=== PATIENT | female | born 1965 | race Caucasian/White ===

== ENCOUNTER → 2017-10-07 16:39 | Outpatient (CLI) | payer OTHER, SELFPAY | PROVIDERS: Visit Provider Otolaryngology Otolaryngology/Facial Plastic Surgery | DX: K14.0 Glossitis (principal); J02.9 Acute pharyngitis, unspecified | CPT/HCPCS: 87070 ==

== ENCOUNTER → 2017-10-21 08:14 | Outpatient (CLI) | payer OTHER, SELFPAY ==
--- NOTE | 2017-10-21 08:16 | US_ITS ---
STUDY: ABDOMINAL ULTRASOUND - RIGHT UPPER QUADRANT REASON FOR VISIT: Female, 52 years old. Elevated liver function tests. TECHNIQUE: Ultrasound evaluation of the right upper quadrant was performed with real-time and static rea-scale imaging. TECHNICAL QUALITY: Adequate. COMPARISON: None. FINDINGS: Liver: The liver measures 15.7 cm. There is increased echogenicity consistent with fatty infiltration. The bile ducts are within normal limits. There is hepatic color flow. The direction of portal flow is hepatopetal. There is no demonstrated mass lesion. Gallbladder: The patient is status post cholecystectomy. Common Bile Duct (C.B.D.): The common bile duct measures 5.5 mm. Pancreas: Normal size of the head of the pancreas. The head and body portions are obscured due to overlying bowel gas. There is normal echogenicity of the pancreas. There is no demonstrated pancreatic mass or cyst. Right Kidney: Normal size of the right kidney. The right kidney measures 10.1 cm x 4.8 cm x 4.4 cm. Normal renal cortex. The right cortex measures 1.4 cm. There is no demonstrated renal mass or cyst. There is no right hydronephrosis. There is a 4 mm calculus in the upper pole. US/Liver IMPRESSION: Fatty infiltration of the liver. Nonobstructive calculus in the upper pole of the right kidney. Electronically Signed: Philipp Gupta MD at 15:40 EST Tel [phone], Service support ,
[2017-10-21 10:20] LABS: Color, Urine Yellow (Yellow); Glucose, Dipstick Normal (Normal); Ketone-Dipstick Negative (Negative); Leukocyte Esterase-Dipstick 25 /ul (Negative); Nitrite-Dipstick Negative (Negative); Occult Blood-Urine 25 /ul (Negative); Protein-Dipstick 15 mg/dl (Negative); Urine Bilirubin Dipstick Negative (Negative); Urine Clarity Sl. Cloudy (Clear); Urine Urobilinogen Normal (Normal)
[2017-10-21 10:35] LABS: Rheumatoid Factor < 10.0 IU/mL (<15)
[2017-10-21 10:38] LABS: Protein, Urine (Random) 38.3 mg/dL (<11.9); Protein:Creat Ratio 147 mg/g CRE (0-200)
[2017-10-22 16:13] LABS: Anti-Centromere B Ab 0.3 AI (0.0-0.9); Anti-Jo <0.2 AI (0.0-0.9); Anti-Scleroderma-70 AB <0.2 AI (0.0-0.9); RNP Ab <0.2 AI (0.0-0.9); SJOGREN'S Anti-SS-A test < 0.2 AI (0.0-0.9); SJOGREN'S Anti-SS-B test < 0.2 AI (0.0-0.9); Smith Ab <0.2 AI (0.0-0.9)
[2017-10-22 17:09] LABS: ANTINUCLEAR ANTIBODIES DIRECT Negative (Negative); Anti-dsDNA Ab <1 IU/mL (0-9)
[2017-10-23 03:08] LABS: Complement C3 129 mg/dL (82-167)
[2017-10-23 07:17] LABS: CCP IgG Antibodies 4 units (0-19)
== END ==
PROVIDERS: Family Provider Internal Medicine; PCP Internal Medicine; Visit Provider Internal Medicine Rheumatology
DX: R74.8 Abnormal levels of other serum enzymes (principal); M06.09 Rheumatoid arthritis without rheumatoid factor, multiple sites; Z79.899 Other long term (current) drug therapy; M79.7 Fibromyalgia
CPT/HCPCS: 36415; 76705; 81002; 82570; 84156; 86038; 86160; 86200; 86225; 86235; 86431

== ENCOUNTER 2018-01-02 08:36 | Emergency (ER) | payer MEDICAID, SELFPAY ==
[2018-01-02 08:38] VITALS: BP 127/70; PULSE 110; RESP 22; TEMP 36.7; O2SAT 99; BMI 25.6
--- NOTE | 2018-01-02 08:48 | ED.VISSUMM ---
- ER Visit Summary Date of Service: 01/02/18 Chief Complaint: Back pain History of Present Illness: The patient is a 52 F who states that on she fell off of the stool. She states she fell flat on her back. And she states that she is not sure she fell onto her right back her left back but she states her tailbone hurts and it radiates down to her right leg. She denies any bowel or bladder dysfunction. She states the pain is worse in the mornings when she attempts to get up. She has been able to ambulate. She is in pain management for fibromyalgia. She also has a history of lupus, rheumatoid arthritis, and hypothyroidism. There is no hematuria. No shortness of breath. Physical Examination: Afebrile vital signs are stable Gen: Well-nourished well-developed VDIP Head: Normocephalic atraumatic Eyes: Perrl EOMI ENT: TMs clear no rhinorrhea moist mucous membranes Neck: Supple no lymphadenopathy no JVD nontender CVS: Regular rate rhythm no murmurs normal S1-S2 Respiratory: No distress clear to auscultation bilaterally chest nontender Abdomen: Soft nontender nondistended normal bowel sounds no masses Back: Tender to palpation in the lower right lumbar region and at the right SI joint. Patient has tenderness palpation in the right buttock. Extremity: Nontender no edema Skin: Normal color no rash Neuro: alert orientated ?3 CN II-XII intact normal strength sensation reflexes antalgic gait Psych: Normal affect normal mood Test Results: X-rays of the lumbar spine and pelvis were obtained. These were negative for fracture. Emergency Department Course and Treatment: Patient received a dose of Toradol. Patient already is in pain management and takes home pain medication as well as muscle relaxants. I recommend heat and rest and gentle stretching. This should resolve over time. Impression: 1. Acute lumbar muscle strain 2. Sciatica This note was generated with [employer] dictation software. It may contain incorrect words, spelling, and punctuation that were not noted in review of the chart prior to signing ED Disposition - Plan for ED Patient: Disposition: Home or Assisted Living Chief Complaint: Fall Instructions: ED Sciatica, ED Sprain Strain Lumbar Referrals: Sharath Coyle Jr., MD [Primary Care Provider] - 1 Week if not improving
--- NOTE | 2018-01-02 08:49 | RAD_ITS ---
STUDY: X-RAY - LUMBAR SPINE REASON FOR EXAM: Female, 52 years old. Fall multiple back pain TECHNIQUE: 3 view(s) of the lumbar spine were obtained. COMPARISON: None FINDINGS: Normal lumbar lordosis. There is no substantial scoliosis. There is a normal alignment of the vertebrae. Normal vertebral bodies and endplates. Normal disc space heights. Transitional S1 segment. The soft tissue structures are unremarkable. RAD/Lumbar Spine 2 or 3 Views IMPRESSION: Normal x-ray examination of the lumbar spine. Electronically Signed: Vitaliy Downey DO at 9:38 EDT , Service support ,
--- NOTE | 2018-01-02 08:49 | RAD_ITS ---
STUDY: X-RAY - PELVIS REASON FOR EXAM: Female, 52 years old. Fall, pain TECHNIQUE: One view of the pelvis was obtained. COMPARISON: None. FINDINGS: There is a non-specific bowel gas pattern. Normal visualized soft tissue structures. Normal bilateral iliac wings, sacroiliac joints and visualized sacrum. Normal visualized bilateral superior and inferior pubic rami. Normal pubic symphysis. Normal ischial tuberosities. Normal visualized right femoral head. Normal right acetabulum. Normal right hip joint. Normal visualized left femoral head. Normal left acetabulum. Normal left hip joint. RAD/Pelvis 1 or 2 Views IMPRESSION: Normal x-ray examination of the pelvis. Electronically Signed: Vitaliy Downey DO at 9:39 EDT , Service support ,
[2018-01-02] MEDS: Ketorolac 60 MG/2 ML Vial IM (08:56)
[2018-01-02 10:02] VITALS: RESP 16
== END 2018-01-02 10:02 | disposition home or self-care (01) ==
PROVIDERS: Emergency Provider Emergency Medicine; Family Provider Internal Medicine; PCP Internal Medicine
DX: S39.012A Strain of muscle, fascia and tendon of lower back, initial encounter (principal); M54.41 Lumbago with sciatica, right side; W07.XXXA Fall from chair, initial encounter; Y93.9 Activity, unspecified; Y92.9 Unspecified place or not applicable; M79.7 Fibromyalgia; M06.9 Rheumatoid arthritis, unspecified; E03.9 Hypothyroidism, unspecified; Z79.899 Other long term (current) drug therapy; Z72.0 Tobacco use
CPT/HCPCS: 72100; 72170; 96372; 99283

== ENCOUNTER → 2018-04-05 11:35 | Outpatient (CLI) | payer MEDICAID, SELFPAY ==
[2018-04-05 12:30] LABS: Amphetamine Urine VISTA NEGATIVE (<1000 ng/mL); Barbiturate Urine VISTA NEGATIVE (< 200 ng/mL); Benzodiazepine Urine VISTA NEGATIVE (< 200 ng/mL); Cocaine Urine VISTA NEGATIVE (< 300 ng/mL); Ecstacy Urine VISTA POSITIVE (< 500 ng/mL); Methadone Urine VISTA NEGATIVE (< 300 ng/mL); PCP Urine VISTA NEGATIVE (< 25 ng/mL); THC Urine VISTA NEGATIVE (< 50 ng/mL); Vista UDS pH Range 5
== END ==
PROVIDERS: Family Provider Internal Medicine; PCP Internal Medicine; Visit Provider Anesthesiology Pain Medicine
DX: F11.20 Opioid dependence, uncomplicated (principal)
CPT/HCPCS: 80307

== ENCOUNTER 2018-07-14 11:45 | Emergency (ER) | payer MEDICAID, SELFPAY ==
[2018-07-14 11:46] VITALS: BP 132/75; PULSE 102; RESP 17; TEMP 36.8; O2SAT 98; BMI 25.6
[2018-07-14 12:28] VITALS: BP 139/84; PULSE 95; RESP 20; O2SAT 93
[2018-07-14 12:50] LABS: Bedside Glucose 86 mg/dL (70-110)
--- NOTE | 2018-07-14 12:56 | EKG12_ITS ---
Test Reason : EW Blood Pressure : / mmHG Vent. Rate : 085 BPM Atrial Rate : 085 BPM P-R Int : 126 ms QRS Dur : 076 ms QT Int : 384 ms P-R-T Axes : 025 031 024 degrees QTc Int : 456 ms Poor data quality, interpretation may be adversely affected Normal sinus rhythm Normal ECG Confirmed by NIYA FLORES, SAM ([id number]), photographic editor HESHAM AGUILAR ([id number] on 07/16/2018 3:21:02 PM Referred By: BRETT Confirmed By:SAM NÚÑEZ MD
--- NOTE | 2018-07-14 12:56 | CT_ITS ---
STUDY: CT BRAIN WITHOUT CONTRAST REASON FOR EXAM: Female, 53 years old. Confusion weakness and tremors. RADIATION DOSAGE (If Supplied By Facility): CTDIvol = ( 60.81 ) mGy, DLP = ( 1089.89 ) mGycm TECHNIQUE: Transaxial CT imaging of the brain was performed without administration of intravenous contrast material. Individualized dose optimization techniques were used for this CT. COMPARISON: Comparison is made with prior study dated February 12, 2014. FINDINGS: Normal soft tissue structures. Normal calvarium. Normal size ventricles and extra-axial spaces for the patient's age. Normal white matter tracts of the cerebral hemispheres. There are small punctate calcifications of the basal ganglia which are seen in the aging brain as a normal variant. Normal brainstem. Normal cerebellum. There is no intracranial hemorrhage. There are no findings of an acute ischemic infarction. Normal visualized paranasal sinuses. CT/Brain/Head without Contrast IMPRESSION: Normal unenhanced CT scan of the brain. Electronically Signed: Philipp Gupta MD at 14:10 EST Tel [phone], Service support ,
--- NOTE | 2018-07-14 13:05 | ED.DCSUM_ITS ---
- ER Visit Summary Date of Service: 07/14/18 Chief Complaint: Cannot walk, confusion History of Present Illness: The patient is a 53 F multiple complaints, including inability to walk, confusion, shakiness and cannot remember some stuff. Since last night patient has been having progressive development of symptoms including tremor of the head, arms, legs, with weakness in the legs keeping her from walking normally. She states she had difficulty finding the doorknob, the light switch, the refrigerator, and states they lived in a house for 30 years and patient should know where he does objects are instinctively. She had multiple Botox injections 5 days ago for migraine headaches in the frontal forehead and posterior scalp. She states she has had a migraine for 2 days. She is having blurred vision, 3 weeks of chest pain since her son , and vomiting times 2 days. She denies any difficulty swallowing, shortness of breath, abdominal pain. Physical Examination: Vital signs: afebrile, hemodynamically stable, no hypoxia on room air General: well nourished, well developed, in no distress, awake and alert and able to answer all questions, full makeup including eye makeup in place Skin: warm, dry, no rash, no pallor HEENT: normocephalic and atraumatic, coarse horizontal head tremor; PERRL, EOMI, moist mucous membranes, no facial droop, tongue midline Cardiovascular: regular rate and rhythm without murmurs, no peripheral edema, 2+ pulses all distal extremities Respiratory: No increased work of breathing, lungs are clear to auscultation bilaterally, no rales, rhonchi or wheezing Abdominal: Abdomen is soft, nontender with normoactive bowel sounds, no guarding or rebound, no masses MSK: Moves all extremities, no deformities, coarse tremors of the upper and lower extremities, symmetric lower extremity weakness, brisk patellar reflexes and symmetric Neuro: Awake and alert, oriented ?4. No facial droop, sensation intact and symmetric, no truncal ataxia, patient able to sit up without any difficulty, finger to nose very slow Test Results: ] Abnormal Lab Results 07/14/18 07/14/18 07/14/18 12:26 12:45 12:45 WBC 6.9 RBC 4.50 Hgb 14.0 Hct 43.1 MCV 95.8 MCH 31.1 MCHC 32.5 RDW 12.7 RDW Differential 44.5 H Plt Count 359 MPV 9.9 Immature Gran % (Auto) 0.100 Neut % (Auto) 53.6 Lymph % (Auto) 33.0 [place] % (Auto) 8.1 Eos % (Auto) 4.3 Baso % (Auto) 0.9 Absolute Neuts (auto) 3.7 Absolute Lymphs (auto) 2.29 Total Counted Not Reportable PT 11.7 INR 0.9 APTT 28.2 Sodium Potassium Chloride Carbon Dioxide Anion Gap BUN Creatinine Estim Creat Clear Calc Est GFR (MDRD) Af Amer Est GFR (MDRD) Non-Af BUN/Creatinine Ratio Glucose Lactic Acid Calcium Magnesium Total Bilirubin AST ALT Alkaline Phosphatase Troponin I Total Protein Albumin Globulin Albumin/Globulin Ratio TSH Free T4 Urine Color Urine Clarity Urine pH Ur Specific [place] Urine Protein Urine Glucose (UA) Urine Ketones Urine Occult Blood Urine Nitrite Urine Bilirubin Urine Urobilinogen Ur Leukocyte Esterase Urine RBC Urine WBC Ur Squamous Epith Cells Urine Bacteria Urine Mucus Urine Opiates Screen Urine Methadone Screen Ur Barbiturates Screen Ur Phencyclidine Scrn Ur Amphetamines Screen U Methamphetamin-MDMA U Benzodiazepines Scrn Urine Cocaine Screen U Cannabinoids Screen Ur Drug Screen Comment Ethyl Alcohol POC Glucose 86 07/14/18 07/14/18 07/14/18 12:45 12:45 12:45 WBC RBC Hgb Hct MCV MCH MCHC RDW RDW Differential Plt Count MPV Immature Gran % (Auto) Neut % (Auto) Lymph % (Auto) [place] % (Auto) Eos % (Auto) Baso % (Auto) Absolute Neuts (auto) Absolute Lymphs (auto) Total Counted PT INR APTT Sodium 142 Potassium 4.4 Chloride 105 Carbon Dioxide 30.0 Anion Gap 7 BUN 6 L Creatinine 0.66 Estim Creat Clear Calc 78.86 Est GFR (MDRD) Af Amer 122 Est GFR (MDRD) Non-Af 101 BUN/Creatinine Ratio 9.1 L Glucose 83 Lactic Acid Calcium 8.9 Magnesium 2.0 Total Bilirubin 0.20 AST 65 H ALT 77 H Alkaline Phosphatase 129 H Troponin I < 0.015 Total Protein 7.0 Albumin 3.5 Globulin 3.5 Albumin/Globulin Ratio 1.0 TSH 0.02 L Free T4 1.44 Urine Color Urine Clarity Urine pH Ur Specific [place] Urine Protein Urine Glucose (UA) Urine Ketones Urine Occult Blood Urine Nitrite Urine Bilirubin Urine Urobilinogen Ur Leukocyte Esterase Urine RBC Urine WBC Ur Squamous Epith Cells Urine Bacteria Urine Mucus Urine Opiates Screen NEGATIVE Urine Methadone Screen NEGATIVE Ur Barbiturates Screen NEGATIVE Ur Phencyclidine Scrn NEGATIVE Ur Amphetamines Screen NEGATIVE U Methamphetamin-MDMA NEGATIVE U Benzodiazepines Scrn NEGATIVE Urine Cocaine Screen NEGATIVE U Cannabinoids Screen NEGATIVE Ur Drug Screen Comment Ethyl Alcohol < 3.0 POC Glucose 07/14/18 07/14/18 12:45 13:31 WBC RBC Hgb Hct MCV MCH MCHC RDW RDW Differential Plt Count MPV Immature Gran % (Auto) Neut % (Auto) Lymph % (Auto) [place] % (Auto) Eos % (Auto) Baso % (Auto) Absolute Neuts (auto) Absolute Lymphs (auto) Total Counted PT INR APTT Sodium Potassium Chloride Carbon Dioxide Anion Gap BUN Creatinine Estim Creat Clear Calc Est GFR (MDRD) Af Amer Est GFR (MDRD) Non-Af BUN/Creatinine Ratio Glucose Lactic Acid 0.9 Calcium Magnesium Total Bilirubin AST ALT Alkaline Phosphatase Troponin I Total Protein Albumin Globulin Albumin/Globulin Ratio TSH Free T4 Urine Color Yellow Urine Clarity Clear Urine pH 7.0 Ur Specific [place] 1.005 Urine Protein Negative Urine Glucose (UA) Normal Urine Ketones Negative Urine Occult Blood Negative Urine Nitrite Negative Urine Bilirubin Negative Urine Urobilinogen Normal Ur Leukocyte Esterase 25 H Urine RBC 0 SEEN Urine WBC 0-5 SEEN Ur Squamous Epith Cells 0 SEEN Urine Bacteria 0 SEEN Urine Mucus 0 SEEN Urine Opiates Screen Urine Methadone Screen Ur Barbiturates Screen Ur Phencyclidine Scrn Ur Amphetamines Screen U Methamphetamin-MDMA U Benzodiazepines Scrn Urine Cocaine Screen U Cannabinoids Screen Ur Drug Screen Comment Ethyl Alcohol POC Glucose Clinical Impression(s) from Imaging Studies Brain CT 07/14/18 12:56 IMPRESSION: Normal unenhanced CT scan of the brain. Electronically Signed: Philipp Gupta MD at 14:10 EST Tel [phone], Service support , Chest X-Ray 07/14/18 13:45 IMPRESSION: Hyperinflation. The lungs are clear. Electronically Signed: Philipp Gupta MD at 14:13 EST Tel [phone], Service support , Medications Given Discontinued Medications Sodium Chloride () 1,000 mls @ 999 mls/hr IV .Q1H1M ONE Stop: 07/14/18 13:56 Last Admin: 07/14/18 13:29 Dose: 999 mls/hr Ketorolac Tromethamine (Toradol) 15 mg IV X1 ONE Stop: 07/14/18 15:49 Last Admin: 07/14/18 16:02 Dose: 15 mg Lorazepam (Ativan) 1 mg IV X1 ONE Stop: 07/14/18 12:59 Last Admin: 07/14/18 13:29 Dose: 1 mg Emergency Department Course and Treatment: Presents with multiple neurologic complaints since yesterday with gradual progression of new symptoms. Botox injections were 5 days ago. Patient has no difficulty swallowing, breathing, or any facial paralysis noted. Her main complaint of weakness is in the lower extremities. This is not consistent with acute botulism. Workup was performed for underlying cause of patient's symptoms. CT showed no acute process in the head. Chest x-ray showed hyperinflation without any acute process. EKG showed sinus rhythm without ischemia or ectopy. Labs were unremarkable, including a negative alcohol, negative tox screen, normal free T4, no significant hepatic derangements, no electrolyte derangements, normal lactate, negative troponin. Patient received an IV dose of Ativan for symptomatic treatment. She had complete resolution of her tremors and felt much better after the Ativan. She was given Toradol for her migraine headache. Patient had come in complaining of coarse tremors in the head and the extremities, however she had immaculate makeup in place, which would be difficult to perform with involuntary tremors. Patient also had complete resolution of her symptoms with a dose of Ativan. This is unlikely to be an acute neurologic process. Patient was discussed with Dr. Brooke, who agreed that this did not sound consistent with any sort of Botox toxicity. Patient was back at her baseline at time of discharge. She was discharged home and instructed to follow-up with her pain management doctor who does her Botox injections if she has any further concerns. Treatment Plan: [] Disposition: [] Impression: Myoclonic jerking, migraine headache This note was generated with [employer] software. It may contain incorrect words, spelling, and punctuation that were not noted in review of the chart prior to signing ED Disposition - Plan for ED Patient: Disposition: Home or Assisted Living Chief Complaint: Confusion Instructions: ED Headache Migraine Referrals: Carmita George MD [Primary Care Provider] - 3-5 Days if not improving Additional Instructions: Please follow-up with your doctor who gives you the Botox injections for migraines if you continue to have tremors. It is unlikely that the Botox is causing these. Continue taking your medications as prescribed. If you have any worsening of your condition or any new concerning symptoms, please return immediately to the emergency department for another evaluation.
[2018-07-14 13:21] LABS: Absolute Lymphocyte Count 2.29 X10^3/ul (0.83-4.51); Absolute Neutrophil Count 3.7 X10^3/uL (2.0-7.7); Basophil# 0.06 X10^3/uL; Basophil% 0.9 % (0-1); Eosinophils% 4.3 % (0-5); Hematocrit 43.1 % (37-47); Lymphocyte # 2.29 X10^3/ul (4.0); Mean Corp Hgb Conc 32.5 g/gl (32-36); Mean Corpuscular Hgb 31.1 pg (27.0-32.0); Mean Corpuscular Volume 95.8 fL (81-99); Mean Platelet Vol. 9.9 fl (6.2-12.0); Monocyte# 0.56 X10^3/uL; Monocyte% 8.1 % (0-10); Neutrophil # 3.71 X10^3/uL (2.7-7.7); Neutrophil % 53.6 % (47-70); Platelet Count 359 K/mm3 (150-450); RBC Distribution Width CV 12.7 % (11.6-14.6); RBC Distribution Width SD 44.5 fl (35.1-43.9); White Blood Count 6.9 K/mm3 (4.4-11.0)
[2018-07-14 13:22] LABS: POSITIVE COUNT NO; POSITIVE DIFFERENTIAL NO; POSITIVE MORPHOLOGY NO
[2018-07-14 13:23] VITALS: O2SAT 94
[2018-07-14 13:27] LABS: Amphetamine Urine VISTA NEGATIVE (<1000 ng/mL); Barbiturate Urine VISTA NEGATIVE (< 200 ng/mL); Benzodiazepine Urine VISTA NEGATIVE (< 200 ng/mL); Cocaine Urine VISTA NEGATIVE (< 300 ng/mL); Ecstacy Urine VISTA NEGATIVE (< 500 ng/mL); Methadone Urine VISTA NEGATIVE (< 300 ng/mL); PCP Urine VISTA NEGATIVE (< 25 ng/mL); THC Urine VISTA NEGATIVE (< 50 ng/mL); Vista UDS pH Range 6
[2018-07-14] MEDS: 0.9% Normal Saline 1,000 ML 999 ML IV (13:29)
[2018-07-14] MEDS: LORazepam 2 MG/ML Syringe 1 MG IV (13:29)
[2018-07-14 13:36] LABS: AST(SGOT) 65 U/L (15-37); Alanine Aminotransfer ALT/SGPT 77 U/L (13-56); Albumin, Serum 3.5 g/dL (3.2-5.0); Alkaline Phosphatase 129 U/L (45-117); Anion Gap 7 (5-15); BUN 6 mg/dL (7-18); BUN/Creat Ratio 9.1 RATIO (10-20); Calcium,Total 8.9 mg/dL (8.5-10.1); Chloride 105 mmol/L (98-107); Creatinine, Serum 0.66 mg/dL (0.55-1.02); EST Glomerular Filtration Rate 101 mL/min (>60); Est Glom Filt Rate - Afr Amer 122 mL/min (>60); Estimated Creatinine Clearance 78.86 ml/min; Globulin 3.5 g/dL (2.2-4.2); Glucose 83 mg/dL (74-106); Potassium 4.4 mmol/L (3.5-5.1); Sodium Level 142 mmol/L (136-145); T4 Free Direct 1.44 ng/dL (0.76-1.46); Thyroid Stim Hormone (TSH) 0.02 uIU/mL (0.358-3.74)
[2018-07-14 13:42] LABS: Alcohol, Blood (Medical)-Serum < 3.0 mg/dL; International Normalized Ratio 0.9; Prothrombin Time (Protime)PT. 11.7 SECONDS (11.7-14.9)
[2018-07-14 13:43] LABS: Partial Thromboplast Time 28.2 Seconds (24.1-36.2)
--- NOTE | 2018-07-14 13:45 | RAD_ITS ---
STUDY: X-RAY CHEST REASON FOR EXAM: Female, 53 years old. Weakness, shortness of breath and tremors. TECHNIQUE: Single AP portable view of the chest. COMPARISON: Comparison is made with prior study dated January 01, 2017. FINDINGS: EKG electrodes are seen. Hyperinflation. The lungs are clear. There is no demonstrated pleural abnormality. Normal size heart. Normal mediastinum and alirio. Normal visualized pulmonary arteries. Normal visualized aortic arch and descending thoracic aorta. Normal visualized thoracic spine. Prior fusion in the lower cervical spine. There is no demonstrated abnormality of the visualized soft tissue structures of the upper abdomen. RAD/Chest 1 View IMPRESSION: Hyperinflation. The lungs are clear. Electronically Signed: Philipp Gupta MD at 14:13 EST Tel [phone], Service support ,
[2018-07-14 14:03] LABS: Lactic Acid 0.9 mmol/L (0.4-2.0)
--- NOTE | 2018-07-14 14:25 | CM.ED ---
Social Work Note Face to face with pt, her spouse, Aaron, and her friend. Referral from RN, Lucie Castellanos, for grief support. Pt and spouse report that they lost their son 3 weeks ago. Emotional support and condolences provided. Educate pt to individual counseling services as well as support groups. She states that she would prefer a support group. Provide with information and encourage her to look into the bereavement support group that [facility] has. Understanding expressed. Both deny further needs at this time, and are made aware that SW is available if needs arise. Diya Reid, VC++ DEVELOPER, ENVIRONMENTAL COMPLIANCE MANAGER
[2018-07-14 14:29] VITALS: BP 125/75; PULSE 91; RESP 20; O2SAT 98
[2018-07-14 14:45] LABS: Bacteria 0 SEEN /hpf (None Seen); Mucous, Urine 0 SEEN /hpf (<or=2+); Red Blood Cells-Urine 0 SEEN /hpf (0-5); Squamous Epithelial Cells - UA 0 SEEN /hpf (5-10)
[2018-07-14 14:52] LABS: Color, Urine Yellow (Yellow); Glucose, Dipstick Normal (Normal); Ketone-Dipstick Negative (Negative); Leukocyte Esterase-Dipstick 25 /ul (Negative); Nitrite-Dipstick Negative (Negative); Occult Blood-Urine Negative /ul (Negative); Protein-Dipstick Negative (Negative); Specific Gravity, Urine 1.005 (1.002-1.030); Urine Bilirubin Dipstick Negative (Negative); Urine Clarity Clear (Clear); Urine Urobilinogen Normal (Normal)
[2018-07-14 14:59] LABS: White Blood Cells 0-5 SEEN /hpf (0-5)
--- NOTE | 2018-07-14 15:04 | ED.RN ---
PAGED DR ELLISON
--- NOTE | 2018-07-14 15:40 | NURSING ---
pt ambulated to restroom without weakness or unsteady gait. pt stated i feel much better. pt informed of wait for ed to evaluate her findings.
--- NOTE | 2018-07-14 15:48 | ED.DEP ---
ED Disposition - Plan for ED Patient: Disposition: Home or Assisted Living Chief Complaint: Confusion Instructions: ED Headache Migraine Referrals: Carmita George MD [Primary Care Provider] - 3-5 Days if not improving Additional Instructions: Please follow-up with your doctor who gives you the Botox injections for migraines if you continue to have tremors. It is unlikely that the Botox is causing these. Continue taking your medications as prescribed. If you have any worsening of your condition or any new concerning symptoms, please return immediately to the emergency department for another evaluation.
[2018-07-14] MEDS: Ketorolac 15 MG/ML Vial IV (16:02)
[2018-07-14 16:03] VITALS: BP 134/89; PULSE 89; RESP 14; O2SAT 98
== END 2018-07-14 16:14 | disposition home or self-care (01) ==
PROVIDERS: Emergency Provider Emergency Medicine; Family Provider Family Medicine; PCP Family Medicine
DX: G25.3 Myoclonus (principal); G43.909 Migraine, unspecified, not intractable, without status migrainosus; R07.9 Chest pain, unspecified; Z98.84 Bariatric surgery status; Z79.899 Other long term (current) drug therapy
CPT/HCPCS: 70450; 71045; 80053; 80307; 80320; 81001; 82962; 83605; 83735; 84439; 84443; 84484; 85025; 85610; 85730; 93005; 96361; 96374; 96375; 99285; J7030; A4216; G0480

== ENCOUNTER 2019-02-05 08:57 | Emergency (ER) | payer MEDICAID, SELFPAY ==
[2019-02-05 08:59] VITALS: BP 115/91; PULSE 120; RESP 18; TEMP 36.2; O2SAT 96; BMI 28.0
[2019-02-05 09:15] LABS: Bedside Glucose 101 mg/dL (70-110)
--- NOTE | 2019-02-05 09:22 | EKG12_ITS ---
Test Reason : GEN ILLNESS Blood Pressure : / mmHG Vent. Rate : 107 BPM Atrial Rate : 107 BPM P-R Int : 124 ms QRS Dur : 084 ms QT Int : 346 ms P-R-T Axes : 055 000 011 degrees QTc Int : 461 ms Sinus tachycardia Inferior infarct , age undetermined Abnormal ECG Confirmed by NIYA FLORES, SAM ([id number]), rewrite editor PREM MELENDREZ ([id number]) on 02/08/2019 7:55:14 AM Referred By: JORDY Confirmed By:SAM NÚÑEZ MD
[2019-02-05 09:42] LABS: Mucous, Urine 0 SEEN /hpf (<or=2+); Red Blood Cells-Urine 0 SEEN /hpf (0-5); Squamous Epithelial Cells - UA 0 SEEN /hpf (5-10)
[2019-02-05 09:48] LABS: Color, Urine Yellow (Yellow); Glucose, Dipstick Normal (Normal); Ketone-Dipstick Negative (Negative); Leukocyte Esterase-Dipstick 100 /ul (Negative); Nitrite-Dipstick Positive (Negative); Occult Blood-Urine 10 /ul (Negative); Protein-Dipstick Negative (Negative); Specific Gravity, Urine 1.015 (1.002-1.030); Urine Bilirubin Dipstick Negative (Negative); Urine Clarity Clear (Clear); Urine Urobilinogen Normal (Normal)
--- NOTE | 2019-02-05 10:00 | ED.VIS.GEN ---
History of Present Illness Chief Complaint: General Illness Informant: Patient Onset: Weeks - 1 week Context: Gradual Onset Timing: Continuous Quality: Generally fatigued and tired Location: Diffuse Current Severity: Severe Maximum Severity: Severe Associated Symptoms: Lightheadedness Prior similar symptoms: Yes Recent Illness/Hospitalization: Yes - Patient diagnosed with urinary tract infection last week Past Medical History - Allergies and Home Meds Allergies/Adverse Reactions: Allergies hydrocodone bitartrate [From Vicodin] Allergy (Verified 02/05/19 09:04) Itching ibuprofen Allergy (Verified 02/05/19 09:04) Other Cannot take because of having gastric bypass Primary Care Physician: Carmita Mckenzie DO [Primary Care Provider] - Surgical History: cholecystectomy, gastric bypass, - - Carpal tunnel surgery BL, x 2, hysterectomy, Neck surgery, Breast reduction. Smoking Status: Current every day smoker - Family History Maternal Family History: Reports: Heart Disease Paternal Family History: Reports: Heart Disease Review of Systems All systems negative except as indicated General: Reports: Malaise Physical Exam Vital Signs/Narrative: Vital Signs Temp Pulse Resp BP Pulse Ox 02/05/19 08:59 97.1 F L 120 H 18 115/91 H 96 General: Well nourished, Well developed, No Acute Distress Head: Normocephalic, Atraumatic Eyes: Perrl, EOMI ENT: Moist mucous membranes Neck: Supple, Nontender Cardiovascular: Regular rate, Regular rhythm Respiratory: No distress, CTA bilaterally Abdomen: Soft, Nontender, Nondistended, Normal bowel sounds, No masses Back: Nontender Extremities: Nontender, No edema Skin: Normal color, No rash Neurological: Alert, Oriented x3, Cranial nerves II-XII grossly intact, Normal Strength, Normal Sensation, Normal Gait Diagnostic/Tx/Re-eval Chest X-Ray - ED: 2 View, Read by ED Physician, Read by Radiologist, Normal - Medical Decision Making Normal sinus rhythm 67 bpm. Patient was given fluids and oral Tylenol. Patient's laboratory work-up was unremarkable. She does have evidence of urinary tract infection with positive nitrates and 100 leukocytes. We were able to review her previous urine culture from last week and it was negative. She states she took 3 days of Keflex. We will place on Macrobid. Given first dose in the emergency department. The patient is not septic. She does not have an elevated white blood cell count. She is able to tolerate by mouth. Her repeat abdominal exam is soft and nontender. She has no CVA tenderness. She was agreeable with our plan. We did send a urine culture. She was advised to follow-up with her primary care physician next week. Return precautions given. Family agreeable as well. She was discharged home. ED Disposition - Plan for ED Patient: Disposition: Home or Assisted Living Diagnosis: UTI (urinary tract infection) Instructions: ED UTI Cystitis Female Prescriptions: Nitrofurantoin Macrocrystals [Macrobid] 100 mg PO Q12 #14 cap Referrals: Carmita Mckenzie DO [Primary Care Provider] -
[2019-02-05 10:08] LABS: Bacteria 2+ /hpf (None Seen); White Blood Cells 0-5 SEEN /hpf (0-5)
[2019-02-05 10:26] LABS: Absolute Lymphocyte Count 2.21 X10^3/ul (0.83-4.51); Absolute Neutrophil Count 7.5 X10^3/uL (2.0-7.7); Basophil# 0.03 X10^3/uL; Basophil% 0.3 % (0-1); Eosinophils% 2.8 % (0-5); Hematocrit 39.4 % (37-47); Hemoglobin 12.8 g/dl (12.0-15.0); Lymphocyte # 2.21 X10^3/ul (4.0); Lymphocyte % 20.4 % (19-41); Mean Corp Hgb Conc 32.5 g/gl (32-36); Mean Corpuscular Hgb 30.9 pg (27.0-32.0); Mean Corpuscular Volume 95.2 fL (81-99); Mean Platelet Vol. 9.5 fl (6.2-12.0); Monocyte# 0.82 X10^3/uL; Monocyte% 7.6 % (0-10); Neutrophil # 7.46 X10^3/uL (2.7-7.7); Neutrophil % 68.6 % (47-70); Platelet Count 388 K/mm3 (150-450); RBC Distribution Width CV 12.6 % (11.6-14.6); RBC Distribution Width SD 42.5 fl (35.1-43.9); Red Blood Count 4.14 M/mm3 (4.2-5.4); White Blood Count 10.9 K/mm3 (4.4-11.0)
[2019-02-05 10:27] LABS: POSITIVE COUNT NO; POSITIVE DIFFERENTIAL NO; POSITIVE MORPHOLOGY NO
[2019-02-05] MEDS: Ondansetron 4 MG/2 ML Vial IV (10:31)
[2019-02-05] MEDS: 0.9% Normal Saline 1,000 ML 1000 ML IV (10:32)
--- NOTE | 2019-02-05 10:40 | RAD_ITS ---
STUDY: X-RAY CHEST REASON FOR EXAM: Female, 53 years old. Cough TECHNIQUE: PA and lateral views of the chest. COMPARISON: 07/14/2018 FINDINGS: Fusion hardware of the lower cervical spine. Surgical anchors of the right humeral head noted. There are surgical clips of left upper abdomen. The lungs are clear and expanded. There is no demonstrated pleural abnormality. Normal size heart. Normal mediastinum and alirio. Normal visualized pulmonary arteries. Normal visualized aortic arch and descending thoracic aorta. No acute bony process. There are degenerative changes of the thoracic spine. There is no demonstrated abnormality of the visualized soft tissue structures of the upper abdomen. RAD/Chest PA and Lateral IMPRESSION: 1. Stable, nonacute x-ray examination of the chest. Electronically Signed: Naresh Nelson MD at 10:53 EDT , Service support ,
[2019-02-05 10:58] LABS: AST(SGOT) 51 U/L (15-37); Alanine Aminotransfer ALT/SGPT 83 U/L (13-56); Albumin, Serum 3.6 g/dL (3.2-5.0); Alkaline Phosphatase 127 U/L (45-117); Anion Gap 8 (5-15); BUN 10 mg/dL (7-18); BUN/Creat Ratio 16.6 RATIO (10-20); Bilirubin, Direct 0.07 mg/dL (0.00-0.30); Calcium,Total 8.7 mg/dL (8.5-10.1); Chloride 104 mmol/L (98-107); EST Glomerular Filtration Rate 111 mL/min (>60); Est Glom Filt Rate - Afr Amer 134 mL/min (>60); Estimated Creatinine Clearance 86.75 ml/min; Globulin 3.5 g/dL (2.2-4.2); Glucose 79 mg/dL (74-106); Potassium 3.9 mmol/L (3.5-5.1); Protein, Total 7.1 g/dL (6.4-8.2); Sodium Level 141 mmol/L (136-145)
[2019-02-05 11:36] VITALS: BP 112/81; BP 116/65; BP 121/78; PULSE 105; PULSE 88
[2019-02-05] MEDS: Nitrofurantoin Macrocrystals 100 MG Capsule PO (11:47)
[2019-02-05 11:50] VITALS: BP 121/74; PULSE 62; RESP 18; O2SAT 96
== END 2019-02-05 11:51 | disposition home or self-care (01) ==
PROVIDERS: Emergency Provider Physician Assistant Medical; Family Provider Family Medicine; PCP Family Medicine
DX: N39.0 Urinary tract infection, site not specified (principal); R53.1 Weakness; R05 Cough; E11.9 Type 2 diabetes mellitus without complications; Z90.49 Acquired absence of other specified parts of digestive tract; Z98.84 Bariatric surgery status; Z79.899 Other long term (current) drug therapy; F17.200 Nicotine dependence, unspecified, uncomplicated
CPT/HCPCS: 71046; 80048; 80076; 81001; 82962; 85025; 87086; 87088; 87186; 93005; 96361; 96374; 99285; J7030; A4216; J2405

== ENCOUNTER 2019-03-16 11:10 | Emergency (ER) | payer MEDICAID, SELFPAY ==
[2019-03-16 11:10] VITALS: BP 138/90; PULSE 86; RESP 19; TEMP 36.3; O2SAT 95; BMI 26.6
[2019-03-16 11:16] VITALS: TEMP 36.4
--- NOTE | 2019-03-16 11:29 | ED.VISSUMM ---
- ER Visit Summary Date of Service: 03/16/19 Chief Complaint: Cough, wheezing shortness of breath History of Present Illness: The patient is a 53 F history of frequent UTIs. Has had a cough since last Thursday. Saw her primary care physician on Thursday told her she had both of bronchitis and UTI. Started on Levaquin 750 once a day. Also 20 mg a day of prednisone. Patient states that he does not feel like the cough is getting better. Cough is productive of yellowish and green sputum. No chest pain. No hemoptysis. No history of DVT, PE of cardiac disease. Physical Examination: Vital signs stable afebrile. Pulse ox room air to assess hypoxia. heent exam unremarkable moist obese membranes posterior pharynx normal. neck nontender no jvd no lymphadenopathy. lungs dry hacking cough with expiratory wheezes primarily in the bases. equal symmetrical. no rhonchi or rales. heart regular rate and rhythm no murmur. abdomen soft and nontender. patient is moving all 4 extremities. calves are nontender without edema or cords. neurologically she is awake and alert. back nontender. Test Results: Chest x-ray AP lateral 2 views shows no acute abnormality. No pneumonia. Read both by myself and radiologist. Emergency Department Course and Treatment: Patient's history and exam are consistent with a bronchitis or bronchospasm. She does have a smoking history. Treated with albuterol and DuoNeb aerosols in the emergency department and 40 of prednisone p.o. Repeat exam at 12:25 PM patient is doing well. Wheezing is resolved. She and I and her discussed treatment options. She will continue the Levaquin. Prednisone 40 mg a day for 5 more days. And albuterol for her home nebulizer. Absolutely stop smoking. Treatment Plan: Continue her current antibiotic. 5 more days of prednisone 40 mg a day. And albuterol nebulizer treatments at home. Disposition: dc Impression: Acute bronchitis with bronchospasm History of tobacco abuse This note was generated with [employer] dictation software. It may contain incorrect words, spelling, and punctuation that were not noted in review of the chart prior to signing ED Disposition - Plan for ED Patient: Referrals: Carmita Mckenzie DO [Primary Care Provider] -
--- NOTE | 2019-03-16 11:37 | RAD_ITS ---
STUDY: X-RAY CHEST REASON FOR EXAM: Female, 53 years old. Increasing shortness of breath and cough. Prior gastric bypass surgery. TECHNIQUE: PA and lateral views of the chest. COMPARISON: None. FINDINGS: The lungs are clear and expanded. There is no demonstrated pleural abnormality. Normal size heart. Normal mediastinum and alirio. Normal visualized pulmonary arteries. Normal visualized aortic arch and descending thoracic aorta. There are diffuse degenerative changes of the visualized thoracic spine. Prior right rotator cuff surgery. Surgical clips are seen in the epigastric region. RAD/Chest PA and Lateral IMPRESSION: No acute abnormality is seen. Electronically Signed: Philipp Gupta, at 12:09 EDT , Service support ,
[2019-03-16 11:51] VITALS: PULSE 98; RESP 24
[2019-03-16] MEDS: Albuterol 2.5 MG/3 ML VIAL.NEB. INHALATION (11:51)
[2019-03-16] MEDS: Ipratropium/Albuterol Sulfate 3 ML AMPUL.NEB INHALATION (11:51)
[2019-03-16] MEDS: predniSONE 20 MG Tablet 40 MG PO (11:59)
--- NOTE | 2019-03-16 12:39 | ED.DEP ---
ED Disposition - Plan for ED Patient: Instructions: BRONCHITIS with Wheezing (Adult) Referrals: Carmita Mckenzie DO [Primary Care Provider] - 1 Week if not improving
--- NOTE | 2019-03-16 12:49 | ED.DEP ---
ED Disposition - Plan for ED Patient: Disposition: Home or Assisted Living Instructions: BRONCHITIS with Wheezing (Adult) Prescriptions: Prednisone [Deltasone] 40 mg PO DAILY 5 Days tab Prescription Printed Albuterol Aerosols [Ventolin Aerosols] 2.5 mg INHALATION Q2H PRN PRN #30 vial.neb. PRN Reason: Wheezing Prescription Printed Referrals: Carmita Mckenzie DO [Primary Care Provider] - 1 Week if not improving Additional Instructions: Stop smoking. Prednisone 40 mg a day for the next 5 days starting tomorrow. Continue and finish her antibiotic. Follow-up with your doctor if not improving.
[2019-03-16 13:06] VITALS: PULSE 95; RESP 18; TEMP 36.2; O2SAT 96
== END 2019-03-16 13:07 | disposition home or self-care (01) ==
PROVIDERS: Emergency Provider Emergency Medicine; Family Provider Family Medicine; PCP Family Medicine
DX: J20.9 Acute bronchitis, unspecified (principal); Z87.440 Personal history of urinary (tract) infections; F17.200 Nicotine dependence, unspecified, uncomplicated
CPT/HCPCS: 71046; 94640; 99283

== ENCOUNTER → 2019-08-04 11:14 | Outpatient (CLI) | payer MEDICAID, SELFPAY ==
[2019-03-31 11:04] VITALS: BMI 26.2
[2019-08-04 11:53] LABS: Hemoglobin 9.5 g/dL (12.0-15.0); Mean Corp Hgb Conc 30.6 g/dL (32-36); Mean Corpuscular Hgb 29.3 pg (27.0-32.0); Mean Corpuscular Volume 95.7 fL (81-99); Mean Platelet Vol. 9.7 fl (6.2-12.0); Platelet Count 587 K/mm3 (150-450); RBC Distribution Width CV 16.4 % (11.6-14.6); RBC Distribution Width SD 57.8 fl (35.1-43.9); Red Blood Count 3.24 M/mm3 (4.2-5.4)
[2019-08-04 12:06] LABS: Anion Gap 8 (5-15); BUN 6 mg/dL (7-18); Calcium,Total 8.5 mg/dL (8.5-10.1); Chloride 108 mmol/L (98-107); Creatinine, Serum 0.46 mg/dL (0.55-1.02); EST Glomerular Filtration Rate 151 mL/min (>60); Est Glom Filt Rate - Afr Amer 183 mL/min (>60); Glucose 80 mg/dL (74-106); Potassium 4.1 mmol/L (3.5-5.1); Sodium Level 143 mmol/L (136-145)
== END ==
LOC: LAB 11:23 → LABSPEC 11:23
PROVIDERS: Family Provider Family Medicine; PCP Family Medicine
DX: K65.1 Peritoneal abscess (principal); Z79.2 Long term (current) use of antibiotics; K65.9 Peritonitis, unspecified
CPT/HCPCS: 80048; 85027

== ENCOUNTER → 2019-08-08 10:47 | Outpatient (CLI) | payer MEDICAID, SELFPAY ==
[2019-03-31 11:04] VITALS: BMI 26.2
[2019-08-08 11:27] LABS: Absolute Lymphocyte Count 2.65 X10^3/uL (0.83-4.51); Basophil# 0.15 X10^3/uL; Basophil% 1.8 % (0-1); Eosinophil# 0.66 X10^3/uL; Hematocrit 31.4 % (37-47); Hemoglobin 9.6 g/dL (12.0-15.0); Lymphocyte # 2.65 X10^3/ul (4.0); Mean Corp Hgb Conc 30.6 g/dL (32-36); Mean Corpuscular Hgb 29.1 pg (27.0-32.0); Mean Corpuscular Volume 95.2 fL (81-99); Mean Platelet Vol. 10.2 fl (6.2-12.0); Monocyte# 0.77 X10^3/uL; Monocyte% 9.3 % (0-10); NRBC Flagged by Analyzer 0 % (0-5); Neutrophil # 4.04 X10^3/uL (2.7-7.7); Neutrophil % 48.7 % (47-70); Platelet Count 519 K/mm3 (150-450); RBC Distribution Width CV 15.9 % (11.6-14.6); RBC Distribution Width SD 55.1 fl (35.1-43.9); White Blood Count 8.3 K/mm3 (4.4-11.0)
== END ==
PROVIDERS: Family Provider Family Medicine; PCP Family Medicine; Referring Provider Family Medicine; Visit Provider Family Medicine
DX: K65.1 Peritoneal abscess (principal); K65.9 Peritonitis, unspecified; Z79.2 Long term (current) use of antibiotics
CPT/HCPCS: 85025

== ENCOUNTER 2022-05-06 08:38 | Emergency (ER) | payer MEDICARE, MEDICAID, SELFPAY ==
[2022-05-06 08:39] VITALS: BP 123/87; PULSE 109; RESP 16; TEMP 36.1; O2SAT 99; BMI 21.9
--- NOTE | 2022-05-06 08:55 | CT_ITS ---
STUDY: CT ABDOMEN AND PELVIS WITH CONTRAST REASON FOR EXAM: Female, 56 years old. Nausea vomiting distention guarding suspect SBO RADIATION DOSAGE (If Supplied By Facility): CTDIvol = ( 13.36 ) mGy, DLP = ( 336.58 ) mGycm TECHNIQUE: Transaxial images were obtained from the dome of the diaphragm to the symphysis pubis without oral contrast. IV 100mL Isovue-300 was administered. Sagittal and coronal images were reconstructed. Individualized dose optimization techniques were used for this CT. COMPARISON: None. FINDINGS: The visualized lung bases are unremarkable. The visualized portions of the heart are within normal limits. Normal liver. There are surgical clips in the gallbladder fossa consistent with a prior cholecystectomy. Normal spleen. Normal pancreas. Normal bilateral adrenal glands. Normal right kidney. Normal left kidney. Gastric bypass. Normal small intestine. Normal colon. The appendix is visualized and appears normal. Normal abdominal aorta. Normal inferior vena cava. Normal retroperitoneum. Normal urinary bladder. Normal abdominal wall. Normal osseous structures. CT/Abdomen/Pelvis W IV Cont ONLY IMPRESSION: Normal enhanced CT of the abdomen and pelvis. Electronically Signed: Fabio Ribeiro MD at 10:29 EDT ,
--- NOTE | 2022-05-06 08:57 | EDS_ITS ---
HPI HPI - GI History of Present Illness Chief Complaint: Abd Pain Detail of Chief Complaint: Abdominal pain with nausea vomiting Informant: patient Abdominal Pain/Flank Pain Onset: Days (Onset this past , Thursday) Context: Sudden Onset Timing: Continuous (Pain is now continuous initially intermittent) and Waxes and wanes Quality: Aching and Cramping Location: Diffuse Current Severity: Moderate Maximum Severity: Severe Worsened by: Car ride, Food and Movement Relieved by: Nothing Nausea/Vomiting/Emesis GI Symptom: Positive for Nausea and Vomiting Onset: Days Quality: Negative for Blood streaks, Coffee ground or Hematemesis Severity: Severe Diarrhea/Melena/Hematochezia GI Symptom: Positive for Diarrhea (2 episodes on Thursday only); Negative for Melena or Hematochezia Associated Symptoms Associated Symptoms: Negative for Dysuria, Frequency, Hematuria or Urgency Narrative Narrative: Patient is a 56-year-old woman with history of type 2 diabetes, hypothyroidism status post gastric bypass surgery who presents with abdominal pain. And initially she had 2 episodes of diarrhea. She has not had diarrhea since Thursday. She has had numerous episodes of vomiting. She states has been up since early this morning vomiting. There is no blood or coffee grounds. She is status post gastric bypass surgery and apparently is scheduled to have surgery later this month in [place]. She states she recently moved from [place]. She presently resides in [place]. She denies fever, chills night sweats. She denies HEENT, cardiac or respiratory symptoms. She does endorse decreased urine output. She does endorse lightheadedness with standing as well as thirst and dry mouth. She has had numerous prior bowel obstructions. Prior similar symptoms: Yes Recent Illness/Hospitalization: No PFSH PFSH Medical History Back pain Bronchitis Cervical herniated disc Chronic pain disorder Chronic UTI Depression Diabetes type 2, controlled Fibromyalgia Hiatal hernia History of bronchitis Hypothyroid Migraine headache BEAU (obstructive sleep apnea) Rheumatoid arthritis Home Medications albuterol sulfate 90 mcg/actuation aerosol inhaler (Ventolin HFA) 2 puff inhalation Q4H PRN PRN Shortness Of Breath 01/01/17 [History Last Taken Unknown] promethazine 25 mg tablet 25 mg PO Q6H PRN PRN Nausea 01/01/17 [History Last Taken 07/13/18] sumatriptan succinate 100 mg tablet (Imitrex) 100 mg PO .X1 PRN 01/02/18 [History Last Taken 07/12/18] zolpidem 10 mg tablet (Ambien) 10 mg PO QHS 01/02/18 [History Last Taken 07/01 11/15] cyanocobalamin (vitamin B-12) 1,000 mcg/mL injection solution 1 ml PO QMONTH 07/14/18 [History Last Taken 06/23/18] duloxetine 60 mg capsule,delayed release 60 mg PO BID 07/14/18 [History Last T [employer] 07/14/18] esomeprazole magnesium 40 mg capsule,delayed release (Nexium) 40 mg PO DAILY ACID REFLEX 07/14/18 [History Last Taken 07/14/18] lamotrigine 150 mg tablet 150 mg PO BID 07/14/18 [History Last Taken 07/14/18] levothyroxine 200 mcg tablet (Synthroid) 200 mcg PO DAILY THYROID 07/14/18 [History Last Taken 07/14/18] lorazepam 1 mg tablet 1 mg PO Q6H PRN PRN Anxiety 07/14/18 [History Last Taken 07/14/18] oxycodone-acetaminophen 5 mg-325 mg tablet 1 tab PO TID PRN PRN Pain 07/14/18 [History Last Taken 07/14/18] trazodone 50 mg tablet 50 mg PO QHS 07/14/18 [History Last Taken 07/13/18] nitrofurantoin monohydrate/macrocrystals 100 mg capsule 100 mg PO Q12 #14 caps 02/05/19 [Rx Last Taken Unknown] albuterol sulfate 2.5 mg/3 mL (0.083 %) solution for nebulization 2.5 mg (3 mL) inhalation Q2H PRN PRN Wheezing ##30 03/16/19 [Rx Last Taken Unknown] quetiapine 50 mg tablet 50 mg PO QHS 03/30/19 [History Last Taken Unknown] dicyclomine 10 mg capsule 20 mg PO TIDAC #20 CAPSULES 05/06/22 [Rx Last Taken Unknown] ondansetron 4 mg disintegrating tablet 4 mg PO Q8H PRN PRN Nausea #6 tabs 05/06/22 [Rx Last Taken Unknown] Allergy/AdvReac Type Severity Reaction Status Date / Time hydrocodone bitartrate Allergy Itching Verified 05/06/22 08:41 [From Vicodin] ibuprofen Allergy Other Verified 05/06/22 08:41 Family History Mother Asthma Depression Myocardial infarction Heart disease Father Heart disease Myocardial infarction Hypertension Sister Hepatitis Surgical History H/O discectomy H/O gastric bypass H/O repair of rotator cuff H/O thyroidectomy History of bilateral breast reduction surgery History of bunionectomy History of carpal tunnel release History of knee surgery Hx of shoulder surgery Social History (Updated 05/06/22 @ 08:[address] Terrence Muse MD) household members: none Smoking Status: Current every day smoker tobacco type: cigarettes second hand exposure: Yes alcohol intake: never substance use type: does not use ROS ROS ED Constitutional Constitutional ED: Denies chills, fever(s), subjective or weight loss ENT ENT ED: Denies ear pain, rhinorrhea or sore throat Cardiovascular Cardiovascular: Denies chest pain, palpitations or racing heartbeat Respiratory/Chest Respiratory/Chest: Denies cough, dyspnea or dyspnea on exertion Gastrointestinal Gastrointestinal: Reports abdominal pain, diarrhea, nausea and vomiting; Denies constipation or melena Genitourinary Genitourinary ED: Denies dysuria, hematuria or urinary frequency Musculoskeletal Musculoskeletal: Denies arthralgias, back pain, myalgias or neck pain Integumentary Denies abscess, Abrasions or rash Neurologic Neurologic: Reports weakness; Denies headache(s) or paresthesias Endocrine Endocrinology: Denies polydipsia, polyphagia or polyuria Hematologic/Lymphatic Hematologic/Lymphatic: Denies easy bleeding or easy bruising EXAM Physical Exam Const Vital Signs: 05/06/22 08:39 Temperature 97 F L Temperature Source Temporal Pulse Rate 109 H Respiratory Rate 16 Blood Pressure 123/87 H Blood Pressure Mean 99 Pulse Ox 99 Oxygen Delivery Method Room Air Positive well nourished and well developed; Negative for obese, cachectic, contractures or unkempt Constitutional Narrative: Patient appears uncomfortable. She has not lower extremity exam the hip and knee. She is holding her abdomen. She appears in obvious discomfort. General Appearance ED: well developed; Negative for unkempt, cachectic, contractures, NAD or pallor Nutritional Appearance: Negative for cachectic or obese HEENT Reports dry mucous membranes HEENT Narrative: Ears normal. Nares patent. normocephalic and atraumatic Mouth ED: Yes dry mucous membranes Mouth: dry mucous membranes Eyes PERRL and EOMs intact bilaterally General Eye ED: Negative for pale conjunctiva or scleral icterus Neck no lymphadenopathy, supple and no JVD Resp normal respiratory effort and clear to auscultation bilaterally Cardio regular rhythm, S1 normal heart sound, S2 normal heart sound and no murmurs Rate: tachycardic GI no masses; Negative for non-tender or non-distended Inspection: abdominal distention Auscultation: hyperactive bowel sounds Palpation: tender, guarding and rigid; Negative for hepatomegaly, splenomegaly, hernia, mass, pulsatile mass or rebound tenderness present Back/Spine no CVA tenderness Cervical Spine: Negative for cervical spine tenderness Thoracic Spine / Upper Back: Negative for thoracic spinal tenderness Lumbar Spine / Lower Back: Negative for lumbar spinal tenderness Extremity full ROM Neuro CN's II-XII intact bilaterally, moves all extremities and no sensory deficits noted Sensorium / Orientation: alert, oriented to person, oriented to place and oriented to time Psych mental status grossly normal and thought process normal Appearance: Negative for unkempt Skin no wounds General Skin Exam: Negative for jaundice or pallor Lesions: no lesions Rashes: no rashes MDM MDM MDM Narrative Medical decision making narrative: Prior small bowel obstructions prior surgery in the back the patient has nausea vomiting distention temp and a guarding with significant discomfort concerned she has a partial small bowel obstruction. CT of the abdomen with IV contrast was ordered. Appropriate blood work was ordered to assess white count, H&H as well as renal function and electrolytes. Patient was medicated with Zofran for the nausea and morphine for her pain. IV fluids were ordered since clinically patient is dehydrated and tachycardic. I was informed at 0946 the patient is still having significant pain. An additional 4 mg of morphine was ordered. I was informed at 1032 that patient states the only medicine that works is Dilaudid. Of note patient CT of the abdomen pelvis reveals no abnormality. Since she is having nausea, vomiting diarrhea will treat with Bentyl. She will receive no additional doses of opiates. Patient was informed of her results. She was discharged to home. Later in the room she was lying on her right side texting someone. She appeared no discomfort. Lab Data Attestation: I reviewed the patient's lab results. Lab results narrative: CBC is unremarkable. Electrolyte panel is unremarkable. Labs: Laboratory Results - last 24 hr 05/06/22 05/06/22 09:20 09:20 WBC 8.2 RBC 4.35 Hgb 12.8 Hct 41.0 MCV 94.3 MCH 29.4 MCHC 31.2 L RDW Std Deviation 48.7 H RDW Coeff of Twin 14.2 Plt Count 354 MPV 10.0 Immature Gran % (Auto) 0.400 Neut % (Auto) 56.8 Lymph % (Auto) 28.6 [place] % (Auto) 6.9 Eos % (Auto) 6.0 H Baso % (Auto) 1.3 H Absolute Neuts (auto) 4.7 Absolute Lymphs (auto) 2.35 Nucleated RBC % 0 Sodium 143 Potassium 4.6 Chloride 112 H Carbon Dioxide 26.0 Anion Gap 5 BUN 14 Creatinine 0.71 Estim Creat Clear Calc 70.81 Est GFR (MDRD) Af Amer 109 Est GFR (MDRD) Non-Af 90 BUN/Creatinine Ratio 19.6 Glucose 71 L Calcium 8.9 Radiography Diagnostic Testing: Clinical Impression(s) from Imaging Studies Abdomen/Pelvis CT 05/06/22 08:55 IMPRESSION: Normal enhanced CT of the abdomen and pelvis. Electronically Signed: Fabio Ribeiro MD at 10:29 EDT Reading Location ID and State: [facility] / [place] Tel , Service support , Discharge Plan Triage Chief Complaint: Abd Pain ED Provider: MichaTerrence Dx/Rx/DC Orders Clinical Impression: Combined abdominal pain, vomiting, and diarrhea, H/O gastric bypass, Diabetes type 2, controlled, Dehydration, mild Instructions: ED Diet Vomiting Diarrhea Prescriptions: New ondansetron [ondansetron] 4 mg tablet,disintegrating 4 mg PO Q8H PRN PRN (Reason: Nausea) Qty: 6 0RF dicyclomine 10 mg capsule 20 mg PO TIDAC Qty: 20 0RF No Action quetiapine 50 mg tablet 50 mg PO QHS promethazine 25 MG tablet 25 mg PO Q6H PRN PRN (Reason: Nausea) albuterol sulfate [Ventolin HFA] 1 INHALER inhaler 2 puff inhalation Q4H PRN PRN (Reason: Shortness Of Breath) sumatriptan succinate [Imitrex] 100 MG tablet 100 mg PO .X1 PRN zolpidem [Ambien] 10 MG tablet 10 mg PO QHS lamotrigine 150 MG tablet 150 mg PO BID Label Comments: TAKE 1 TABLET BY MOUTH TWICE A DAY trazodone 50 tablet 50 mg PO QHS oxycodone-acetaminophen 1 TABLET tablet 1 tab PO TID PRN PRN (Reason: Pain) Label Comments: TAKE 1 TABLET BY MOUTH 3 TIMES A DAY NEEDED FOR PAIN FILLABLE 06/27 cyanocobalamin (vitamin B-12) 1,000 MCG/ML solution 1 ml PO QMONTH Label Comments: INJECT DIRECTED MONTHLY esomeprazole magnesium [Nexium] 40 MG capsule 40 mg PO DAILY levothyroxine [Synthroid] 200 MCG tablet 200 mcg PO DAILY duloxetine 60 MG capsule,delayed release(DR/EC) 60 mg PO BID lorazepam 1 MG tablet 1 mg PO Q6H PRN PRN (Reason: Anxiety) Label Comments: TAKE 1 TABLET BY MOUTH 4 TIMES A DAY nitrofurantoin monohyd/m-cryst 100 MG capsule 100 mg PO Q12 Qty: 14 0RF albuterol sulfate 2.5 MG/3 ML solution for nebulization 2.5 mg inhalation Q2H PRN PRN (Reason: Wheezing) Qty: 30 0RF Primary Care Provider: Carmita Mckenzie Referrals: Carmita Mckenzie DO [Primary Care Provider] - 3-5 Days if not improving Disposition Disposition: Home, Self Care
[2022-05-06] MEDS: 0.9% Normal Saline 1,000 ML 1000 ML IV (09:16)
[2022-05-06] MEDS: Ondansetron 4 MG/2 ML Vial IV (09:17)
[2022-05-06] MEDS: Morphine 4 MG/ML Syringe IV ×2 (09:18→10:01)
[2022-05-06 09:26] LABS: Absolute Lymphocyte Count 2.35 X10^3/uL (0.83-4.51); Absolute Neutrophil Count 4.7 X10^3/uL (2.0-7.7); Basophil# 0.11 X10^3/uL; Basophil% 1.3 % (0-1); Eosinophil# 0.49 X10^3/uL; Hemoglobin 12.8 g/dL (12.0-15.0); Lymphocyte # 2.35 X10^3/ul (0.83-4.51); Lymphocyte % 28.6 % (19-41); Mean Corp Hgb Conc 31.2 g/dL (32-36); Mean Corpuscular Hgb 29.4 pg (27.0-32.0); Mean Corpuscular Volume 94.3 fL (81-99); Monocyte# 0.57 X10^3/uL; Monocyte% 6.9 % (0-10); NRBC Flagged by Analyzer 0 % (0-5); Neutrophil # 4.68 X10^3/uL (2.7-7.7); Neutrophil % 56.8 % (47-70); Platelet Count 354 K/mm3 (150-450); RBC Distribution Width CV 14.2 % (11.6-14.6); RBC Distribution Width SD 48.7 fl (35.1-43.9); Red Blood Count 4.35 M/mm3 (4.2-5.4); White Blood Count 8.2 K/mm3 (4.4-11.0)
[2022-05-06 09:40] LABS: Anion Gap 5 (5-15); BUN 14 mg/dL (7-18); BUN/Creat Ratio 19.6 RATIO (10-20); Calcium,Total 8.9 mg/dL (8.5-10.1); Chloride 112 mmol/L (98-107); Creatinine, Serum 0.71 mg/dL (0.55-1.02); EST Glomerular Filtration Rate 90 mL/min (>60); Est Glom Filt Rate - Afr Amer 109 mL/min (>60); Estimated Creatinine Clearance 70.81 ml/min; Glucose 71 mg/dL (74-106); Potassium 4.6 mmol/L (3.5-5.1); Sodium Level 143 mmol/L (136-145)
[2022-05-06] MEDS: Dicyclomine 10 MG Capsule 20 MG PO (10:37)
--- NOTE | 2022-05-06 10:38 | ED.RN ---
pt tells this rn that only medication that works is Dilaudid, pt given bentyl po. Dr arteaga
== END 2022-05-06 11:17 | disposition home or self-care (01) ==
PROVIDERS: Emergency Provider Emergency Medicine; PCP Family Medicine; Visit Provider Emergency Medicine
DX: R10.9 Unspecified abdominal pain (principal); M06.9 Rheumatoid arthritis, unspecified; E11.9 Type 2 diabetes mellitus without complications; E03.9 Hypothyroidism, unspecified; Z98.84 Bariatric surgery status; Z87.440 Personal history of urinary (tract) infections; F32.A Depression, unspecified; M79.7 Fibromyalgia; G47.33 Obstructive sleep apnea (adult) (pediatric); G43.909 Migraine, unspecified, not intractable, without status migrainosus; G89.4 Chronic pain syndrome; Z79.899 Other long term (current) drug therapy; F17.210 Nicotine dependence, cigarettes, uncomplicated; R11.2 Nausea with vomiting, unspecified; R19.7 Diarrhea, unspecified; E86.0 Dehydration
CPT/HCPCS: 74177; 80048; 85025; 96361; 96374; 96375; 96376; 99282; J7030; Q9967; A4216; J2405

== ENCOUNTER → 2022-09-26 | Outpatient (CLI) | payer MEDICARE, MEDICAID, SELFPAY | END | disposition home or self-care (01) | PROVIDERS: PCP Student in an Organized Health Care Education/Training Program; Visit Provider Nurse Practitioner Acute Care | DX: R50.9 Fever, unspecified (principal); J44.9 Chronic obstructive pulmonary disease, unspecified | CPT/HCPCS: 87632; 87635; C9803; U0003; U0005 ==

== ENCOUNTER → 2022-10-07 | Outpatient (CLI) | payer MEDICARE, MEDICAID, SELFPAY ==
[2022-10-07 14:52] LABS: Vitamin B12 374 pg/mL (211-911); Vitamin D,25 Hydroxy 12.7 ng/mL
[2022-10-07 14:55] LABS: AST(SGOT) 26 U/L (15-37); Alanine Aminotransfer ALT/SGPT 30 U/L (13-56); Albumin, Serum 3.9 g/dL (3.2-5.0); Alkaline Phosphatase 123 U/L (45-117); Anion Gap 7 (5-15); BUN 11 mg/dL (7-18); BUN/Creat Ratio 14.4 RATIO (10-20); Calcium,Total 9.2 mg/dL (8.5-10.1); Chloride 111 mmol/L (98-107); Creatinine, Serum 0.76 mg/dL (0.55-1.02); EST Glomerular Filtration Rate 83 mL/min (>60); Est Glom Filt Rate - Afr Amer 101 mL/min (>60); Glucose 110 mg/dL (74-106); Iron 93 ug/dL (50-170); Iron Binding Capacity,Total 386 ug/dL (250-450); PERCENT IRON SATURATION 24.1 % (15.0-55.0); Potassium 3.6 mmol/L (3.5-5.1); Protein, Total 7.9 g/dL (6.4-8.2); Sodium Level 140 mmol/L (136-145)
[2022-10-10 18:21] LABS: Vitamin B1, Thiamine 158.9 nmol/L (66.5-200.0)
== END | disposition home or self-care (01) ==
PROVIDERS: PCP Student in an Organized Health Care Education/Training Program
DX: Z98.84 Bariatric surgery status (principal)
CPT/HCPCS: 36415; 80053; 82306; 82607; 83540; 83550; 84425

== ENCOUNTER → 2022-10-14 | Outpatient (CLI) | payer MEDICARE, OTHER, MEDICAID, SELFPAY ==
--- NOTE | 2022-10-14 10:55 | RAD_ITS ---
INDICATION: PNA follow up EXAMINATION/TECHNIQUE: X-RAY - XR Chest 2 Views COMPARISON: None. FINDINGS: LINES/DEVICES: None. LUNGS: No consolidation, edema or effusion. No pneumothorax. MEDIASTINUM AND CARDIOVASCULAR STRUCTURES: Cardiac silhouette not enlarged. Central airways and mediastinal contour are unremarkable. BONES AND SOFT TISSUES: Degenerative vertebral changes and scoliosis. Surgical fusion at the lower cervical levels. RAD/Chest PA and Lateral IMPRESSION: No radiographic evidence of acute cardiopulmonary disease. Electronically Signed: Jaime Jones DO at 23:54 EST Reading Location ID and State: [facility] / [place] Tel [phone], Service support ,
--- NOTE | 2022-10-14 10:55 | RAD_ITS ---
STUDY: X-RAY - CERVICAL SPINE REASON FOR EXAM: Female, 57 years old. NECK PAIN TECHNIQUE: 2 view(s) of the cervical spine were obtained. COMPARISON: None FINDINGS: Normal anterior atlantoaxial articulation. Normal odontoid process. There is an exaggerated cervical lordosis. The patient is status post anterior fusion with disc space narrowing at the C6-C7 level. Disc space narrowing at the C5-C6 level with posterior spondylosis. Normal visualized intervertebral neuroforamina. The soft tissue structures are unremarkable. RAD/Cerv Spine 2 or 3 Views IMPRESSION: Status post anterior fusion at the C6-C7 level with disc space narrowing and spondylosis at the C5-C6 level. Electronically Signed: Philipp Gupta MD at 15:20 EST ,
--- NOTE | 2022-10-14 15:42 | PFTCOMP ---
COMPLETE PULMONARY FUNCTION TEST INTERPRETATION Brief HPI: Patient is a 57-year-old female, currently under the care of Dr. Orozco, who presents to [facility] for complete pulmonary function tests secondary to diagnosis of dyspnea. Respiratory therapist reports good effort and reproducible results. Interpretation: Forced expiration spirometry shows no large airways obstructive ventilatory defect with an FEV1 of 74% predicted. There is no significant bronchodilator response by strict ATS criteria. Spirograms are of good quality and plateau normally. The respiratory flow volume loop shows flattening of the expiratory and expiratory limbs. Lung volumes by body plethysmography show a normal total lung capacity at 4.72 L, 104% predicted. All other lung volumes are within normal limits. Diffusion capacity by carbon monoxide is normal at 86% predicted. The airway resistance is slightly elevated. No previous pulmonary function tests were available for review. Impression: Grossly normal pulmonary function test, but flow volume loop is suggestive of a possible fixed airway obstruction
== END | disposition home or self-care (01) ==
LOC: PSN 10:02
PROVIDERS: PCP Student in an Organized Health Care Education/Training Program; Referring Provider Internal Medicine Critical Care Medicine; Visit Provider Internal Medicine Critical Care Medicine
DX: M50.30 Other cervical disc degeneration, unspecified cervical region (principal); M47.892 Other spondylosis, cervical region; R06.02 Shortness of breath
CPT/HCPCS: 71046; 72040; 94060; 94726; 94729

== ENCOUNTER → 2022-10-16 | Outpatient (CLI) | payer MEDICARE, OTHER, MEDICAID, SELFPAY ==
[2022-10-16 12:52] VITALS: PULSE 100; PULSE 101; PULSE 105; PULSE 108; PULSE 113; PULSE 114; O2SAT 93; O2SAT 94; O2SAT 95; O2SAT 96; O2SAT 97; O2SAT 98
--- NOTE | 2022-10-16 13:22 | PCM.PSN.6M ---
PSN 6 Minute Walk Test 6 Minute Walk Test 6 Minute Walk Test: 6 Minute Walk Test PSN:6-Minute Walk Test Start: 10/16/22 12:51 Freq: Status: Active Protocol: RESP.6MINW Document 10/16/22 12:52 MANPREET (Rec: 10/16/22 12:53 MANPREET [id number]) 6 Minute Walk Test Date Performed 10/16/22 Time Performed 12:30 Height 5 ft 1.5 in Weight: 55.792 kg Weight in Pounds 123.[address]: Maurilio Orozco Assistive device used: None Pre-test Oxygen Delivery Method Room Air Pulse Ox (%) 97 Pulse Rate (60-100 beats/min) 101 H Dyspnea Cisco Scale (0-10) 0 Exertion Cisco Scale (6-20) 6 1st minute Oxygen Delivery Method Room Air Pulse Ox (%) 94 Pulse Rate (60-100 beats/min) 105 H 2nd minute Oxygen Delivery Method Room Air Pulse Ox (%) 93 Pulse Rate (60-100 beats/min) 108 H 3rd minute Oxygen Delivery Method Room Air Pulse Ox (%) 96 Pulse Rate (60-100 beats/min) 113 H 4th minute Oxygen Delivery Method Room Air Pulse Ox (%) 96 Pulse Rate (60-100 beats/min) 113 H 5th minute Oxygen Delivery Method Room Air Pulse Ox (%) 95 Pulse Rate (60-100 beats/min) 113 H 6th minute Oxygen Delivery Method Room Air Pulse Ox (%) 95 Pulse Rate (60-100 beats/min) 114 H Dyspnea Cisco Scale (0-10) 4 Exertion Cisco Scale (6-20) 14 Post-test Oxygen Delivery Method Room Air Pulse Ox (%) 98 Pulse Rate (60-100 beats/min) 100 Full Laps Walked 18 Partial Lap, Number of Tiles Walked 32 Total Distance Walked (ft) 1094 Interpretation Interpretation: The patient was able to ambulate 1094 feet over the course of 6 minutes on room air with no assistive devices or breaks. The patient did experience significant desaturation from a baseline of 97% to as low as 93% with ambulation. Patient was noted to have persistent tachycardia throughout testing with a peak heart rate of 114 bpm. These findings are consistent with a cardiovascular limitation exercise tolerance. Recommendations Recommendations: No supplemental oxygen is indicated at this time.
== END | disposition home or self-care (01) ==
LOC: PSN 12:36
PROVIDERS: PCP Student in an Organized Health Care Education/Training Program; Visit Provider Internal Medicine Critical Care Medicine
DX: R06.02 Shortness of breath (principal)
CPT/HCPCS: 94618

== ENCOUNTER → 2022-12-18 | Outpatient (CLI) | payer MEDICARE, OTHER, MEDICAID, SELFPAY ==
--- NOTE | 2022-12-18 09:05 | RAD_ITS ---
STUDY: X-RAY CHEST REASON FOR EXAM: Female, 57 years old. Shortness of breath. TECHNIQUE: PA and lateral views of the chest. COMPARISON: October 14, 2022. FINDINGS: The lungs are clear and expanded. There is no demonstrated pleural abnormality. Normal size heart. Normal mediastinum and alirio. Normal visualized pulmonary arteries. Normal visualized aortic arch and descending thoracic aorta. No osseous changes. Again seen is anterior fusion lower cervical spine. There is no demonstrated abnormality of the visualized soft tissue structures of the upper abdomen. RAD/Chest PA and Lateral IMPRESSION: No acute cardiopulmonary disease or interval change Electronically Signed: Gabriele Estrada DO at 17:05 EDT ,
== END | disposition home or self-care (01) ==
PROVIDERS: PCP Student in an Organized Health Care Education/Training Program; Referring Provider Nurse Practitioner Acute Care; Visit Provider Nurse Practitioner Acute Care
DX: R06.02 Shortness of breath (principal); J40 Bronchitis, not specified as acute or chronic
CPT/HCPCS: 71046; 87070; 87205

== ENCOUNTER → 2022-12-23 | Outpatient (CLI) | payer MEDICARE, OTHER, MEDICAID, SELFPAY ==
--- NOTE | 2022-12-23 12:22 | RAD_ITS ---
STUDY: X-RAY - CERVICAL SPINE REASON FOR EXAM: Female, 57 years old. FALL TECHNIQUE: 3 view(s) of the cervical spine were obtained. COMPARISON: None FINDINGS: Normal anterior atlantoaxial articulation. Normal odontoid process. Normal cervical lordosis. Status post surgical fusion of C6-7 anteriorly. Normal vertebral bodies and endplates. Slightly narrowed C5-6 and C6-7 disc space heights. The soft tissue structures are unremarkable. RAD/Cerv Spine 2 or 3 Views IMPRESSION: Degenerative and postsurgical changes of the visualized cervical spine. Electronically Signed: Jaime Jones DO at 23:35 EDT Reading Location ID and State: [facility] / [place] Tel [phone], Service support ,
== END | disposition home or self-care (01) ==
PROVIDERS: PCP Student in an Organized Health Care Education/Training Program; Referring Provider Anesthesiology Pain Medicine; Visit Provider Anesthesiology Pain Medicine
DX: M54.2 Cervicalgia (principal); W19.XXXA Unspecified fall, initial encounter
CPT/HCPCS: 72040

== ENCOUNTER → 2023-02-19 | Outpatient (CLI) | payer MEDICARE, OTHER, MEDICAID, SELFPAY ==
[2023-02-19 12:54] LABS: Amphetamine Urine VISTA NEGATIVE (<1000 ng/mL); Barbiturate Urine VISTA NEGATIVE (< 200 ng/mL); Benzodiazepine Urine VISTA NEGATIVE (< 200 ng/mL); Cocaine Urine VISTA NEGATIVE (< 300 ng/mL); Ecstacy Urine VISTA NEGATIVE (< 500 ng/mL); Methadone Urine VISTA NEGATIVE (< 300 ng/mL); PCP Urine VISTA NEGATIVE (< 25 ng/mL); THC Urine VISTA NEGATIVE (< 50 ng/mL); Vista UDS pH Range 5
== END | disposition home or self-care (01) ==
LOC: LAB 11:49
PROVIDERS: PCP Student in an Organized Health Care Education/Training Program; Referring Provider Anesthesiology Pain Medicine; Visit Provider Anesthesiology Pain Medicine
DX: F11.20 Opioid dependence, uncomplicated (principal)
CPT/HCPCS: 80307

== ENCOUNTER → 2023-08-05 | Outpatient (CLI) | payer MEDICARE, OTHER, SELFPAY ==
[2023-08-05 14:48] LABS: Amphetamine Urine VISTA NEGATIVE (<1000 ng/mL); Barbiturate Urine VISTA NEGATIVE (< 200 ng/mL); Benzodiazepine Urine VISTA NEGATIVE (< 200 ng/mL); Cocaine Urine VISTA NEGATIVE (< 300 ng/mL); Ecstacy Urine VISTA NEGATIVE (< 500 ng/mL); Methadone Urine VISTA NEGATIVE (< 300 ng/mL); PCP Urine VISTA NEGATIVE (< 25 ng/mL); THC Urine VISTA NEGATIVE (< 50 ng/mL); Vista UDS pH Range 6
== END | disposition home or self-care (01) ==
LOC: LAB 13:28
PROVIDERS: PCP Student in an Organized Health Care Education/Training Program; Referring Provider Anesthesiology Pain Medicine; Visit Provider Anesthesiology Pain Medicine
DX: F11.20 Opioid dependence, uncomplicated (principal)
CPT/HCPCS: 80307

== ENCOUNTER 2023-08-12 12:00 | Outpatient (RCR) | payer MEDICARE, OTHER, SELFPAY ==
--- NOTE | 2023-07-21 17:10 | HP.PTEVAL ---
Patient's Visit Information Visit Information Visit Information: LILI VIEIRA is a 58 year old F referred to Physical Therapy by Dr. Honey Guo MD with a diagnosis of Neck and back pain. Date of Evaluation: 07/21/23 Physical Therapist: Bobo Padron, PT, ATC Visit Plan Frequency: 2-3x /Week Duration: 4-6 Weeks Plan: LBP- PRone prop, REIL, core stab ex's, postural education Neck pain- Assess repeated movements next Rx Subjective Subjective: Pt reports she has had neck and LBP for greater than 10 years. Pt notes her LB hurts worse than her neck. Pt notes she is only able to work 17 hours per week until her pain limits her. Pt works at a [employer] at this time. Pt reports she had neck surgery about 10 years ago to remove a disc. Pt reports the surgery was unsuccessful as her pain remained there and her B UE radiculopathy has remained intermittent. Pt reports she has significant sleep difficulty at this time secondary to pain. Pt reports she gets tingling and numbness in her R LE intermittently at this time. Pt reports prolonged walking and standing increases her R LE radiculopathy. Pt reports she has no known cause for her neck and UE pain. Pt reports she3 is very limited with all IADL's secondary to her pain. I dont do much. Pt reports she has had recent x rays but was not given the results. Pt reports she is here today so she can get an approval for MRI. Pt reports she gets migraines as a result of her neck pain Pain Neck pain: Pain Intensity (Out of 10): 8 Pain Intensity Range: 10 LBP: Pain Intensity (Out of 10): 6 Pain Intensity Range: 9 Objective Objective: Neuro: R UE and LE sensation is hyposensitive throughout. L UE/LE sensation is WNL to light touch. B bicipital and patellar reflex 1/3 MMT: B UE's and LE's are grossly 4-/5 throughout ROM: B LE's are WFL when compared bilaterally. Pt is severely limited with L/S extension. All other ranges are WNL Repeated movements: RFIS 10x1 peripheralized into R LE. Prone prop on elbows 1 min x 2 centralized sx's Balance/Special Test Scores Oswestry Low Back Score: 30 Goals Goal 1:: Decrease neck and back pain x 50% to aid with sleep Goal Time Frame: 4-6 Weeks Goal 2:: Decrease the frequency and intensity of R LE radiculopathy x 50% to aid with ambulation Goal Time Frame: 4-6 Weeks Goal 3:: I with HEP Goal Time Frame: 4-6 Weeks Rehabilitation Potential Physical Therapy Diagnosis: Pt has neck and back pain secondary to degenerative changes Rehabilitation Potential: Good Anticipated Interventions Patient/Client Instruction: Educate patient on: Condition and Plan of Care For the Purpose of:: To improve self management Therapeutic Exercise to Include: Strength training, Endurance training, Body mechanics, Postural training, Dynamic Lumbar Stabilization and Grant Exercises For the Purpose of:: To decrease pain, To increase ROM and To improve muscle performance and motor function Text: Thank you for the opportunity to evaluate your patient. For Medicare and Medicare HMO plans, please review the plan of care and approve it. It will need to be FAXED BACK to us at [phone] for Medicare purposes. For Medicare only, by signing this I certify the plan of care. Please let me know if there are questions or concerns regarding this plan of care. Physician Signature: Date:
--- NOTE | 2023-12-10 16:34 | HP.PTDCNRP_ITS ---
Patient Information Patient Information: LILI VIEIRA was seen in my office for initial evaluation on 07/21/23. The following Plan of Care was established for this patient: POC Established Initial Frequency: 2-3x /Week Initial Duration: 4-6 Weeks Anticipated Interventions Patient/Client Instruction: Educate patient on: Condition and Plan of Care For the Purpose of:: To improve self management Therapeutic Exercise to Include: Strength training, Endurance training, Body mechanics, Postural training, Dynamic Lumbar Stabilization and Grant E xercises For the Purpose of:: To decrease pain, To increase ROM and To improve muscle performance and motor function Last Seen Last Seen: This patient was last seen in our office . Pertinent comments regarding their Physical therapy will appear below: Pt was treated for 4 PT visits for neck and low back pain through the date of 08/12/23. Pt has not returned through todays date and is discontinued at this time. At this point I will be discontinuing this patient from physical therapy. I would be happy to see this patient again in the future if found appropriate by the physician. Thank you! Bobo Padron, PT, ATC Balance/Gait/Functional tests Balance/Special Test Scores Oswestry Low Back Score: 30
== END 2023-08-12 19:00 | disposition home or self-care (01) ==
LOC: PT 12:00
PROVIDERS: PCP Student in an Organized Health Care Education/Training Program; Referring Provider Anesthesiology Pain Medicine; Visit Provider Anesthesiology Pain Medicine
DX: M54.2 Cervicalgia (principal)
CPT/HCPCS: 97012; 97110; 97161; 97530

== ENCOUNTER 2024-02-16 09:03 | Inpatient (IN) | payer MEDICARE, OTHER, SELFPAY ==
[2024-02-16] VITALS (12 sets, daily range): BP systolic 110–155; BP diastolic 62–94; PULSE 74–98; RESP 14–27; TEMP 36.4–37.2; O2SAT 91–96; BMI 28.3; BMI 28.7
--- NOTE | 2024-02-16 09:27 | EKG12_ITS ---
Test Reason : GENERAL Blood Pressure : / mmHG Vent. Rate : 088 BPM Atrial Rate : 088 BPM P-R Int : 120 ms QRS Dur : 082 ms QT Int : 358 ms P-R-T Axes : 043 002 071 degrees QTc Int : 433 ms Normal sinus rhythm Low voltage QRS Possible Inferior infarct , age undetermined Abnormal ECG Confirmed by NIYA FLORES, SAM ([id number]), video editor PREM MELENDREZ ([id number]) on 02/18/2024 8:12:37 AM Referred By: Confirmed By:SAM NÚÑEZ MD
--- NOTE | 2024-02-16 09:28 | EDS_ITS ---
HPI History of Present Illness Chief Complaint: Shortness of Breath Informant: patient Onset/Context/Timing Onset: Today Context: gradual Timing: Intermittent Quality: Positive for Dyspnea on exertion and Wheezing Current Severity: Mild Maximum Severity: Mild Associated Symptoms cough Chest Pain: Positive for None Narrative Narrative: 58-year-old female history of prior gastric bypass. Says she has been short of breath nonproductive cough last several days today noticed her home pulse ox was only 86% on room air. Denies any chest pain. No hemoptysis. No fever. No vomiting or diarrhea. PE Risk Factors: Negative for Cancer, OCP + Smoking + > 35, Prior DVT or PE, Recent immobilization, Recent surgery or Recent travel Prior similar symptoms: Yes Recent Illness/Hospitalization: No PFSH PFSH Medical History Diabetes type 2, controlled BEAU (obstructive sleep apnea) Bronchitis Hiatal hernia Depression Chronic UTI Cervical herniated disc History of bronchitis Back pain Migraine headache Fibromyalgia Chronic pain disorder Hypothyroid Rheumatoid arthritis Home Medications ?Medication ?Instructions ?Recorded ?Last Taken ?Type sumatriptan succinate 100 mg 100 mg PO .X1 PRN 01/02/18 07/12/18 History tablet (Imitrex) zolpidem 10 mg tablet (Ambien) 10 mg PO QHS 01/02/18 07/13/18 History duloxetine 60 mg capsule,delayed 60 mg PO BID 07/14/18 07/14/18 History release esomeprazole magnesium 40 mg 40 mg PO DAILY ACID REFLEX 07/14/18 07/14/18 History capsule,delayed release (Nexium) levothyroxine 200 mcg tablet 200 mcg PO DAILY THYROID 07/14/18 07/14/18 History (Synthroid) albuterol sulfate 90 mcg/actuation 2 puff inhalation Q4H PRN 11/13/22 Unknown Rx aerosol inhaler shortness of breath or wheezing #8.5 grams Nebulizer machine #1 ea 12/19/22 Unknown Rx albuterol sulfate 2.5 mg/3 mL 2.5 mg inhalation Q2H PRN Wheezing 02/16/24 Unknown History (0.083 %) solution for nebulization amitriptyline 75 mg tablet 75 mg PO QHS 02/16/24 Unknown History fluticasone furoate 200 1 ea inhalation DAILY 02/16/24 Unknown History mcg-vilanterol 25 mcg/dose inhalation powder lamotrigine 25 mg tablet See Rx Instructions PO .COMPLEX 02/16/24 Unknown History nicotine 14 mg/24 hr daily 1 patch topical DAILY 02/16/24 Unknown History transdermal patch tizanidine 4 mg capsule 4 mg PO TID PRN PRN muscle spasm 02/16/24 Unknown History topiramate 100 mg tablet 100 mg PO BID 02/16/24 Unknown History Allergy/AdvReac Type Severity Reaction Status Date / Time hydrocodone bitartrate (From Allergy Itching Verified 02/16/24 09:04 Vicodin) ibuprofen Allergy Other Verified 02/16/24 09:04 Family History Mother Asthma Depression Myocardial infarction Heart disease Father Heart disease Myocardial infarction Hypertension Sister Hepatitis Surgical History History of knee surgery Hx of shoulder surgery History of bilateral breast reduction surgery H/O repair of rotator cuff H/O thyroidectomy H/O discectomy History of carpal tunnel release History of bunionectomy H/O gastric bypass Social History household members: none Smoking Status: Current every day smoker tobacco type: cigarettes second hand exposure: Yes alcohol intake: never substance use type: does not use ROS ROS ED ROS Narrative Nonproductive cough. Shortness of breath. No chest pain. No fever. No hemoptysis. Review of Systems ROS Unobtainable: Denies due to encephalopathy Constitutional Constitutional ED: Denies chills or fever(s) Eyes Eyes: Denies blurry vision ENT ENT ED: Denies ear pain Cardiovascular Cardiovascular: Denies chest pain Respiratory/Chest Respiratory/Chest: Reports cough, dyspnea and other Details: Wheezing Gastrointestinal Gastrointestinal: Denies abdominal pain Genitourinary Genitourinary ED: Denies dysuria or hematuria Musculoskeletal Musculoskeletal: Denies arthralgias or back pain Integumentary Denies abscess or Abrasions Neurologic Neurologic: Denies headache(s) Psychiatric Psychiatric: Denies anxiety Endocrine Endocrinology: Denies cold intolerance Hematologic/Lymphatic Hematologic/Lymphatic: Denies easy bleeding Allergic/Immunologic Allergic/Immunologic ED: Denies mouth swelling, tongue swelling or urticaria EXAM Physical Exam Narrative Exam Narrative: Well-appearing 38-year-old female. Vital signs stable afebrile. Current pulse ox 90% room air no signs hypoxia. H EENT exam timings membranes otherwise unremarkable. Neck nontender JVD. Lungs dry cough. Expiratory wheezes. No rales or rhonchi. Equal and symmetrical. Heart regular rhythm no murmur. Abdomen soft nontender. Moving all 4 extremities. Calves are nontender without edema or cords. Neurologically she is awake and alert no focal motor deficits. Const Vital Signs: 02/16/24 09:03 02/16/24 09:41 02/16/24 09:57 Temperature 99 F Temperature Source Temporal Pulse Rate 98 88 Respiratory Rate 14 16 Respiratory Effort Respiratory Depth Respiratory Pattern Blood Pressure 110/74 Blood Pressure Mean 86 Pulse Ox 92 91 Oxygen Delivery Method Room Air Simple Mask 02/16/24 09:57 02/16/24 10:19 02/16/24 11:06 Temperature 98.7 F 97.6 F L Temperature Source Temporal Pulse Rate 84 84 Respiratory Rate 21 H 27 H Respiratory Effort Short of Breath Respiratory Depth Normal Respiratory Pattern Normal Blood Pressure 147/84 H 155/94 H Blood Pressure Mean 105 114 Pulse Ox 92 91 Oxygen Delivery Method Room Air Room Air Positive well nourished and well developed; Negative for obese, cachectic, contractures or unkempt General Appearance ED: well developed and NAD; Negative for unkempt, cachectic, contractures or pallor Nutritional Appearance: Negative for cachectic or obese HEENT Reports moist mucous membranes; Denies dry mucous membranes atraumatic; Negative for trauma or tenderness Mouth ED: No dry mucous membranes Mouth: No dry mucous membranes Eyes PERRL and EOMs intact bilaterally General Eye ED: Negative for pale conjunctiva or scleral icterus Neck no lymphadenopathy, supple, no meningeal signs and no JVD General: Negative for tenderness Lymph Lymphatic: Negative for other Chest Wall Chest: Negative for other Resp normal respiratory effort and No clear to auscultation bilaterally Resp Narrative: Expiratory wheezing bilaterally. Auscultation: wheezes; Negative for rales, rhonchi or diminished lung sounds Cardio regular rate, regular rhythm, S1 normal heart sound, S2 normal heart sound and no murmurs Rate: Negative for bradycardia or tachycardic Rhythm: Negative for abnormal rhythm GI non-tender, non-distended and no masses Inspection: Negative for other Auscultation: normoactive bowel sounds Palpation: soft; Negative for tender, guarding or rebound tenderness present Bladder / Kidney Exam: No other Back/Spine no CVA tenderness and normal to inspection General Back: Negative for CVA tenderness or tenderness Extremity normal to inspection General Extremety ED: Negative for edema or tenderness General Extremity: Negative for edema Neuro oriented x3 and CN's II-XII intact bilaterally [place] Coma Scale: document GCS findings Sensorium / Orientation: alert, oriented to person, oriented to place and oriented to time; Negative for orientation impaired, confused, lethargic or stuporous Speech: speech normal Motor Exam: strength 5/5 throughout Psych mental status grossly normal Appearance: Negative for unkempt Attitude: No agitated and No other Mood & Affect: Negative for depressed, anxious or tearful Thought Process: normal thought process Skin no wounds General Skin Exam: Negative for jaundice or pallor Lesions: no lesions Rashes: no rashes Trauma: Negative for abrasion or laceration MDM MDM MDM Narrative Medical decision making narrative: 58-year-old female with nonproductive cough and wheezing. Reportedly a pulse ox of 87% at home. She is having no chest pain or hemoptysis. No history of DVT or PE or risk factors. I think this is underlying URI she may have underlying lung disease. Chest x-ray and labs are being obtained. She will be treated with DuoNeb and albuterol aerosols for her wheezing and oral prednisone. Repeat exam unchanged. She is still wheezing after the aerosols and the oral steroids. Nurses ambulated her and her pulse ox dropped to 86 to 87% on room air. Chest x-ray is consistent with a multilobar left-sided and right lower lobe pneumonia. She will be started on Rocephin and Zithromax. She will be admitted. History & Record Review Discussion w/independent historian: Patient Additional record(s) reviewed:: Prior inpatient record, Prior outpatient record, Prior ED visit and Prior labs Lab Data Attestation: I reviewed the patient's lab results. Lab results narrative: CBC normal. White count 8. H&H 12 and 38. Platelets 339. Chemistries normal gap 8. Normal BUN and creatinine. Glucose 121. RSV, COVID and flu swab negative. Labs: Laboratory Results - last 24 hr 02/16/24 09:50 WBC 8.9 RBC 3.84 L Hgb 12.3 Hct 38.0 MCV 99.0 MCH 32.0 MCHC 32.4 RDW Std Deviation 47.0 H RDW Coeff of Twin 13.1 Plt Count 339 MPV 9.4 Immature Gran % (Auto) 1.000 H Neut % (Auto) 78.9 H Lymph % (Auto) 14.1 L [place] % (Auto) 3.9 Eos % (Auto) 1.5 Baso % (Auto) 0.6 Absolute Neuts (auto) 7.0 Absolute Lymphs (auto) 1.26 Nucleated RBC % 0 Sodium 138 Potassium 3.5 Chloride 107 Carbon Dioxide 23.0 Anion Gap 8 BUN 11 Creatinine 0.79 Estim Creat Clear Calc 72.21 Est GFR (MDRD) Af Amer 96 Est GFR (MDRD) Non-Af 79 BUN/Creatinine Ratio 13.9 Glucose 121 H Calcium 9.0 Radiography Chest X-Ray - ED: 1 View, Read by ED Physician, Heart, Mediastinum, Bony Structures, Chronic Changes, Right Infiltrate and Left Infiltrate Diagnostic Testing: Clinical Impression(s) from Imaging Studies Chest X-Ray 02/16/24 10:00 IMPRESSION: Bilateral patchy airspace disease worse in the left hemithorax. This may represent either CHF or bilateral pulmonary infiltrates. Follow-up recommended. Electronically Signed: Philipp Gupta MD at 10:14 EDT , Chest x-ray, portable, single view interpreted by myself shows opacities in both the left upper and lower lobes and also right lower lobe. This could be secondary to viral pneumonia versus a multilobar bacterial pneumonia. Normal cardiac silhouette. No effusions. Rhythm Strip Rhythm Strip: Sinus Rhythm Rate: 88 Ectopy: None EKG Initial EKG: Attestation: I personally reviewed and interpreted this EKG as follows: Interpretation: Sinus Rhythm and No Acute Injury Pattern Comments: Normal sinus rhythm rate 88 no acute signs of [place] or ischemia. Low voltage. Prior EKG tracings: available for review Discharge Plan Dx/Rx/DC Orders Clinical Impression: Bilateral pneumonia, Hypoxia, Bilateral wheezing, Tobacco abuse Disposition Disposition: Acute Care Hospital [facility]
[2024-02-16] MEDS: Ipratropium/Albuterol Sulfate 3 ML AMPUL.NEB INHALATION (09:39)
[2024-02-16] MEDS: Albuterol 2.5 MG/3 ML VIAL.NEB. INHALATION ×2 (09:39→19:30)
[2024-02-16] MEDS: predniSONE 20 MG Tablet 60 MG PO (09:49)
[2024-02-16 09:57] LABS: Absolute Lymphocyte Count 1.26 X10^3/uL (0.83-4.51); Basophil# 0.05 X10^3/uL; Basophil% 0.6 % (0-1); Eosinophil# 0.13 X10^3/uL; Eosinophils% 1.5 % (0-5); Hemoglobin 12.3 g/dL (12.0-15.0); Lymphocyte # 1.26 X10^3/ul (0.83-4.51); Lymphocyte % 14.1 % (19-41); Mean Corp Hgb Conc 32.4 g/dL (32-36); Mean Platelet Vol. 9.4 fl (6.2-12.0); Monocyte# 0.35 X10^3/uL; Monocyte% 3.9 % (0-10); NRBC Flagged by Analyzer 0 % (0-5); Neutrophil # 7.04 X10^3/uL (2.7-7.7); Neutrophil % 78.9 % (47-70); Platelet Count 339 K/mm3 (150-450); RBC Distribution Width CV 13.1 % (11.6-14.6); Red Blood Count 3.84 M/mm3 (4.2-5.4); White Blood Count 8.9 K/mm3 (4.4-11.0)
--- NOTE | 2024-02-16 10:00 | RAD_ITS ---
STUDY: X-RAY CHEST REASON FOR EXAM: Female, 58 years old. Chest pain TECHNIQUE: Single AP portable view of the chest. COMPARISON: Comparison is made with prior study dated December 18, 2022. FINDINGS: EKG electrodes are seen. Bilateral patchy airspace disease more prominent in the left hemithorax. This may represent either CHF or bilateral pneumonic infiltrations. Follow-up recommended. There is no demonstrated pleural abnormality. Normal size heart. Normal mediastinum and alirio. Normal visualized pulmonary arteries. Normal visualized aortic arch and descending thoracic aorta. There are diffuse degenerative changes of the visualized thoracic spine. Prior fusion of the lower cervical spine as well as prior rotator cuff surgery on the right side. There is no demonstrated abnormality of the visualized soft tissue structures of the upper abdomen. RAD/Chest 1 View (Portable) IMPRESSION: Bilateral patchy airspace disease worse in the left hemithorax. This may represent either CHF or bilateral pulmonary infiltrates. Follow-up recommended. Electronically Signed: Philipp Gupta MD at 10:14 EDT ,
[2024-02-16 10:14] LABS: Anion Gap 8 (5-15); BUN 11 mg/dL (7-18); BUN/Creat Ratio 13.9 RATIO (10-20); Chloride 107 mmol/L (98-107); Creatinine, Serum 0.79 mg/dL (0.55-1.02); EST Glomerular Filtration Rate 79 mL/min (>60); Est Glom Filt Rate - Afr Amer 96 mL/min (>60); Estimated Creatinine Clearance 72.21 ml/min; Glucose 121 mg/dL (74-106); Potassium 3.5 mmol/L (3.5-5.1); Sodium Level 138 mmol/L (136-145)
--- NOTE | 2024-02-16 11:09 | PCM.HP.STD ---
HPI - General General Date of Admission: 02/16/24 HPI Narrative LILI VIEIRA, is a 58 F who presents with increasing shortness of breath and cough since Thursday. Has been noted that she will appear to be having hallucinations yesterday and thinks it was due to hypoxia as she was 86% on room air at home. She denies any sick contacts does not have any significant sputum production. Denies any weight gain or lower extremity edema. Denies any orthopnea. No fevers or chills though she states that she gets pneumonia about once every 1 to 2 years and states that this is similar to her previous episodes of pneumonia. No leukocytosis on admission, and COVID, flu, and RSV PCR is negative. Chest x-ray demonstrated bilateral patchy airspace disease could be due to bilateral pulmonary infiltrates versus CHF however BNP was 14. [facility] Medical History Diabetes type 2, controlled BEAU (obstructive sleep apnea) Bronchitis Hiatal hernia Depression Chronic UTI Cervical herniated disc History of bronchitis Back pain Migraine headache Fibromyalgia Chronic pain disorder Hypothyroid Rheumatoid arthritis Home Medications ?Medication ?Instructions ?Recorded ?Last Taken ?Type sumatriptan succinate 100 mg 100 mg PO .X1 PRN 01/02/18 07/12/18 History tablet (Imitrex) zolpidem 10 mg tablet (Ambien) 10 mg PO QHS 01/02/18 07/13/18 History duloxetine 60 mg capsule,delayed 60 mg PO BID 07/14/18 07/14/18 History release esomeprazole magnesium 40 mg 40 mg PO DAILY ACID REFLEX 07/14/18 07/14/18 History capsule,delayed release (Nexium) levothyroxine 200 mcg tablet 200 mcg PO DAILY THYROID 07/14/18 07/14/18 History (Synthroid) albuterol sulfate 90 mcg/actuation 2 puff inhalation Q4H PRN 11/13/22 Unknown Rx aerosol inhaler shortness of breath or wheezing #8.5 grams Nebulizer machine #1 ea 12/19/22 Unknown Rx albuterol sulfate 2.5 mg/3 mL 2.5 mg inhalation Q2H PRN Wheezing 02/16/24 Unknown History (0.083 %) solution for nebulization amitriptyline 75 mg tablet 75 mg PO QHS 02/16/24 Unknown History fluticasone furoate 200 1 ea inhalation DAILY 02/16/24 Unknown History mcg-vilanterol 25 mcg/dose inhalation powder lamotrigine 25 mg tablet See Rx Instructions PO .COMPLEX 02/16/24 Unknown History nicotine 14 mg/24 hr daily 1 patch topical DAILY 02/16/24 Unknown History transdermal patch tizanidine 4 mg capsule 4 mg PO TID PRN PRN muscle spasm 02/16/24 Unknown History topiramate 100 mg tablet 100 mg PO BID 02/16/24 Unknown History Allergy/AdvReac Type Severity Reaction Status Date / Time hydrocodone bitartrate (From Allergy Itching Verified 02/16/24 09:04 Vicodin) ibuprofen Allergy Other Verified 02/16/24 09:04 Family History Mother Asthma Depression Myocardial infarction Heart disease Father Heart disease Myocardial infarction Hypertension Sister Hepatitis Surgical History History of knee surgery Hx of shoulder surgery History of bilateral breast reduction surgery H/O repair of rotator cuff H/O thyroidectomy H/O discectomy History of carpal tunnel release History of bunionectomy H/O gastric bypass Social History household members: none Smoking Status: Current every day smoker tobacco type: cigarettes second hand exposure: Yes alcohol intake: never substance use type: does not use ROS Constitutional Constitutional: Denies chills, fatigue, fever(s) or malaise Eyes Eyes: Denies blurry vision ENT HEENT: Denies headache(s) or nasal discharge Cardiovascular Cardiovascular: Denies chest pain, dyspnea on exertion or syncope Respiratory/Chest Respiratory/Chest: Reports cough, shortness of breath at rest, shortness of breath with exertion and wheezing Gastrointestinal Gastrointestinal: Denies constipation, diarrhea, nausea or vomiting Genitourinary Genitourinary: Denies dysuria Neurologic Neurologic: Denies focal weakness, numbness or tremor(s) Psychiatric Psychiatric: Denies anxiety or depression Vital Signs Vital Signs Vital Signs: 02/16/24 09:03 02/16/24 09:41 02/16/24 09:57 Temperature 99 F Temperature Source Temporal Pulse Rate 98 88 Respiratory Rate 14 16 Respiratory Effort Respiratory Depth Respiratory Pattern Blood Pressure 110/74 Blood Pressure Mean 86 Pulse Ox 92 91 Oxygen Delivery Method Room Air Simple Mask 02/16/24 09:57 02/16/24 10:19 02/16/24 11:06 Temperature 98.7 F 97.6 F L Temperature Source Temporal Pulse Rate 84 84 Respiratory Rate 21 H 27 H Respiratory Effort Short of Breath Respiratory Depth Normal Respiratory Pattern Normal Blood Pressure 147/84 H 155/94 H Blood Pressure Mean 105 114 Pulse Ox 92 91 Oxygen Delivery Method Room Air Room Air Weight Weight: 155 lb 3.287 oz Body Mass Index (BMI) 28.3 Physical Exam Narrative General: Alert, Oriented x3, Cooperative, No apparent distress HEENT: Atraumatic, PERRLA, EOMI, Normocephalic Oral: Moist Mucosa Neck: Supple, No JVD Lungs: Diminished, Normal air movement, No rhonchi, inspiratory and expiratory wheeze, No rales Cardiovascular: Regular rate, Regular Rhythm, Normal S1, Normal S2, No murmurs Abdomen: Soft, Non Tender, Non-Distended, No Hepato-splenomegaly Extremities: No edema, Capillary Refill Less than 3 Seconds Skin: No rashes, No breakdown Musculoskeletal: No Tenderness to Palpation of Joints or Extremities Neurological: No focal neurological deficits, Motor Exam 5/5 strength throughout, Sensory exam intact to light touch and pain Psych/Mental Status: Normal Affect, Appropriate Results Lab / Micro Data 02/16/24 09:50 02/16/24 09:50 Labs: Laboratory Results - last 24 hr 02/16/24 09:50: WBC 8.9, RBC 3.84 L, Hgb 12.3, Hct 38.0, MCV 99.0, MCH 32.0, MCHC 32.4, RDW Std Deviation 47.0 H, RDW Coeff of Twin 13.1, Plt Count 339, MPV 9.4, Immature Gran % (Auto) 1.000 H, Neut % (Auto) 78.9 H, Lymph % (Auto) 14.1 L, [place] % (Auto) 3.9, Eos % (Auto) 1.5, Baso % (Auto) 0.6, Absolute Neuts (auto) 7.0, Absolute Lymphs (auto) 1.26, Nucleated RBC % 0, Sodium 138, Potassium 3.5, Chloride 107, Carbon Dioxide 23.0, Anion Gap 8, BUN 11, Creatinine 0.79, Estim Creat Clear Calc 72.21, Est GFR (MDRD) Af Amer 96, Est GFR (MDRD) Non-Af 79, BUN/Creatinine Ratio 13.9, Glucose 121 H, Calcium 9.0 Micro: Microbiology 02/16/24 09:40 Mucosa - Nose SARS-CoV-2, Influenza & RSV (PCR) - Final Rhythm Strip Rhythm Strip: Sinus Rhythm Rate: 88 Ectopy: None Imaging Radiology Impression Chest X-Ray 02/16/24 10:00 IMPRESSION: Bilateral patchy airspace disease worse in the left hemithorax. This may represent either CHF or bilateral pulmonary infiltrates. Follow-up recommended. Electronically Signed: Philipp Gupta MD at 10:14 EDT , Assessment & Plan Assessment/Plan (1) Bilateral pneumonia: (2) Hypoxia: PLAN: Plan 1. Bilateral pneumonia with hypoxia/tobacco abuse ? Legionella and strep antigen are pending ? COVID, flu, RSV negative ? BNP is 14 so heart failure is highly unlikely, denies any orthopnea ? Will continue with steroids as she is a smoker, PFTs from 10/14/2022 demonstrated grossly normal pulmonary function test with a volume loop suggestive of possible fixed airway obstruction ? Will continue with her home inhalers as well as Rocephin and azithromycin ? Sputum cultures pending ? Discussed tobacco cessation, continue with nicotine patch 2. Hypothyroidism ? Stable ? Continue with Synthroid ? Her last TSH in our system was in 2018 and was 0.02, will repeat TSH this admission 3. Anxiety/depression ? Stable ? Continue with her home medications 4. GERD ? Stable ? Continue with PPI DVT: Lovenox 75 minutes was spent on direct patient care, including documentation as well as chart review and collaboration with colleagues Charges/Coding Visit Charges Inpatient E&M: 62997 Init Hosp L3
--- NOTE | 2024-02-16 11:20 | NURSING ---
MED SURG LISA BILATERAL MULTILOBE PNEUMONIA, HYPOXIA
[2024-02-16] MEDS: Ceftriaxone 1 GM/50 ML BAG IV (11:27)
[2024-02-16 11:43] LABS: BNP,B-Type NATRIURETIC PEPTIDE 14.7 pg/mL (0-100)
[2024-02-16] MEDS: Azithromycin 500 MG in Dextrose 5%-Water (250mL Bag) 250 ML 250 MG IV (18:18)
[2024-02-16] MEDS: Budesonide Respules 0.5 MG/2 ML AMPUL.NEB. INHALATION (19:30)
[2024-02-16] MEDS: Amitriptyline 25 MG Tablet 75 MG PO (20:47)
[2024-02-16] MEDS: tiZANidine HCl 2 MG Tablet 4 MG PO (20:47)
[2024-02-16] MEDS: DULoxetine Hcl 60 MG Capsule PO (20:47)
[2024-02-16] MEDS: Zolpidem Tartrate 5 MG Tablet 10 MG PO (20:47)
[2024-02-16] MEDS: Topiramate 100 MG Tablet PO (20:47)
[2024-02-16] MEDS: Pantoprazole Sodium 40 MG Tablet PO (20:47)
[2024-02-17] VITALS (7 sets, daily range): BP systolic 121–134; BP diastolic 79–91; PULSE 71–92; RESP 14–20; TEMP 36.5–36.7; O2SAT 90–96
[2024-02-17] MEDS: Levothyroxine 100 MCG Tablet 200 MCG PO (06:02)
[2024-02-17 07:34] LABS: Absolute Lymphocyte Count 2.13 X10^3/uL (0.83-4.51); Absolute Neutrophil Count 5.9 X10^3/uL (2.0-7.7); Basophil# 0.05 X10^3/uL; Basophil% 0.6 % (0-1); Eosinophil# 0.04 X10^3/uL; Eosinophils% 0.5 % (0-5); Hemoglobin 12.2 g/dL (12.0-15.0); Lymphocyte # 2.13 X10^3/ul (0.83-4.51); Lymphocyte % 24.2 % (19-41); Mean Corpuscular Hgb 32.4 pg (27.0-32.0); Mean Corpuscular Volume 98.4 fL (81-99); Mean Platelet Vol. 9.4 fl (6.2-12.0); Monocyte# 0.59 X10^3/uL; Monocyte% 6.7 % (0-10); NRBC Flagged by Analyzer 0 % (0-5); Neutrophil # 5.85 X10^3/uL (2.7-7.7); Neutrophil % 66.3 % (47-70); Platelet Count 345 K/mm3 (150-450); RBC Distribution Width SD 46.8 fl (35.1-43.9); Red Blood Count 3.76 M/mm3 (4.2-5.4); White Blood Count 8.8 K/mm3 (4.4-11.0)
[2024-02-17] MEDS: Albuterol 2.5 MG/3 ML VIAL.NEB. INHALATION ×3 (07:50→19:30)
[2024-02-17] MEDS: Budesonide Respules 0.5 MG/2 ML AMPUL.NEB. INHALATION ×2 (07:50→19:30)
[2024-02-17 08:00] LABS: Anion Gap 4 (5-15); BUN 9 mg/dL (7-18); BUN/Creat Ratio 12.4 RATIO (10-20); Chloride 109 mmol/L (98-107); Creatinine, Serum 0.73 mg/dL (0.55-1.02); EST Glomerular Filtration Rate 87 mL/min (>60); Est Glom Filt Rate - Afr Amer 106 mL/min (>60); Estimated Creatinine Clearance 78.63 ml/min; Glucose 98 mg/dL (74-106); Potassium 3.4 mmol/L (3.5-5.1); Sodium Level 136 mmol/L (136-145)
[2024-02-17] MEDS: lamoTRIgine 25 MG Tablet 50 MG PO ×2 (08:47→20:34)
[2024-02-17] MEDS: Topiramate 100 MG Tablet PO ×2 (08:47→20:35)
[2024-02-17] MEDS: predniSONE 20 MG Tablet 40 MG PO (08:47)
[2024-02-17] MEDS: DULoxetine Hcl 60 MG Capsule PO ×2 (08:47→20:35)
[2024-02-17] MEDS: Enoxaparin 40 MG/0.4 ML Syringe SC (08:47)
[2024-02-17] MEDS: tiZANidine HCl 2 MG Tablet 4 MG PO (08:53)
[2024-02-17] MEDS: Pantoprazole Sodium 40 MG Tablet PO (08:53)
[2024-02-17] MEDS: 0.9% Saline Lock 10 ML Syringe IV (08:59)
[2024-02-17] MEDS: Ceftriaxone 1 GM/50 ML BAG IV (08:59)
--- NOTE | 2024-02-17 09:28 | PN.HOSP_ITS ---
Subjective Subjective Remains about the same, still nonproductive cough Objective Data Objective Data Vital Signs: Vital Signs Temp Pulse Resp BP Pulse Ox O2 Del Method O2 Flow Rate 98.1 F 85 14 122/84 H 93 Nasal Cannula 2 02/17/24 09:00 02/17/24 09:00 02/17/24 09:00 02/17/24 09:00 02/17/24 09:00 02/17/24 09:00 02/17/24 09:00 Oxygen Flow Rate (L/min) 2 Oxygen Delivery Method Nasal Cannula Weight: 157 lb 3.033 oz Body Mass Index (BMI) 28.7 Intake & Output: Intake and Output for Last 24 Hours 02/16/24 02/17/24 02/18/24 03:59 03:59 03:59 Intake Total 1555 / 1555 Balance 1555 / 1555 Lab / Micro Data 02/17/24 06:50 02/17/24 06:50 Labs: Laboratory Results - last 24 hr 02/16/24 09:50: WBC 8.9, RBC 3.84 L, Hgb 12.3, Hct 38.0, MCV 99.0, MCH 32.0, MCHC 32.4, RDW Std Deviation 47.0 H, RDW Coeff of Twin 13.1, Plt Count 339, MPV 9.4, Immature Gran % (Auto) 1.000 H, Neut % (Auto) 78.9 H, Lymph % (Auto) 14.1 L , [place] % (Auto) 3.9, Eos % (Auto) 1.5, Baso % (Auto) 0.6, Absolute Neuts (auto) 7.0, Absolute Lymphs (auto) 1.26, Nucleated RBC % 0, Sodium 138, Potassium 3.5, Chloride 107, Carbon Dioxide 23.0, Anion Gap 8, BUN 11, Creatinine 0.79, Estim Creat Clear Calc 72.21, Est GFR (MDRD) Af Amer 96, Est GFR (MDRD) Non-Af 79, BUN/Creatinine Ratio 13.9, Glucose 121 H, Calcium 9.0, B-Natriuretic Peptide 14.7, TSH 86.80 H 02/17/24 06:50: WBC 8.8, RBC 3.76 L, Hgb 12.2, Hct 37.0, MCV 98.4, MCH 32.4 H, MCHC 33.0, RDW Std Deviation 46.8 H, RDW Coeff of Twin 13.0, Plt Count 345, MPV 9.4, Immature Gran % (Auto) 1.700 H, Neut % (Auto) 66.3, Lymph % (Auto) 24.2, [place] % (Auto) 6.7, Eos % (Auto) 0.5, Baso % (Auto) 0.6, Absolute Neuts (auto) 5.9, Absolute Lymphs (auto) 2.13, Nucleated RBC % 0, Sodium 136, Potassium 3.4 L , Chloride 109 H, Carbon Dioxide 23.0, Anion Gap 4 L, BUN 9, Creatinine 0.73, Estim Creat Clear Calc 78.63, Est GFR (MDRD) Af Amer 106, Est GFR (MDRD) Non-Af 87, BUN/Creatinine Ratio 12.4, Glucose 98, Calcium 9.0 Micro: Microbiology 02/16/24 17:35 Urine, Random Legionella Antigen - Final 02/16/24 09:40 Mucosa - Nose SARS-CoV-2, Influenza & RSV (PCR) - Final Radiography Diagnostic Testing: Radiology Impression Chest X-Ray 02/16/24 10:00 IMPRESSION: Bilateral patchy airspace disease worse in the left hemithorax. This may represent either CHF or bilateral pulmonary infiltrates. Follow-up recommended. Electronically Signed: Philipp Gupta MD at 10:14 EDT , Rhythm Strip Rhythm Strip: Sinus Rhythm Rate: 88 Ectopy: None Physical Exam Narrative General: Alert, Oriented x3, Cooperative, No apparent distress HEENT: Atraumatic, PERRLA, EOMI, Normocephalic Oral: Moist Mucosa Neck: Supple, No JVD Lungs: Diminished, Normal air movement, No rhonchi, inspiratory and expiratory wheeze, No rales Cardiovascular: Regular rate, Regular Rhythm, Normal S1, Normal S2, No murmurs Abdomen: Soft, Non Tender, Non-Distended, No Hepato-splenomegaly Extremities: No edema, Capillary Refill Less than 3 Seconds Skin: No rashes, No breakdown Musculoskeletal: No Tenderness to Palpation of Joints or Extremities Neurological: No focal neurological deficits, Motor Exam 5/5 strength throughout, Sensory exam intact to light touch and pain Psych/Mental Status: Normal Affect, Appropriate Assessment & Plan Assessment/Plan (1) Bilateral pneumonia: (2) Hypoxia: PLAN: Plan 1. Bilateral pneumonia with hypoxia/tobacco abuse ? Legionella and strep antigen are negative ? COVID, flu, RSV negative ? BNP is 14 so heart failure is highly unlikely, denies any orthopnea ? Will continue with steroids as she is a smoker, PFTs from 10/14/2022 demonstrated grossly normal pulmonary function test with a volume loop suggestive of possible fixed airway obstruction ? Will continue with her home inhalers as well as Rocephin and azithromycin ? Sputum cultures pending ? Discussed tobacco cessation, continue with nicotine patch 2. Hypothyroidism ? Stable ? Continue with Synthroid ? Her last TSH in our system was in 2018 and was 0.02, will repeat TSH this admission 3. Anxiety/depression ? Stable ? Continue with her home medications 4. GERD ? Stable ? Continue with PPI DVT: [place] Charges/Coding Visit Charges Inpatient E&M: 44518 Subs Hosp L2
[2024-02-17 10:08] LABS: Free T3 < 0.5 pg/mL (2.18-3.98); T4 Free Direct 0.42 ng/dL (0.76-1.46)
[2024-02-17] MEDS: Potassium Chloride Oral Tablet 20 MEQ 40 MEQ PO (10:58)
[2024-02-17] MEDS: Azithromycin 500 MG in Dextrose 5%-Water (250mL Bag) 250 ML 250 MG IV (10:58)
--- NOTE | 2024-02-17 11:41 | CASEMGMT ---
RACHEL JUAN Assessment Face to Face with patient for initial transition planning/care coordination assessment. RACHEL JUAN introduced self and role at [facility], pt voices understanding. Pt is A&Ox4 and is resting comfortably in bed and is calm. Care providers, pharmacy, and demographics verified. Admitting dx: Pneumonia with Hypoxia PCP: Mark Gomez Specialists: [facility] in [place] Preferred Pharmacy: [facility] Insurance: [employer], [employer] Prescription Benefit: Yes LNOK: Aaron Mantilla (H) Living Arrangements: Pt lives with her in a single story home with 1 step to enter ADLs/IADLs: Ind Transportation: Self, DME: [employer]. Pt states that she has a BGM but is low on supplies. MS RACHEL JUAN updated and to provide Rx for supplies. Pt was recently requiring additional oxygen. A verbal list of local in-network DME companies provided to the pt at this time. Pt prefers [facility] if she qualifies for home oxygen. HHC/SNF: Denies history or needs Pt?s goal: Home Plan: Home with BGM supplies and potential oxygen. Pt denies other needs. 6 Click is 24. CM to follow. Dianna Chou RN, CM
[2024-02-17] MEDS: Buprenorphine 10 MCG PATCH.TDWK 1 PATCH TD (13:26)
[2024-02-17] MEDS: Buprenorphine 5 MCG PATCH.TDWK 1 PATCH TD (13:27)
--- NOTE | 2024-02-17 14:59 | CASEMGMT ---
RACHEL JUAN NOTE: Per Honorio, RAHCEL JUAN, pt has a BGM, but is out of glucometer strips. RACHEL JUAN to room to talk w/pt. Introduced self and role. Per pt she has been out of strips for approx 6 months. She states she has purchased 2 BGM's OTC, as she was not ordered by physician to check them, she just wanted to keep an eye on them. She states they do run low sometimes, in the 40's and 50's. She states she has told her PCP and he wanted her to keep track of the results for a week and update him on the results, but she has not done that yet, as she has not had any strips. She does not remember brands of glucometer and is out of strips for both. She thinks she purchased one from [employer] and one from [employer], but not positive. She states when she has went in to purchase more strips, they were out of them. She plans to talk w/her this PM to have him find brand of glucometers and RACHEL JUAN to f/u Aydee re: if strips are available to purchase. Or, pt may possibly be interested in getting script for new glucometer and supplies. RACHEL JUAN to f/u Aydee. Rupa CHA RN, CM
[2024-02-17 17:20] LABS: Bedside Glucose 119 mg/dL (74-106)
--- NOTE | 2024-02-17 18:30 | NURSING ---
PT TOLD SHE NEEDS TO GET UP IN THE CHAIR FOR AWHILE, PT REPORTS THAT SHE WAS ALREADY UP FOR ABOUT AND HOUR. FERCHO, [employer] REPORTED THAT PT DID NOT WANT TO GET UP IN CHAIR FOR SUPPER BECAUSE SHE SAID SHE WAS ALREADY UP
[2024-02-17] MEDS: Amitriptyline 25 MG Tablet 75 MG PO (20:34)
[2024-02-17] MEDS: Zolpidem Tartrate 5 MG Tablet 10 MG PO (20:36)
[2024-02-18 02:00] VITALS: BP 121/80; PULSE 72; RESP 16; TEMP 36.6; O2SAT 96
[2024-02-18] MEDS: Levothyroxine 100 MCG Tablet 200 MCG PO (06:43)
[2024-02-18 07:45] VITALS: PULSE 85; RESP 18; O2SAT 93
[2024-02-18] MEDS: Albuterol 2.5 MG/3 ML VIAL.NEB. INHALATION (07:45)
[2024-02-18] MEDS: Budesonide Respules 0.5 MG/2 ML AMPUL.NEB. INHALATION (07:46)
[2024-02-18 08:00] VITALS: BP 122/76; PULSE 84; RESP 16; TEMP 37; O2SAT 91
[2024-02-18] MEDS: Enoxaparin 40 MG/0.4 ML Syringe SC (08:18)
[2024-02-18] MEDS: predniSONE 20 MG Tablet 40 MG PO (08:18)
[2024-02-18] MEDS: DULoxetine Hcl 60 MG Capsule PO (08:18)
[2024-02-18] MEDS: Pantoprazole Sodium 40 MG Tablet PO (08:19)
[2024-02-18] MEDS: Topiramate 100 MG Tablet PO (08:19)
[2024-02-18] MEDS: lamoTRIgine 25 MG Tablet 50 MG PO (08:19)
[2024-02-18] MEDS: 0.9% Saline Lock 10 ML Syringe IV (08:28)
[2024-02-18] MEDS: Ceftriaxone 1 GM/50 ML BAG IV (08:28)
[2024-02-18] MEDS: Rizatriptan Benzoate 10 MG Tablet PO (09:13)
[2024-02-18] MEDS: Azithromycin 500 MG in Dextrose 5%-Water (250mL Bag) 250 ML 250 MG IV (09:15)
[2024-02-18 09:31] VITALS: O2SAT 100; O2SAT 95
--- NOTE | 2024-02-18 11:14 | DCINST_ITS ---
Discharge Instructions Diet Discharge Diet: No restrictions Activity Discharge Activity: Return to Normal Activity Dressing / Incision Call your doctor if you observe: Fever of 101 or Higher, Shortness of breath, Dizziness, Fainting spells, Swelling in the ankles, Chest pain and Increased palpitations (irregular heartbeat) Follow Up Care Test Results: Test results from this visit will be discussed in further detail at your follow- up appointment, if applicable. Discharge Plan Admission Admit Date/Time: 02/16/24 11:12 Attending Provider: Tera Jenkins Primary Care Provider: Mark Gomez Instructions Additional Instructions / Restrictions: Remember to take your Synthroid and to follow-up with your PCP to monitor your TSH as hypothyroidism can be lethal. As discussed I did tell on you to your and he has promised to keep an eye on you and to annoyingly remind you to take your Synthroid Discharge Orders/Prescriptions Prescriptions: New prednisone 20 mg Tablet 40 mg PO BREAKFAST 7 Days Qty: 14 0RF cefdinir 300 mg capsule 300 mg PO BID 5 Days Qty: 10 0RF azithromycin 500 mg tablet 500 mg PO DAILY 3 Days Qty: 3 0RF Continued albuterol sulfate 90 mcg/actuation HFA aerosol inhaler 2 puff inhalation Q4H PRN (Reason: shortness of breath or wheezing) Qty: 8.5 6RF Rx Instructions: administer with spacer sumatriptan succinate [Imitrex] 100 MG tablet 100 mg PO .X1 PRN zolpidem [Ambien] 10 MG tablet 10 mg PO QHS esomeprazole magnesium [Nexium] 40 MG capsule 40 mg PO DAILY levothyroxine [Synthroid] 200 MCG tablet 200 mcg PO DAILY duloxetine 60 MG capsule,delayed release(DR/EC) 60 mg PO BID lamotrigine 25 mg tablet See Rx Instructions PO .COMPLEX Patient Comments: PT UNAWARE OF HOW MED IS TAKEN, RX WAS PICKED UP ON 02/06/24, NOT SURE WHERE IN THE TITRATION PT IS. Rx Instructions: TAKE 1 TABLET EVERY NIGHT FOR 3 DAYS, THEN INCREASE TO 1 TABLET TWICE DAILY FOR 3 DAYS, THEN INCREASE TO 1 TABLET IN THE MORNING AND 2 IN THE EVENING FOR 3 DAYS, THEN INCREASE TO 2 TABLETS TWICE DAILY THEREAFTER. orally; nicotine 14 mg/24 hr patch 24 hour 1 patch topical DAILY Patient Comments: pt just picked up rx, hasnt started yet albuterol sulfate 2.5 mg /3 mL (0.083 %) solution for nebulization 2.5 mg inhalation Q2H PRN (Reason: Wheezing) amitriptyline 75 mg tablet 75 mg PO QHS topiramate 100 mg tablet 100 mg PO BID tizanidine 4 mg capsule 4 mg PO TID PRN PRN (Reason: muscle spasm) fluticasone furoate-vilanterol 200-25 mcg/dose blister with device 1 ea INHALATION DAILY buprenorphine 15 mcg/hour patch weekly 1 patch transdermal QWEEK (DME) Nebulizer machine See Rx Instructions .ROUTE .MEDSULY Qty: 1 0RF Rx Instructions: As directed Referrals / Follow Up: Mark Gomez DO [Primary Care Provider] - Within 1 Month Disposition Disposition (needs filled in before D/C Order can be placed): Home, Self Care
--- NOTE | 2024-02-18 11:38 | CASEMGMT ---
RN CM into pt room, pt lying in bed in no distress. Discussed homegoing DC plan, pt denies any needs at this time. Asked pt if she has supplies for glucometer, pt states she is following up with PCP and will get supplies through them. Provided pt education about the importance of checking BS regularly. Pt verbalized understanding.
--- NOTE | 2024-02-18 14:22 | PCM.DC.SUM ---
Providers Date of Admission: 02/16/24 Primary Care Physician: Dr. Mark Gomez DO Reason For Visit: PNEUMONIA WITH HYPOXIA Diagnosis Discharge Diagnosis (1) Bilateral pneumonia: Status: Acute Code(s): J18.9 - Pneumonia, unspecified organism (2) Hypoxia: Status: Acute Code(s): R09.02 - Hypoxemia Medications at Discharge Home Medications sumatriptan succinate 100 mg tablet (Imitrex) 100 mg PO .X1 PRN 01/02/18 zolpidem 10 mg tablet (Ambien) 10 mg PO QHS 01/02/18 duloxetine 60 mg capsule,delayed release 60 mg PO BID 07/14/18 esomeprazole magnesium 40 mg capsule,delayed release (Nexium) 40 mg PO DAILY ACID REFLEX 07/14/18 levothyroxine 200 mcg tablet (Synthroid) 200 mcg PO DAILY THYROID 07/14/18 albuterol sulfate 90 mcg/actuation aerosol inhaler 2 puff inhalation Q4H PRN shortness of breath or wheezing #8.5 grams 11/13/22 Nebulizer machine #1 ea 12/19/22 albuterol sulfate 2.5 mg/3 mL (0.083 %) solution for nebulization 2.5 mg inhalation Q2H PRN Wheezing 02/16/24 amitriptyline 75 mg tablet 75 mg PO QHS 02/16/24 fluticasone furoate 200 mcg-vilanterol 25 mcg/dose inhalation powder 1 ea inhalation DAILY 02/16/24 lamotrigine 25 mg tablet See Rx Instructions PO .COMPLEX 02/16/24 nicotine 14 mg/24 hr daily transdermal patch 1 patch topical DAILY 02/16/24 tizanidine 4 mg capsule 4 mg PO TID PRN PRN muscle spasm 02/16/24 topiramate 100 mg tablet 100 mg PO BID 02/16/24 buprenorphine 15 mcg/hour weekly transdermal patch 1 patch transdermal QWEEK pain 02/17/24 azithromycin 500 mg tablet 500 mg PO DAILY 3 days #3 tabs 02/18/24 cefdinir 300 mg capsule 300 mg PO BID 5 days #10 caps 02/18/24 prednisone 20 mg tablet 40 mg (2 x 20 mg) PO BREAKFAST 7 days #14 tabs 02/18/24 Hospital Course Operations None Procedures None Summary of Care Provided Minutes Spent on Discharge: 39 Hospital Course: Per HPI: LILI VIEIRA, is a 58 F who presents with increasing shortness of breath and cough since Thursday. Has been noted that she will appear to be having hallucinations yesterday and thinks it was due to hypoxia as she was 86% on room air at home. She denies any sick contacts does not have any significant sputum production. Denies any weight gain or lower extremity edema. Denies any orthopnea. No fevers or chills though she states that she gets pneumonia about once every 1 to 2 years and states that this is similar to her previous episodes of pneumonia. No leukocytosis on admission, and COVID, flu, and RSV PCR is negative. Chest x-ray demonstrated bilateral patchy airspace disease could be due to bilateral pulmonary infiltrates versus CHF however BNP was 14. Hospital Course: 1. Bilateral pneumonia with hypoxia/tobacco abuse?58-year-old female presents to the hospital with increasing shortness of breath and cough since Thursday. Cough is nonproductive however we were able to get a sample prior to discharge though it is not complete. She did have significant improvement with oral steroids as well as antibiotics. She did have an ambulatory pulse ox that did not demonstrate a need for oxygen with ambulation. I discussed with her the possibility of discharge today she expressed understanding the risk benefits of going home and would like to go home today. During her admission COVID, flu, RSV were negative as were Legionella and strep antigens. BNP was normal so heart failure was not likely. She does have a history of breathing problems and had seen pulmonology as an outpatient and had PFTs done a little over a year ago which demonstrated grossly normal pulmonary function with possible fixed airway obstruction. Will continue with her home inhalers as well as prednisone for a week on discharge. 2. Severe hypothyroidism status post thyroidectomy?she states that she takes her Synthroid only when she feels like she needs it, TSH during this admission was 86 and both T3 and T4 were extremely low. I discussed with her the severity of her issue and that she will need to consistently take Synthroid until her TSH is normalized. Of note in 2018 she did have a TSH of 0.02 so she may need to have multiple different dosing regimens in order to keep her thyroid hormone stable. I discussed the severity of her hypothyroidism with her as well and she has an outpatient follow-up appointment in about 3 weeks with her PCP. In the meantime we will continue with her Synthroid 200 mcg daily. 3. Anxiety, depression, GERD are chronic medical conditions which complicate her care. Her home medications were continued where appropriate Physical Exam Narrative General: Alert, Oriented x3, Cooperative, No apparent distress HEENT: Atraumatic, PERRLA, EOMI, Normocephalic Oral: Moist Mucosa Neck: Supple, No JVD Lungs: Diminished, Normal air movement, No rhonchi, no wheeze, No rales Cardiovascular: Regular rate, Regular Rhythm, Normal S1, Normal S2, No murmurs Abdomen: Soft, Non Tender, Non-Distended, No Hepato-splenomegaly Extremities: No edema, Capillary Refill Less than 3 Seconds Skin: No rashes, No breakdown Musculoskeletal: No Tenderness to Palpation of Joints or Extremities Neurological: No focal neurological deficits, Motor Exam 5/5 strength throughout, Sensory exam intact to light touch and pain Psych/Mental Status: Normal Affect, Appropriate Weight / BMI Weight Weight: 157 lb 3.033 oz Body Mass Index (BMI) 28.7 ABG / Lab / Microbiology Data 02/17/24 06:50 02/17/24 06:50 Laboratory: Laboratory Results - last 24 hr 02/17/24 16:17: POC Glucose 119 H Microbiology: Microbiology 02/17/24 11:08 Sputum, Expectorated/Coughed Gram Stain - Final 02/17/24 11:08 Sputum, Expectorated/Coughed Respiratory Culture - Preliminary GNR lactose wound care coordinator Presumptive C albicans 02/16/24 17:35 Urine, Random Legionella Antigen - Final 02/16/24 09:40 Mucosa - Nose SARS-CoV-2, Influenza & RSV (PCR) - Final D/C Instructions Discharge Diet: No restrictions Call your doctor if you observe: Fever of 101 or Higher, Shortness of breath, Dizziness, Fainting spells, Swelling in the ankles, Chest pain and Increased palpitations (irregular heartbeat) Meaningful Use Info Meaningful Use Meaningful Use Diagnoses (Choose all that apply): None applicable Ischemic Stroke Statin Dosing Therapy Reference: STATIN DOSE THERAPY REFERENCE: * Patients > 75 years receive moderate or high dose statin therapy. * Patients 75 years or YOUNGER should receive HIGH intensity statin dose unless contraindicated. You will be required to document reason for non-treatment if statin daily dose does not meet guidelines. HIGH DOSE STATIN THERAPY DAILY Atorvastatin > than or = to 40 mg Rosuvastatin > than or = to 20 mg Amlodipine + Atorvastatin > than or = to 2.5/40 mg Ezetimibe + Simvastatin 10/80 mg Simvastatin 80mg Discharge Plan Admission Admit Date/Time: 02/16/24 11:12 Attending Provider: Tera Jenkins Primary Care Provider: Mark Gomez Instructions Additional Instructions / Restrictions: Remember to take your Synthroid and to follow-up with your PCP to monitor your TSH as hypothyroidism can be lethal. As discussed I did tell on you to your and he has promised to keep an eye on you and to annoyingly remind you to take your Synthroid Discharge Orders/Prescriptions Prescriptions: New prednisone 20 mg Tablet 40 mg PO BREAKFAST 7 Days Qty: 14 0RF cefdinir 300 mg capsule 300 mg PO BID 5 Days Qty: 10 0RF azithromycin 500 mg tablet 500 mg PO DAILY 3 Days Qty: 3 0RF Continued albuterol sulfate 90 mcg/actuation HFA aerosol inhaler 2 puff inhalation Q4H PRN (Reason: shortness of breath or wheezing) Qty: 8.5 6RF Rx Instructions: administer with spacer sumatriptan succinate [Imitrex] 100 MG tablet 100 mg PO .X1 PRN zolpidem [Ambien] 10 MG tablet 10 mg PO QHS esomeprazole magnesium [Nexium] 40 MG capsule 40 mg PO DAILY levothyroxine [Synthroid] 200 MCG tablet 200 mcg PO DAILY duloxetine 60 MG capsule,delayed release(DR/EC) 60 mg PO BID lamotrigine 25 mg tablet See Rx Instructions PO .COMPLEX Patient Comments: PT UNAWARE OF HOW MED IS TAKEN, RX WAS PICKED UP ON 02/06/24, NOT SURE WHERE IN THE TITRATION PT IS. Rx Instructions: TAKE 1 TABLET EVERY NIGHT FOR 3 DAYS, THEN INCREASE TO 1 TABLET TWICE DAILY FOR 3 DAYS, THEN INCREASE TO 1 TABLET IN THE MORNING AND 2 IN THE EVENING FOR 3 DAYS, THEN INCREASE TO 2 TABLETS TWICE DAILY THEREAFTER. orally; nicotine 14 mg/24 hr patch 24 hour 1 patch topical DAILY Patient Comments: pt just picked up rx, hasnt started yet albuterol sulfate 2.5 mg /3 mL (0.083 %) solution for nebulization 2.5 mg inhalation Q2H PRN (Reason: Wheezing) amitriptyline 75 mg tablet 75 mg PO QHS topiramate 100 mg tablet 100 mg PO BID tizanidine 4 mg capsule 4 mg PO TID PRN PRN (Reason: muscle spasm) fluticasone furoate-vilanterol 200-25 mcg/dose blister with device 1 ea INHALATION DAILY buprenorphine 15 mcg/hour patch weekly 1 patch transdermal QWEEK (DME) Nebulizer machine See Rx Instructions .ROUTE .MEDSUPPLY Qty: 1 0RF Rx Instructions: As directed Referrals / Follow Up: Mark Gomez DO [Primary Care Provider] - Within 1 Month Disposition Disposition (needs filled in before D/C Order can be placed): Home, Self Care Charges/Coding Visit Charges Inpatient E&M: 29793 Disch Hosp >30min
== END 2024-02-18 11:58 | disposition home or self-care (01) | DRG 195 ==
LOC: ED 11:11 → MS3 11:21
PROVIDERS: Admitting Provider Family Medicine; Emergency Provider Emergency Medicine; PCP Student in an Organized Health Care Education/Training Program; Visit Provider Family Medicine
DX: J18.9 Pneumonia, unspecified organism (principal); E11.9 Type 2 diabetes mellitus without complications; F32.A Depression, unspecified; E89.0 Postprocedural hypothyroidism; K21.9 Gastro-esophageal reflux disease without esophagitis; F17.200 Nicotine dependence, unspecified, uncomplicated; M79.7 Fibromyalgia; G43.909 Migraine, unspecified, not intractable, without status migrainosus; F41.9 Anxiety disorder, unspecified; R09.02 Hypoxemia
CPT/HCPCS: 71045; 80048; 82962; 83880; 84439; 84443; 84481; 85025; 87070; 87077; 87186; 87205; 87449; 87631; 93005; 94640; 94668; 97802; 99285; 99406; A4216

== ENCOUNTER → 2024-05-20 | Outpatient (CLI) | payer MEDICARE, OTHER, SELFPAY ==
[2024-05-20 17:49] LABS: Mucous, Urine 0 SEEN /hpf (<or=2+); Red Blood Cells-Urine 0 SEEN /hpf (0-5); Squamous Epithelial Cells - UA 0 SEEN /hpf (5-10)
[2024-05-20 18:01] LABS: Color, Urine Yellow (Yellow); Glucose, Dipstick Normal (Normal); Ketone-Dipstick Negative (Negative); Leukocyte Esterase-Dipstick 100 /ul (Negative); Nitrite-Dipstick Negative (Negative); Occult Blood-Urine Negative /ul (Negative); Protein-Dipstick Negative (Negative); Urine Bilirubin Dipstick Negative (Negative); Urine Clarity Clear (Clear); Urine Urobilinogen Normal (Normal)
[2024-05-20 18:37] LABS: Bacteria 1+ /hpf (None Seen); White Blood Cells 10-25 SEEN /hpf (0-5)
== END | disposition home or self-care (01) ==
LOC: LABSPEC 17:47
PROVIDERS: PCP Student in an Organized Health Care Education/Training Program; Visit Provider Physician Assistant Surgical
DX: R30.0 Dysuria (principal)
CPT/HCPCS: 81001; 87086; 87088

== ENCOUNTER → 2024-10-31 | Outpatient (CLI) | payer MEDICARE, OTHER, SELFPAY ==
--- NOTE | 2024-10-31 13:00 | MRI_ITS ---
PROCEDURE: SPINE CERVICAL (ROUTINE) REASON FOR EXAM: Neck pain TECHNIQUE: Cervical spine MRI without intravenous gadolinium-based contrast. COMPARISON: Cervical spine radiograph 12/23/2022 FINDINGS: Vertebrae: Cervical vertebral body heights are preserved. Postoperative changes C6-C7 ACDF. Bone marrow signal is unremarkable. Alignment: Cervical lordosis maintained. Grade 1 anterolisthesis of C2 on C3. Spinal Cord: Cervical spinal cord is of normal size and signal intensities. Structures at the foramen magnum are unremarkable. C2-3: No canal stenosis or neural foraminal narrowing. C3-4: Small disc osteophyte complex without canal stenosis or neural foraminal narrowing. C4-5: Small disc osteophyte complex and minimal uncinate hypertrophy, without canal stenosis or neural foraminal narrowing. C5-6: Disc osteophyte complex, uncinate hypertrophy and mild facet degenerative changes with mild canal stenosis. Mild bilateral neural foraminal narrowing. C6-7: No canal stenosis or neural foraminal narrowing. C7-T1: No canal stenosis or neural foraminal narrowing. MRI/Spine Cervical (Routine) IMPRESSION: 1. No acute findings of the cervical spine. 2. Scattered degenerative changes without high-grade canal stenosis or neural f oraminal narrowing. 3. Postoperative changes C6-C7 ACDF. Reading Location: [facility]
== END | disposition home or self-care (01) ==
LOC: MRI 14:16
PROVIDERS: PCP Student in an Organized Health Care Education/Training Program; Referring Provider Anesthesiology Pain Medicine; Visit Provider Anesthesiology Pain Medicine
DX: M54.12 Radiculopathy, cervical region (principal)
CPT/HCPCS: 72141

== ENCOUNTER 2025-01-18 12:00 | Inpatient (IN) | payer MEDICARE, OTHER, SELFPAY ==
[2025-01-18] VITALS (19 sets, daily range): BP systolic 98–132; BP diastolic 57–89; PULSE 92–105; RESP 20–33; TEMP 36.4–37.6; O2SAT 88–97; BMI 28.2; BMI 25.9
--- NOTE | 2025-01-18 12:35 | EDS_ITS ---
HPI <Dr. Joshua Manriquez, DO - Last Filed: 01/18/25 15:41> History of Present Illness Chief Complaint: Shortness of Breath PFSH <Dr. Joshua Manriquez, DO - Last Filed: 01/18/25 15:41> [facility] Medical History Diabetes type 2, controlled BEAU (obstructive sleep apnea) Bronchitis Hiatal hernia Depression Chronic UTI Cervical herniated disc History of bronchitis Back pain Migraine headache Fibromyalgia Chronic pain disorder Hypothyroid Rheumatoid arthritis Home Medications ?Medication ?Instructions ?Recorded ?Last Taken ?Type sumatriptan succinate 100 mg 100 mg PO .X1 PRN 8 07/12/18 History tablet (Imitrex) zolpidem 10 mg tablet (Ambien) 10 mg PO QHS 01/02/18 1 09/12/17 History duloxetine 60 mg capsule,delayed 60 mg PO BID 07/14/18 07/14/18 History release esomeprazole magnesium 40 mg 40 mg PO DAILY ACID REFLE X 07/14/18 07/14/18 History capsule,delayed release (Nexium) levothyroxine 200 mcg tablet 200 mcg PO DAILY THYROID 07/14/18 07/14/18 History (Synthroid) albuterol sulfate 90 mcg/actuation 2 puff inhalation Q 4H PRN 11/13/22 Unknown Rx aerosol inhaler shortness of breath or wheez ing #8.5 grams Nebulizer machine #1 ea 12/19/22 Unknown Rx albuterol sulfate 2.5 mg/3 mL 2.5 mg inhalation Q2H KS N Wheezing 02/16/24 Unknown History (0.083 %) solution for nebulization amitriptyline 75 mg tablet 75 mg PO QHS 02/16/24 Unkno wn History fluticasone furoate 200 1 ea inhalation DAILY Unknown History mcg-vilanterol 25 mcg/dose inhalation powder lamotrigine 25 mg tablet See Rx Instructions PO .COMP CHRISTINE 02/16/24 Unknown History nicotine 14 mg/24 hr daily 1 patch topical DAILY 02/15 Unknown History transdermal patch tizanidine 4 mg capsule 4 mg PO TID PRN PRN muscle s pasm 02/16/24 Unknown History topiramate 100 mg tablet 100 mg PO BID 02/16/24 Unkno wn History buprenorphine 15 mcg/hour weekly 1 patch transdermal Q WEEK pain 02/17/24 02/10/24 History transdermal patch azithromycin 500 mg tablet 500 mg PO DAILY 3 days #3 t abs 02/18/24 Unknown Rx cefdinir 300 mg capsule 300 mg PO BID 5 days #10 cap s 02/18/24 Unknown Rx prednisone 20 mg tablet 40 mg (2 x 20 mg) PO BREAKFA ST 7 02/18/24 Unknown Rx days #14 tabs Allergy/AdvReac Type Severity Reaction Status Date / Time hydrocodone bitartrate (From Allergy Itching Verified 05/20/24 14:32 Vicodin) ibuprofen Allergy Other Verified 05/20/24 14:32 Family History Mother Asthma Depression Myocardial infarction Heart disease Father Heart disease Myocardial infarction Hypertension Sister Hepatitis Surgical History History of knee surgery Hx of shoulder surgery History of bilateral breast reduction surgery H/O repair of rotator cuff H/O thyroidectomy H/O discectomy History of carpal tunnel release History of bunionectomy H/O gastric bypass Social History household members: none Smoking Status: Current every day smoker tobacco type: cigarettes second hand exposure: Yes alcohol intake: never substance use type: does not use EXAM <Dr. Joshua Manriquez, DO - Last Filed: 01/18/25 15:41> Physical Exam Const Vital Signs: 01/18/25 12:01 01/18/25 12:03 01/18/25 12:03 Temperature 97.6 F L 98.7 F Temperature Source Temporal Oral Pulse Rate 102 H 101 H Respiratory Rate 24 H 26 H Respiratory Effort Normal Respiratory Depth Normal Respiratory Pattern Normal Blood Pressure 98/62 117/57 L Blood Pressure Mean 74 77 Pulse Ox 88 94 Oxygen Delivery Method Room Air Room Air Room Air Oxygen Flow Rate (L/min) 01/18/25 13:00 01/18/25 13:22 01/18/25 14:00 Temperature 98.7 F Temperature Source Oral Pulse Rate 101 H 105 H Respiratory Rate 20 H 20 H Respiratory Effort Respiratory Depth Respiratory Pattern Blood Pressure 113/74 101/89 H Blood Pressure Mean 87 93 Pulse Ox 94 95 Oxygen Delivery Method Room Air Room Air Oxygen Flow Rate (L/min) 01/18/25 15:00 01/18/25 16:00 01/18/25 17:00 Temperature Temperature Source Pulse Rate 104 H 101 H 105 H Respiratory Rate 20 H 20 H 29 H Respiratory Effort Respiratory Depth Respiratory Pattern Blood Pressure Blood Pressure Mean Pulse Ox 92 95 96 Oxygen Delivery Method Oxygen Flow Rate (L/min) 01/18/25 17:16 01/18/25 17:30 01/18/25 17:48 Temperature Temperature Source Pulse Rate Respiratory Rate Respiratory Effort Respiratory Depth Respiratory Pattern Blood Pressure Blood Pressure Mean Pulse Ox 90 97 92 Oxygen Delivery Method Oxygen Flow Rate (L/min) 01/18/25 18:00 01/18/25 18:11 Temperature Temperature Source Pulse Rate 104 H Respiratory Rate 20 H Respiratory Effort Respiratory Depth Respiratory Pattern Blood Pressure Blood Pressure Mean Pulse Ox 89 97 Oxygen Delivery Method Nasal Cannula Oxygen Flow Rate (L/min) 2 <Dr. Basil Krishnan, DO - Last Filed: 01/18/25 19:20> Physical Exam Const Vital Signs: 01/18/25 12:01 01/18/25 12:03 01/18/25 12:03 Temperature 97.6 F L 98.7 F Temperature Source Temporal Oral Pulse Rate 102 H 101 H Respiratory Rate 24 H 26 H Respiratory Effort Normal Respiratory Depth Normal Respiratory Pattern Normal Blood Pressure 98/62 117/57 L Blood Pressure Mean 74 77 Pulse Ox 88 94 Oxygen Delivery Method Room Air Room Air Room Air Oxygen Flow Rate (L/min) 01/18/25 13:00 01/18/25 13:22 01/18/25 14:00 Temperature 98.7 F Temperature Source Oral Pulse Rate 101 H 105 H Respiratory Rate 20 H 20 H Respiratory Effort Respiratory Depth Respiratory Pattern Blood Pressure 113/74 101/89 H Blood Pressure Mean 87 93 Pulse Ox 94 95 Oxygen Delivery Method Room Air Room Air Oxygen Flow Rate (L/min) 01/18/25 15:00 01/18/25 16:00 01/18/25 17:00 Temperature Temperature Source Pulse Rate 104 H 101 H 105 H Respiratory Rate 20 H 20 H 29 H Respiratory Effort Respiratory Depth Respiratory Pattern Blood Pressure Blood Pressure Mean Pulse Ox 92 95 96 Oxygen Delivery Method Oxygen Flow Rate (L/min) 01/18/25 17:16 01/18/25 17:30 01/18/25 17:48 Temperature Temperature Source Pulse Rate Respiratory Rate Respiratory Effort Respiratory Depth Respiratory Pattern Blood Pressure Blood Pressure Mean Pulse Ox 90 97 92 Oxygen Delivery Method Oxygen Flow Rate (L/min) 01/18/25 18:00 01/18/25 18:11 Temperature Temperature Source Pulse Rate 104 H Respiratory Rate 20 H Respiratory Effort Respiratory Depth Respiratory Pattern Blood Pressure Blood Pressure Mean Pulse Ox 89 97 Oxygen Delivery Method Nasal Cannula Oxygen Flow Rate (L/min) 2 [facility] <Dr. Joshua Manriquez, DO - Last Filed: 01/18/25 15:41> [facility] Narrative Medical decision making narrative: HISTORY OF PRESENT ILLNESS: Chief complaint: Shortness of breath 59-year-old female history of BEAU, hypoxia, tobacco abuse, type 2 diabetes, fibromyalgia presenting for shortness of breath since yesterday. Notes dry cough. Cough is nonproductive yellow-green sputum. Denies hemoptysis. Denies any other PE risk factors. Denies chest pain. Denies palpitations. Denies leg swelling. Denies orthopnea proximal nocturnal dyspnea. Notes she stopped smoking yesterday. REVIEW OF SYSTEMS: Pertinent positives: Shortness of breath Pertinent negatives: As per HPI PHYSICAL EXAM: Nursing triage notes reviewed, Vital signs reviewed Constitutional: please see [facility] HENT: MMM Eyes: Pupils equal round and reactive to light, Extraocular muscles intact Neck: No stridor, no JVD, full neck ROM Lungs: Clear to auscultation, No wheezing or rales. No increased work of breathing, no conversational dyspnea, no accessory muscle use, no nasal flaring. No respiratory distress noted. Slightly prolonged r expiratory phase Heart: Regular rate and rhythm, No murmurs, No rubs and No gallops, 2+ distal pulses (radial, femoral, posterior tibial) in all extremities Abdomen: Soft, there is no tenderness, rigidity, rebound or guarding, no obvious peritoneal signs, no palpable pulsatile abdominal masses, no auscultated abdominal bruit : No CVAT Extremities: No edema Neuro: No new focal neurological deficits, cranial nerves II through XII intact, 5/5 strength in all present extremities. Intact sensation to light touch in all present extremities, 2+ reflexes bilateral patella tendons. Skin: No rash or lesions noted MEDICAL DECISION MAKING: Chief Complaint: please see [facility] External records reviewed: Reviewed prior echocardiogram from 2017 showed ejection fraction 65% Factors affecting care: As per HPI Social determinants of health: Tobacco use History obtained from others: Consults: none [facility] Narrative: The patient was initially hypoxic with initial saturation of 88% on room air, was slightly tachycardic at 102, tachypneic at 24, patient proved with no inter vention to 94% on room air remained tachypneic and tachycardic I considered the following differential diagnosis: ACS, arrhythmia, anemia, electro disturbance, pneumonia, PE I obtained a broad lab and imaging workup to further elucidate etiology of patient's complaints I obtained a broad lab and imaging workup to further elucidate etiology of patient's complaints ALL IMAGES (IF OBTAINED) HAVE BEEN PERSONALLY REVIEWED AND INTERPRETED BY MYSELF. EKG with normal sinus rhythm rate 100, normal axis, no intervals, no STEMI Chest x-ray was read reviewed personally myself showed possible pulmonary vascular congestion Additional labs including D-dimer, are pending at this time. Signed out to the p.m. physician pending labs and disposition The patient and/or family, caregivers express understanding. The patient and/or family, caregivers agrees with the plan. Shared decision making: I will have a discussion with the patient and or visitors regarding risk/benefits of further testing or admission. They will be made aware of of the risk/benefits inherent in this decision they will be given the opportunity to voice understanding. Total critical care time today provided was at least 0 minutes. This excludes separately billable procedures. Critical care time (if documented) is secondary to the patient having high probability of clinically significant/life threatening deterioration in the patient's condition which required my urgent intervention. Impression: 1. Shortness of breath 2. Severe COPD Dispo: Pending lab workup This note was generated with TwitChat dictation software. It may contain incorrect words, spelling, and punctuation that were not noted in review of the chart prior to signing. Lab Data Labs: Laboratory Results - last 24 hr 01/18/25 01/18/25 01/18/25 14:13 14:13 14:15 WBC Cancelled Corrected WBC Cancelled RBC Cancelled Hgb Cancelled Hct Cancelled MCV Cancelled MCH Cancelled MCHC Cancelled RDW Std Deviation Cancelled RDW Coeff of Twin Cancelled Plt Count Cancelled MPV Cancelled Immature Gran % (Auto) Cancelled Neut % (Auto) Cancelled Lymph % (Auto) Cancelled [place] % (Auto) Cancelled Eos % (Auto) Cancelled Baso % (Auto) Cancelled Absolute Neuts (auto) Cancelled Absolute Lymphs (auto) Cancelled Total Counted Cancelled Neutrophils % (Manual) Cancelled Band Neutrophils % Cancelled Lymphocytes % (Manual) Cancelled Monocytes % (Manual) Cancelled Eosinophils % (Manual) Cancelled Basophils % (Manual) Cancelled Metamyelocytes % Cancelled Myelocytes % Cancelled Promyelocytes % Cancelled Blast Cells % Cancelled Plasma Cell % (Manual) Cancelled Other Cells % Cancelled Nucleated RBC % Cancelled Nucleated RBCs/100 WBC Cancelled Differential Comment Cancelled Diff Path Review Cancelled Hypersegmented Neuts Cancelled Atypical Lymphocytes Cancelled Reactive Lymphocytes Cancelled Smudge Cells Cancelled Toxic Granulation Cancelled Toxic Vacuolation Cancelled Dohle Bodies Cancelled Kasie Rods Cancelled Platelet Estimate Cancelled Plt Morphology Comment Cancelled RBC Morphology Cancelled Cancelled Polychromasia Cancelled Hypochromasia Cancelled Basophilic Stippling Cancelled Anisocytosis Cancelled Microcytosis Cancelled Macrocytosis Cancelled Spherocytes Cancelled Sickle Cells Cancelled Target Cells Cancelled Tear Drop Cells Cancelled Ovalocytes Cancelled Stomatocytes Cancelled [place] Bodies Cancelled Mayo Cells Cancelled Bite Cells Cancelled Crenated Cell Cancelled Acanthocytes (Spur) Cancelled Rouleaux Cancelled Schistocytes Cancelled D-Dimer Quant (PE/DVT) 0.72 H* Sodium 137 Potassium 3.6 Chloride 106 Carbon Dioxide 19.5 L Anion Gap 12 BUN 7 Creatinine 0.65 L Est GFR (MDRD) Non-Af 102 BUN/Creatinine Ratio 10.4 Glucose 94 Calcium 8.5 Troponin T High Sens < 6 NT pro BNP II 285 01/18/25 15:55 WBC 12.3 H Corrected WBC RBC 3.74 L Hgb 11.3 L Hct 34.3 L MCV 91.7 MCH 30.2 MCHC 32.9 RDW Std Deviation 48.8 H RDW Coeff of Twin 14.6 Plt Count 301 MPV 10.1 Immature Gran % (Auto) 0.500 Neut % (Auto) 85.1 H Lymph % (Auto) 10.2 L [place] % (Auto) 3.3 Eos % (Auto) 0.6 Baso % (Auto) 0.3 Absolute Neuts (auto) 10.4 H Absolute Lymphs (auto) 1.25 Total Counted Neutrophils % (Manual) Band Neutrophils % Lymphocytes % (Manual) Monocytes % (Manual) Eosinophils % (Manual) Basophils % (Manual) Metamyelocytes % Myelocytes % Promyelocytes % Blast Cells % Plasma Cell % (Manual) Other Cells % Nucleated RBC % 0 Nucleated RBCs/100 WBC Differential Comment Diff Path Review Hypersegmented Neuts Atypical Lymphocytes Reactive Lymphocytes Smudge Cells Toxic Granulation Toxic Vacuolation Dohle Bodies Kasie Rods Platelet Estimate Plt Morphology Comment RBC Morphology Polychromasia Hypochromasia Basophilic Stippling Anisocytosis Microcytosis Macrocytosis Spherocytes Sickle Cells Target Cells Tear Drop Cells Ovalocytes Stomatocytes [place] Bodies Mayo Cells Bite Cells Crenated Cell Acanthocytes (Spur) Rouleaux Schistocytes D-Dimer Quant (PE/DVT) Sodium Potassium Chloride Carbon Dioxide Anion Gap BUN Creatinine Est GFR (MDRD) Non-Af BUN/Creatinine Ratio Glucose Calcium Troponin T High Sens NT pro BNP II Radiography Diagnostic Testing: Clinical Impression(s) from Imaging Studies Chest X-Ray 01/18/25 13:30 IMPRESSION: Pulmonary congestion and edema. Pneumonia cannot be excluded. Reading Location: [facility] Chest CTA 01/18/25 17:33 IMPRESSION: Probable pneumonia. Enlarged/prominent mediastinal lymph nodes which may be reactive. No pulmonary embolism. Reading Location: [id number] <Dr. Basil Krishnan, DO - Last Filed: 01/18/25 19:20> [facility] Narrative Medical decision making narrative: HISTORY OF PRESENT ILLNESS: Chief complaint: Shortness of breath 59-year-old female history of BEAU, hypoxia, tobacco abuse, type 2 diabetes, fibromyalgia presenting for shortness of breath since yesterday. Notes dry cough. Cough is nonproductive yellow-green sputum. Denies hemoptysis. Denies any other PE risk factors. Denies chest pain. Denies palpitations. Denies leg swelling. Denies orthopnea proximal nocturnal dyspnea. Notes she stopped smoking yesterday. REVIEW OF SYSTEMS: Pertinent positives: Shortness of breath Pertinent negatives: As per HPI PHYSICAL EXAM: Nursing triage notes reviewed, Vital signs reviewed Constitutional: please see mdm HENT: MMM Eyes: Pupils equal round and reactive to light, Extraocular muscles intact Neck: No stridor, no JVD, full neck ROM Lungs: Clear to auscultation, No wheezing or rales. No increased work of breathing, no conversational dyspnea, no accessory muscle use, no nasal flaring. No respiratory distress noted. Slightly prolonged r expiratory phase Heart: Regular rate and rhythm, No murmurs, No rubs and No gallops, 2+ distal pulses (radial, femoral, posterior tibial) in all extremities Abdomen: Soft, there is no tenderness, rigidity, rebound or guarding, no obvious peritoneal signs, no palpable pulsatile abdominal masses, no auscultated abdominal bruit : No CVAT Extremities: No edema Neuro: No new focal neurological deficits, cranial nerves II through XII intact, 5/5 strength in all present extremities. Intact sensation to light touch in all present extremities, 2+ reflexes bilateral patella tendons. Skin: No rash or lesions noted MEDICAL DECISION MAKING: Chief Complaint: please see HPI External records reviewed: Reviewed prior echocardiogram from 2017 showed ejection fraction 65% Factors affecting care: As per [facility] Social determinants of health: Tobacco use History obtained from others: Consults: none [facility] Narrative: The patient was initially hypoxic with initial saturation of 88% on room air, was slightly tachycardic at 102, tachypneic at 24, patient proved with no intervention to 94% on room air remained tachypneic and tachycardic I considered the following differential diagnosis: ACS, arrhythmia, anemia, electro disturbance, pneumonia, PE I obtained a broad lab and imaging workup to further elucidate etiology of patient's complaints I obtained a broad lab and imaging workup to further elucidate etiology of patient's complaints ALL IMAGES (IF OBTAINED) HAVE BEEN PERSONALLY REVIEWED AND INTERPRETED BY MYSELF. EKG with normal sinus rhythm rate 100, normal axis, no intervals, no STEMI Chest x-ray was read reviewed personally myself showed possible pulmonary vascular congestion Additional labs including D-dimer, are pending at this time. Signed out to the p.m. physician pending labs and disposition The patient and/or family, caregivers express understanding. The patient and/or family, caregivers agrees with the plan. Shared decision making: I will have a discussion with the patient and or visitors regarding risk/benefits of further testing or admission. They will be made aware of of the risk/benefits inherent in this decision they will be given the opportunity to voice understanding. Total critical care time today provided was at least 0 minutes. This excludes separately billable procedures. Critical care time (if documented) is secondary to the patient having high probability of clinically significant/life threatening deterioration in the patient's condition which required my urgent intervention. Impression: 1. Shortness of breath 2. Severe COPD Dispo: Pending lab workup This note was generated with TwitChat dictation software. It may contain incorrect words, spelling, and punctuation that were not noted in review of the chart prior to signing. 1540: Le. Patient signed out to me ending lab workup. With difficult stick. History of COPD worsening dyspnea dry cough. EKG normal. Chest x-ray questionable infiltrate versus edema. Awaiting lab work. 1715: Awaiting D-dimer results troponin negative BNP negative. creatinine 0.65. Hemoglobin 11.3 white count 12.3. Reevaluation of patient, 2 days of cough symptoms has been dry. No history of PE or DVT. Tobacco history. No home oxygen. She was 88% on room air on arrival has been in the 90s. Discussed with them we will need plan pulse oxygen ambulation test. 1735: D-dimer elevated 0.72. CTA chest ordered. Discussed this with the patient and significant other. With her COPD increasing dyspnea will give Solu- Medrol IV. She is not diabetic. Will reevaluate. 1850: Awaiting results of CT angiogram. In the room she did desat to 89% with walk instructed on 82% nursing placed on oxygenation. 190: CT results negative PE however bilateral pneumonia concerns. I will cover with antibiotics of Rocephin and Zithromax. I will discuss with hospitalist for admission. 1917: I spoke with Dr. Rahman for admission to the medical floor. We will order COVID flu and RSV as groundglass changes were noted. Lab Data Attestation: I reviewed the patient's lab results. Labs: Laboratory Results - last 24 hr 01/18/25 01/18/25 01/18/25 14:13 14:13 14:15 WBC Cancelled Corrected WBC Cancelled RBC Cancelled Hgb Cancelled Hct Cancelled MCV Cancelled MCH Cancelled MCHC Cancelled RDW Std Deviation Cancelled RDW Coeff of Twin Cancelled Plt Count Cancelled MPV Cancelled Immature Gran % (Auto) Cancelled Neut % (Auto) Cancelled Lymph % (Auto) Cancelled [place] % (Auto) Cancelled Eos % (Auto) Cancelled Baso % (Auto) Cancelled Absolute Neuts (auto) Cancelled Absolute Lymphs (auto) Cancelled Total Counted Cancelled Neutrophils % (Manual) Cancelled Band Neutrophils % Cancelled Lymphocytes % (Manual) Cancelled Monocytes % (Manual) Cancelled Eosinophils % (Manual) Cancelled Basophils % (Manual) Cancelled Metamyelocytes % Cancelled Myelocytes % Cancelled Promyelocytes % Cancelled Blast Cells % Cancelled Plasma Cell % (Manual) Cancelled Other Cells % Cancelled Nucleated RBC % Cancelled Nucleated RBCs/100 WBC Cancelled Differential Comment Cancelled Diff Path Review Cancelled Hypersegmented Neuts Cancelled Atypical Lymphocytes Cancelled Reactive Lymphocytes Cancelled Smudge Cells Cancelled Toxic Granulation Cancelled Toxic Vacuolation Cancelled Dohle Bodies Cancelled Kasie Rods Cancelled Platelet Estimate Cancelled Plt Morphology Comment Cancelled RBC Morphology Cancelled Cancelled Polychromasia Cancelled Hypochromasia Cancelled Basophilic Stippling Cancelled Anisocytosis Cancelled Microcytosis Cancelled Macrocytosis Cancelled Spherocytes Cancelled Sickle Cells Cancelled Target Cells Cancelled Tear Drop Cells Cancelled Ovalocytes Cancelled Stomatocytes Cancelled [place] Bodies Cancelled Mayo Cells Cancelled Bite Cells Cancelled Crenated Cell Cancelled Acanthocytes (Spur) Cancelled Rouleaux Cancelled Schistocytes Cancelled D-Dimer Quant (PE/DVT) 0.72 H* Sodium 137 Potassium 3.6 Chloride 106 Carbon Dioxide 19.5 L Anion Gap 12 BUN 7 Creatinine 0.65 L Est GFR (MDRD) Non-Af 102 BUN/Creatinine Ratio 10.4 Glucose 94 Calcium 8.5 Troponin T High Sens < 6 NT pro BNP II 285 01/18/25 15:55 WBC 12.3 H Corrected WBC RBC 3.74 L Hgb 11.3 L Hct 34.3 L MCV 91.7 MCH 30.2 MCHC 32.9 RDW Std Deviation 48.8 H RDW Coeff of Twin 14.6 Plt Count 301 MPV 10.1 Immature Gran % (Auto) 0.500 Neut % (Auto) 85.1 H Lymph % (Auto) 10.2 L [place] % (Auto) 3.3 Eos % (Auto) 0.6 Baso % (Auto) 0.3 Absolute Neuts (auto) 10.4 H Absolute Lymphs (auto) 1.25 Total Counted Neutrophils % (Manual) Band Neutrophils % Lymphocytes % (Manual) Monocytes % (Manual) Eosinophils % (Manual) Basophils % (Manual) Metamyelocytes % Myelocytes % Promyelocytes % Blast Cells % Plasma Cell % (Manual) Other Cells % Nucleated RBC % 0 Nucleated RBCs/100 WBC Differential Comment Diff Path Review Hypersegmented Neuts Atypical Lymphocytes Reactive Lymphocytes Smudge Cells Toxic Granulation Toxic Vacuolation Dohle Bodies Kasie Rods Platelet Estimate Plt Morphology Comment RBC Morphology Polychromasia Hypochromasia Basophilic Stippling Anisocytosis Microcytosis Macrocytosis Spherocytes Sickle Cells Target Cells Tear Drop Cells Ovalocytes Stomatocytes [place] Bodies [place] Cells Bite Cells Crenated Cell Acanthocytes (Spur) Rouleaux Schistocytes D-Dimer Quant (PE/DVT) Sodium Potassium Chloride Carbon Dioxide Anion Gap BUN Creatinine Est GFR (MDRD) Non-Af BUN/Creatinine Ratio Glucose Calcium Troponin T High Sens NT pro BNP II Radiography Diagnostic Testing: Clinical Impression(s) from Imaging Studies Chest X-Ray 01/18/25 13:30 IMPRESSION: Pulmonary congestion and edema. Pneumonia cannot be excluded. Reading Location: [facility] Chest CTA 01/18/25 17:33 IMPRESSION: Probable pneumonia. Enlarged/prominent mediastinal lymph nodes which may be reactive. No pulmonary embolism. Reading Location: [id number] Discharge Plan Dx/Rx/DC Orders Clinical Impression: Bilateral pneumonia, Hypoxia, COPD exacerbation Disposition Disposition: Acute Care Hospital [facility]
--- NOTE | 2025-01-18 13:10 | EKG12_ITS ---
Test Reason : Blood Pressure : */* mmHG Vent. Rate : 100 BPM Atrial Rate : 100 BPM P-R Int : 144 ms QRS Dur : 96 ms QT Int : 356 ms P-R-T Axes : 55 22 67 degrees QTcB Int : 459 ms Normal sinus rhythm Nonspecific T wave abnormality Abnormal ECG Confirmed by MELINA FLORES, ANGELA ([id number]), editorial intern PREM MELENDREZ ([id number]) on 01/24/2025 6:44:23 AM Referred By: HARSH Confirmed By: ANGELA SUMMERS MD
--- NOTE | 2025-01-18 13:30 | RAD_ITS ---
EXAM: XR Chest, 1 View CLINICAL INDICATION: SHORTNESS OF BREATH TECHNIQUE: Frontal view of the chest. COMPARISON: No relevant prior studies available. FINDINGS: LUNGS AND PLEURAL SPACES: Pulmonary congestion and edema. Pneumonia cannot be excluded. No pneumothorax. HEART: Unremarkable. No cardiomegaly. MEDIASTINUM: Unremarkable. Normal mediastinal contour. BONES/JOINTS: Unremarkable. No acute fracture. RAD/Chest 1 View (Portable) IMPRESSION: Pulmonary congestion and edema. Pneumonia cannot be excluded. Reading Location: [facility]
[2025-01-18 16:07] LABS: Absolute Lymphocyte Count 1.25 X10^3/uL (0.83-4.51); Absolute Neutrophil Count 10.4 X10^3/uL (2.0-7.7); Basophil# 0.04 X10^3/uL; Basophil% 0.3 % (0-1); Eosinophil# 0.07 X10^3/uL; Eosinophils% 0.6 % (0-5); Hematocrit 34.3 % (37-47); Hemoglobin 11.3 g/dL (12.0-15.0); Lymphocyte # 1.25 X10^3/ul (0.83-4.51); Lymphocyte % 10.2 % (19-41); Mean Corp Hgb Conc 32.9 g/dL (32-36); Mean Corpuscular Hgb 30.2 pg (27.0-32.0); Mean Corpuscular Volume 91.7 fL (81-99); Mean Platelet Vol. 10.1 fl (6.2-12.0); Monocyte# 0.41 X10^3/uL; Monocyte% 3.3 % (0-10); NRBC Flagged by Analyzer 0 % (0-5); Neutrophil # 10.43 X10^3/uL (2.7-7.7); Neutrophil % 85.1 % (47-70); Platelet Count 301 K/mm3 (150-450); RBC Distribution Width CV 14.6 % (11.6-14.6); RBC Distribution Width SD 48.8 fl (35.1-43.9); Red Blood Count 3.74 M/mm3 (4.2-5.4); White Blood Count 12.3 K/mm3 (4.4-11.0)
[2025-01-18 16:37] LABS: Anion Gap 12 (5-15); BUN 7 mg/dL (4-19); BUN/Creat Ratio 10.4 RATIO (10-20); Calcium,Total 8.5 mg/dL (7.6-11.0); Carbon Dioxide 19.5 mmol/L (21.0-32.0); Chloride 106 mmol/L (98-108); Creatinine, Serum 0.65 mg/dL (0.70-1.20); EST Glomerular Filtration Rate 102 (>60); Glucose 94 mg/dL (70-99); Potassium 3.6 mmol/L (3.3-5.1); Pro- Brain NATRIURETIC PEPTIDE 285 pg/mL (<=900); Sodium Level 137 mmol/L (133-145); Troponin T High Sensitivity < 6 ng/L (<=14)
[2025-01-18 17:28] LABS: D-Dimer Quantitative (DVT/PE) 0.72 FEU/ug/m (0.27-0.49)
--- NOTE | 2025-01-18 17:33 | CT_ITS ---
PROCEDURE: CTA CHEST W/WO CONTRAST 01/18/2025 REASON FOR EXAM: SOB, ELEVATED DIMER TECHNIQUE: CTA axial imaging of the chest with intravenous contrast. Multiplanar and multisequence images were obtained. Intravenous contrast was administered. One or more dose reduction techniques were used (e.g., Automated exposure control, adjustment of the mA and/or kV according to patient size, use of iterative reconstruction technique). RADIATION DOSE SUMMARY: CTDlvol: 14.25+ 12.50 mGy DLP: 397.79 mGycm . COMPARISON: None. FINDINGS: Hardware: None significant. Lymph nodes: Enlarged/prominent mediastinal lymph nodes which may be reactive. Heart: Normal. Thoracic Aorta: Normal. Pulmonary Vessels: No evidence of acute pulmonary emboli through the major subsegmental branches. Lungs and Airways: Patchy bilateral diffuse ground-glass opacities suspicious for pneumonia. Pleura: No pleural effusion. No pneumothorax. Upper Abdomen: Hepatic steatosis. Prior gastric bypass. Bones: Bone windows are unremarkable. CT/CTA Chest W/WO Contrast IMPRESSION: Probable pneumonia. Enlarged/prominent mediastinal lymph nodes which may be reactive. No pulmonary embolism. Reading Location: [place] [id number]
[2025-01-18] MEDS: MethylPREDNISolone 125 MG/2 ML Vial IV (18:03)
--- NOTE | 2025-01-18 19:17 | PCM.HP.STD ---
[facility] - General General Date of Admission: 01/18/25 Date of Service: 01/18/25 Chief Complaint: SOB and Cough. HPI Narrative LILI VIEIRA, is a 59 F with a past medical history of hypothyroidism; s/p thyroidectomy on levothyroxine, chronic tobacco abuse; with subsequent COPD (not on home oxygen), BEAU, migraine headaches; on topiramate BID plus prn sumatriptan, fibromyalgia, depression; on amitriptyline and duloxetine BID, history of gastric bypass, GERD with history of hiatal hernia; on esomeprazole, history of UTI, muscle spasms; on prn tizanidine, RA and OA; with herniated cervical disc; s/p discectomy and chronic pain syndrome on buprenorphine patch who presents to [facility] ER complaining of SOB and cough. Ms. Vieira reports her symptoms began approximately one day prior to admission with the gradual-onset of progressively worsening ROGERS that progressed to shortness of breath at rest. She also endorses history of cough productive of greenish-yellow sputum so she finally decided to stop smoking yesterday - but when her condition continued to decline she decided to come in today for further evaluation and treatment. She denies related fever, chills, nausea, vomiting, diarrhea, constipation, abdominal pain, chest pain, palpitations, heart racing, headache or rash. In the ER she was note to have an elevated d-dimer of 0.72 present on admission with a subsequent CTA of the chest with IV contrast that revealed no evidence of pulmonary emboli but did show patchy diffuse ground-glass opacities suspicious for Pneumonia with Leukocytosis of 12.3K present on admission complicated by clinical evidence of AE COPD with Acute Respiratory Insufficiency and she was then admitted to the general medical floor for ongoing care for a stay that is expected to extend beyond 2 midnights. [facility] Medical History Diabetes type 2, controlled BEAU (obstructive sleep apnea) Bronchitis Hiatal hernia Depression Chronic UTI Cervical herniated disc History of bronchitis Back pain Migraine headache Fibromyalgia Chronic pain disorder Hypothyroid Rheumatoid arthritis Home Medications ?Medication ?Instructions ?Recorded ?Last Taken ?Type sumatriptan succinate 100 mg 100 mg PO .X1 PRN migraines 01/02/18 01/09/25 History tablet (Imitrex) zolpidem 10 mg tablet (Ambien) 5 - 10 mg PO QHS PRN sleep 01/02/18 01/17/25 History duloxetine 60 mg capsule,delayed 60 mg PO BID antidepressant 07/14/18 01/17/25 History release albuterol sulfate 90 mcg/actuation 2 puff inhalation Q4H PRN 11/13/22 01/18/25 Rx aerosol inhaler shortness of breath or wheezing #8.5 grams Nebulizer machine #1 ea 12/19/22 Unknown Rx albuterol sulfate 2.5 mg/3 mL 2.5 mg inhalation Q2H PRN Wheezing 02/16/24 Unknown History (0.083 %) solution for nebulization amitriptyline 75 mg tablet 75 mg PO QHS antidepressant 02/16/24 01/17/25 History tizanidine 4 mg capsule 4 mg PO TID PRN PRN muscle spasm 02/16/24 01/17/25 History topiramate 100 mg tablet 100 mg PO BID migraines 02/16/24 01/16/25 History buprenorphine 15 mcg/hour weekly 1 patch transdermal QWEEK pain 02/17/24 01/18/25 History transdermal patch amitriptyline 150 mg tablet 150 mg PO QHS antidepressant 01/18/25 01/17/25 History baclofen 10 mg tablet 10 mg PO BID muscle relaxer 01/18/25 01/17/25 History biotin 10 mg tablet 10 mg PO DAILY vitamin 01/18/25 01/17/25 History levothyroxine 175 mcg tablet 175 mcg PO DAILY hypothyroid 01/18/25 01/17/25 History potassium chloride 10 mEq 10 meq PO DAILY supplement 01/18/25 01/17/25 History tablet,extended release pyridoxine (vitamin B6) 100 mg 100 mg PO DAILY supplement 01/18/25 01/17/25 History tablet Allergy/AdvReac Type Severity Reaction Status Date / Time hydrocodone bitartrate (From Allergy Itching Verified 05/20/24 14:32 Vicodin) ibuprofen Allergy Other Verified 05/20/24 14:32 Family History Mother Asthma Depression Myocardial infarction Heart disease Father Heart disease Myocardial infarction Hypertension Sister Hepatitis Surgical History History of knee surgery Hx of shoulder surgery History of bilateral breast reduction surgery H/O repair of rotator cuff H/O thyroidectomy H/O discectomy History of carpal tunnel release History of bunionectomy H/O gastric bypass Social History household members: none Smoking Status: Current every day smoker tobacco type: cigarettes second hand exposure: Yes alcohol intake: never substance use type: does not use ROS ROS Narrative Review of Systems: Constitutional: Patient denies fever or chills. Eyes: Patient denies changes in vision or discharge from eyes. ENT: Patient denies runny nose, sore throat or ear pain. Resp: Patient admits to SOB and cough. CV: Patient denies chest pain, palpitations, heart racing or LE edema. GI: Patient denies abdominal pain, nausea, vomiting, diarrhea or constipation. : Patient denies dysuria or hematuria. MSK: Patient admits to chronic pain. Skin: Patient denies rash, abscess, wounds or jaundice. Psych: Patient denies symptoms of uncontrolled depression or anxiety. Neuro: Patient denies headache, paresthesias or focal neurologic deficits. Allergy: Patient denies lip swelling, tongue swelling or urticaria. Hematology: Patient denies easy bleeding or easy bruisability. Endocrinology: Patient denies polyuria, polydipsia, polyphagia or heat/cold intolerance. 14 point ROS otherwise negative except for positives noted above in HPI. Vital Signs Vital Signs Vital Signs: 01/18/25 12:01 01/18/25 12:03 01/18/25 12:03 Temperature 97.6 F L 98.7 F Temperature Source Temporal Oral Pulse Rate 102 H 101 H Respiratory Rate 24 H 26 H Respiratory Effort Normal Respiratory Depth Normal Respiratory Pattern Normal Blood Pressure 98/62 117/57 L Blood Pressure Mean 74 77 Pulse Ox 88 94 Oxygen Delivery Method Room Air Room Air Room Air Oxygen Flow Rate (L/min) 01/18/25 13:00 01/18/25 13:22 01/18/25 14:00 Temperature 98.7 F Temperature Source Oral Pulse Rate 101 H 105 H Respiratory Rate 20 H 20 H Respiratory Effort Respiratory Depth Respiratory Pattern Blood Pressure 113/74 101/89 H Blood Pressure Mean 87 93 Pulse Ox 94 95 Oxygen Delivery Method Room Air Room Air Oxygen Flow Rate (L/min) 01/18/25 15:00 01/18/25 16:00 01/18/25 17:00 Temperature Temperature Source Pulse Rate 104 H 101 H 105 H Respiratory Rate 20 H 20 H 29 H Respiratory Effort Respiratory Depth Respiratory Pattern Blood Pressure Blood Pressure Mean Pulse Ox 92 95 96 Oxygen Delivery Method Oxygen Flow Rate (L/min) 01/18/25 17:16 01/18/25 17:30 01/18/25 17:48 Temperature Temperature Source Pulse Rate Respiratory Rate Respiratory Effort Respiratory Depth Respiratory Pattern Blood Pressure Blood Pressure Mean Pulse Ox 90 97 92 Oxygen Delivery Method Oxygen Flow Rate (L/min) 01/18/25 18:00 01/18/25 18:11 Temperature Temperature Source Pulse Rate 104 H Respiratory Rate 20 H Respiratory Effort Respiratory Depth Respiratory Pattern Blood Pressure Blood Pressure Mean Pulse Ox 89 97 Oxygen Delivery Method Nasal Cannula Oxygen Flow Rate (L/min) 2 Physical Exam Const alert, oriented x3, no apparent distress and average body habitus General Appearance: cooperative HEENT normocephalic, head/scalp atraumatic, hearing grossly normal bilaterally and moist oral mucous membranes Eyes PERRL, EOMs intact bilaterally and conjunctivae normal Neck no lymphadenopathy, supple and no JVD Resp Resp Narrative: Diminished breath sounds throughout. Cardio regular rate and regular rhythm GI normal to inspection, nondistended, normoactive bowel sounds, soft to palpation, non-tender and non-distended Extremity normal to inspection, full ROM and no clubbing, cyanosis or edema Skin Skin Narrative: Patient has no evidence of rash, abscess, wounds or jaundice. Neuro oriented x3, CN's II-XII intact bilaterally, moves all extremities and no focal motor deficits Sensorium / Orientation: awake, alert, oriented to person, oriented to place and oriented to time Speech: speech normal Psych affect normal Results Medical Records Data Attestation: I reviewed the patient's medical records Lab / Micro Data Attestation: I reviewed the patient's lab results. 01/18/25 15:55 01/18/25 14:13 Labs: Laboratory Results - last 24 hr 01/18/25 14:13: WBC Cancelled, Corrected WBC Cancelled, RBC Cancelled, Hgb Cancelled, Hct Cancelled, MCV Cancelled, MCH Cancelled, MCHC Cancelled, RDW Std Deviation Cancelled, RDW Coeff of Twin Cancelled, Plt Count Cancelled, MPV Cancelled, Immature Gran % (Auto) Cancelled, Neut % (Auto) Cancelled, Lymph % (Auto) Cancelled, [place] % (Auto) Cancelled, Eos % (Auto) Cancelled, Baso % (Auto) Cancelled, Absolute Neuts (auto) Cancelled, Absolute Lymphs (auto) Cancelled, Total Counted Cancelled, Neutrophils % (Manual) Cancelled, Band Neutrophils % Cancelled, Lymphocytes % (Manual) Cancelled, Monocytes % (Manual) Cancelled, Eosinophils % (Manual) Cancelled, Basophils % (Manual) Cancelled, Metamyelocytes % Cancelled, Myelocytes % Cancelled, Promyelocytes % Cancelled, Blast Cells % Cancelled, Plasma Cell % (Manual) Cancelled, Other Cells % Cancelled, Nucleated RBC % Cancelled, Nucleated RBCs/100 WBC Cancelled, Differential Comment Cancelled, Diff Path Review Cancelled, Hypersegmented Neuts Cancelled, Atypical Lymphocytes Cancelled, Reactive Lymphocytes Cancelled, Smudge Cells Cancelled, Toxic Granulation Cancelled, Toxic Vacuolation Cancelled, Dohle Bodies Cancelled, Kasie Rods Cancelled, Platelet Estimate Cancelled, Plt Morphology Comment Cancelled, RBC Morphology Cancelled 01/18/25 14:13: RBC Morphology Cancelled, Polychromasia Cancelled, Hypochromasia Cancelled, Basophilic Stippling Cancelled, Anisocytosis Cancelled, Microcytosis Cancelled, Macrocytosis Cancelled, Spherocytes Cancelled, Sickle Cells Cancelled, Target Cells Cancelled, Tear Drop Cells Cancelled, Ovalocytes Cancelled, Stomatocytes Cancelled, [place] Bodies Cancelled, [place] Cells Cancelled, Bite Cells Cancelled, Crenated Cell Cancelled, Acanthocytes (Spur) Cancelled, Rouleaux Cancelled, Schistocytes Cancelled, Sodium 137, Potassium 3.6, Chloride 106, Carbon Dioxide 19.5 L, Anion Gap 12, BUN 7, Creatinine 0.65 L, Est GFR (MDRD) Non-Af 102, BUN/Creatinine Ratio 10.4, Glucose 94, Calcium 8.5, Troponin T High Sens < 6, NT pro BNP II 285 01/18/25 14:15: D-Dimer Quant (PE/DVT) 0.72 H* 01/18/25 15:55: WBC 12.3 H, RBC 3.74 L, Hgb 11.3 L, Hct 34.3 L, MCV 91.7, MCH 30.2, MCHC 32.9, RDW Std Deviation 48.8 H, RDW Coeff of Twin 14.6, Plt Count 301, MPV 10.1, Immature Gran % (Auto) 0.500, Neut % (Auto) 85.1 H, Lymph % (Auto) 10.2 L, [place] % (Auto) 3.3, Eos % (Auto) 0.6, Baso % (Auto) 0.3, Absolute Neuts (auto) 10.4 H, Absolute Lymphs (auto) 1.25, Nucleated RBC % 0 Imaging Radiology Impression Chest X-Ray 01/18/25 13:30 IMPRESSION: Pulmonary congestion and edema. Pneumonia cannot be excluded. Reading Location: [facility] Chest CTA 01/18/25 17:33 IMPRESSION: Probable pneumonia. Enlarged/prominent mediastinal lymph nodes which may be reactive. No pulmonary embolism. Reading Location: [id number] Assessment & Plan Assessment/Plan (1) Bilateral pneumonia: QUALIFIERS: Lung location: unspecified part of lung Pneumonia type: due to unspecified organism Qualified Code(s): J18.9 - Pneumonia, unspecified organism (2) Leukocytosis: QUALIFIERS: Leukocytosis type: unspecified Qualified Code(s): D72.829 - Elevated white blood cell count, unspecified (3) COPD exacerbation: (4) Acute respiratory insufficiency: (5) Tobacco abuse: (6) BEAU (obstructive sleep apnea): (7) Overweight (BMI 25.0-29.9): PLAN: Plan 1. CTA of the chest with IV contrast that revealed no evidence of pulmonary emboli but did show patchy diffuse ground-glass opacities suspicious for Pneumonia with Leukocytosis of 12.3K present on admission - Admit to general medical floor with telemetric monitoring. Continue IV ceftriaxone and IV azithromycin begun in ER and await culture and sensitivity data. Check viral panel and place on droplet precautions until results confirmed negative. Give acetaminophen prn for pain or fever. 2. AE COPD with Acute Respiratory Insufficiency due to #1 in the setting of Chronic Tobacco Abuse - Maintain methylprednisolone IV plus scheduled and prn nebulizers. Continued tobacco cessation will be strongly encouraged with Nicotine patch offered to control cravings. 3. Overweight; with BMI of 28.2 this admission with BEAU complicating #1 & #2 - Weight loss will be recommended. Resume nocturnal CPAP. Check TSH. 4. Hypothyroidism; s/p thyroidectomy on levothyroxine - Continue levothyroxine and check TSH. 5. Migraine headaches; on topiramate BID plus prn sumatriptan - Current therapy to continue as before. 6. Fibromyalgia - Stable. 7. Depression; on amitriptyline and duloxetine BID - Controlled with present treatment. 8. History of gastric bypass - Noted. Check B12 and Folate levels to screen for underlying malabsorption of nutrients. 9. GERD with history of hiatal hernia; on esomeprazole - Resume PPI. 10. History of UTI - Noted with UA pending this admission. 11. Muscle spasms; on prn tizanidine - Maintain present treatment. 12. RA - Stable with no evidence of flare. 13. OA; with herniated cervical disc; s/p discectomy and chronic pain syndrome on buprenorphine patch - Resume bupernorphine patch. 14. DVT prophylaxis - Enoxaparin 40 mg sq daily. Total time: Approximately (but not less than) 55 minutes. Charges/Coding Visit Charges Inpatient E&M: 56024 Init Hosp L2
[2025-01-18] MEDS: Ceftriaxone 1 GM/50 ML BAG IV (19:22)
[2025-01-18] MEDS: Famotidine 20 MG Tablet PO (19:23)
[2025-01-18 20:03] LABS: Bacteria 0 SEEN /hpf (None Seen); Mucous, Urine 0 SEEN /hpf (<or=2+); Red Blood Cells-Urine 0 SEEN /hpf (0-5); Squamous Epithelial Cells - UA 0 SEEN /hpf (5-10); White Blood Cells 0 SEEN /hpf (0-5)
[2025-01-18] MEDS: Azithromycin 500 MG in 0.9% Normal Saline (250mL Bag) 250 ML 255 MG IV (20:04)
[2025-01-18 20:06] LABS: Color, Urine Straw (Yellow); Glucose, Dipstick Normal (Normal); Ketone-Dipstick Negative (Negative); Leukocyte Esterase-Dipstick Negative /ul (Negative); Nitrite-Dipstick Negative (Negative); Occult Blood-Urine Negative /ul (Negative); Protein-Dipstick Negative (Negative); Specific Gravity, Urine 1.005 (1.002-1.030); Urine Bilirubin Dipstick Negative (Negative); Urine Clarity Clear (Clear); Urine Urobilinogen Normal (Normal)
--- NOTE | 2025-01-18 21:09 | VDLE_ITS ---
Reason For Study Reason For Study: Elevated D-dimer RIGHT LEFT GSV is normal. GSV is normal. CFV is compressible, spontaneous, phasic, competent CFV is compressible, spontaneous, phasic, competent, and demonstrates normal augmentation. and demonstrates normal augmentation. FV is compressible, spontaneous, phasic, competent FV is compressible, spontaneous, phasic, competent and demonstrates normal augmentation. and demonstrates normal augmentation. POP V is compressible, spontaneous, phasic, competent POP V is compressible, spontaneous, phasic, competent and demonstrates normal augmentation. and demonstrates normal augmentation. T/P Trunk is compressible. T/P Trunk is compressible. PTV is compressible. PTV is compressible. RT PerV is compressible. LT PerV is compressible. Procedure This is a venous duplex using B-mode, color flow and spectral Doppler. Exam performed in department. A preliminary report was called and/or faxed to [facility]. VL/Venous Duplex US - Todd Extrem Interpretation Summary Deep veins of the bilateral lower extremities are patent and compressible segme ntally. There is no evidence of bilateral lower extremity deep vein thrombosis. The bilateral great saphenous veins appea r patent and compressible segmentally. Ordering Physician: Jigar Bullock Referring Physician: Mark Gomez Performed By: Coretta Pal RVT
[2025-01-18 21:37] LABS: Magnesium 1.8 mg/dL (1.5-2.2)
[2025-01-18] MEDS: guaiFENesin 10 ML UDC (200MG/10ML) 20 ML PO (22:09)
[2025-01-18] MEDS: 0.9% Normal Saline (1000mL) 1,000 ML 100 ML IV (22:09)
[2025-01-18] MEDS: Amitriptyline 25 MG Tablet 75 MG PO (22:09)
[2025-01-18] MEDS: Lactobacillis Acidophilus 1 CAP PO (22:10)
[2025-01-18] MEDS: Baclofen 10 MG Tablet PO (22:10)
[2025-01-18] MEDS: DULoxetine Hcl 60 MG Capsule PO (22:11)
[2025-01-18 22:22] LABS: Vitamin B12 2681 pg/mL (180-914)
[2025-01-18] MEDS: Topiramate 100 MG Tablet PO (22:55)
[2025-01-18] MEDS: Albuterol 2.5 MG/3 ML VIAL.NEB. INHALATION (23:20)
[2025-01-18 23:33] LABS: Allen Test Positive; Base Excess 1 mmol/L (-2 to +2); Bicarbonate 25.1 mmol/L (22-26); Blood Gas Specimen Type ART; Mode Not entered; O2 Delivery Device Cannula; PO2 77 mmHG (75-100); SITE L Radial; SO2 96 % (95-99); Total Carbon Dioxide 26 mmol/L; pH 7.45 (7.35-7.45)
[2025-01-19] VITALS (11 sets, daily range): BP systolic 120–138; BP diastolic 61–77; PULSE 79–99; RESP 18–32; TEMP 36.4–36.7; O2SAT 88–99; BMI 25.9
[2025-01-19 06:37] LABS: Absolute Lymphocyte Count 0.64 X10^3/uL (0.83-4.51); Basophil# 0.01 X10^3/uL; Basophil% 0.1 % (0-1); Hematocrit 35.5 % (37-47); Hemoglobin 11.5 g/dL (12.0-15.0); Lymphocyte # 0.64 X10^3/ul (0.83-4.51); Lymphocyte % 5.8 % (19-41); Mean Corp Hgb Conc 32.4 g/dL (32-36); Mean Corpuscular Hgb 30.1 pg (27.0-32.0); Mean Corpuscular Volume 92.9 fL (81-99); Mean Platelet Vol. 10.2 fl (6.2-12.0); Monocyte# 0.26 X10^3/uL; Monocyte% 2.4 % (0-10); NRBC Flagged by Analyzer 0 % (0-5); Neutrophil # 9.99 X10^3/uL (2.7-7.7); Neutrophil % 91.2 % (47-70); Platelet Count 298 K/mm3 (150-450); RBC Distribution Width CV 14.6 % (11.6-14.6); RBC Distribution Width SD 49.7 fl (35.1-43.9); Red Blood Count 3.82 M/mm3 (4.2-5.4)
[2025-01-19] MEDS: Levothyroxine 175 MCG Tablet PO (06:42)
[2025-01-19 07:01] LABS: Phosphorus 3.2 mg/dL (2.7-4.5); Thyroid Stim Hormone (TSH) 0.015 uIU/mL (0.300-4.200)
[2025-01-19 07:04] LABS: ALB/GLOB Ratio 0.8 RATIO (0.9-2.4); AST(SGOT) 27 U/L (<=31); Alanine Aminotransfer ALT/SGPT 18 U/L (<=34); Albumin, Serum 2.5 g/dL (3.5-5.0); Alkaline Phosphatase 118 U/L (35-104); Anion Gap 11 (5-15); BUN 7 mg/dL (4-19); BUN/Creat Ratio 15.4 RATIO (10-20); Calcium,Total 8.3 mg/dL (7.6-11.0); Carbon Dioxide 16.1 mmol/L (21.0-32.0); Chloride 112 mmol/L (98-108); Creatinine, Serum 0.48 mg/dL (0.70-1.20); EST Glomerular Filtration Rate 110 (>60); Estimated Creatinine Clearance 112.66 ml/min (50-250); Globulin 3.2 g/dL (2.2-4.2); Glucose 129 mg/dL (70-99); Potassium 3.7 mmol/L (3.3-5.1); Protein, Total 5.6 g/dL (5.9-8.4); Sodium Level 139 mmol/L (133-145); Total Bilirubin 0.31 mg/dL (0.00-1.30)
[2025-01-19] MEDS: 0.9% Normal Saline (1000mL) 1,000 ML 100 ML IV (09:29)
[2025-01-19] MEDS: Cholecalciferol (Vit D3) 125 MCG CAPSULE (5,000 UNITS) PO (09:30)
[2025-01-19] MEDS: Ascorbic Acid 500 MG Tablet 1000 MG PO ×2 (09:30→16:39)
[2025-01-19] MEDS: Zinc Sulfate 50 mg zinc (220 mg) ORAL capsule PO (09:30)
[2025-01-19] MEDS: Potassium Chloride Oral Tablet 10 MEQ PO (09:30)
[2025-01-19] MEDS: DULoxetine Hcl 60 MG Capsule PO ×2 (09:31→21:03)
[2025-01-19] MEDS: Baclofen 10 MG Tablet PO ×2 (09:31→21:03)
[2025-01-19] MEDS: MethylPREDNISolone 125 MG/2 ML Vial 60 MG IV ×2 (09:31→20:59)
[2025-01-19] MEDS: Lactobacillis Acidophilus 1 CAP PO ×4 (09:31→21:03)
[2025-01-19] MEDS: Enoxaparin 40 MG/0.4 ML Syringe SC (09:32)
[2025-01-19] MEDS: Pyridoxine HCl 100 MG Tablet PO (09:32)
[2025-01-19] MEDS: Topiramate 100 MG Tablet PO ×2 (09:32→21:03)
[2025-01-19] MEDS: Buprenorphine 15 MCG PATCH.TDWK 1 PATCH TD (09:41)
[2025-01-19] MEDS: Ensure Plus High Protein 120 ML LIQUID PO ×2 (09:41→13:48)
--- NOTE | 2025-01-19 11:30 | CASEMGMT ---
RN CM central sterile technician CM to room to with patient for initial transition planning/care coordination assessment. RN DRAKE introduced self and role at [facility], pt voices understanding. Pt is A&O and sitting up in chair. @ bedside. Care providers, pharmacy, and demographics verified. Strata: 2 PCP: Dr Mark Gomez Specialists: [facility] in [place], Dr Silvestre richter. Pt had 1st appt w/Dr Kimball @ [facility] scheduled for today @ 2:30 PM. states he would call to cancel this. He was provided w/their phone #. [facility] Insurance: [employer] A/B, [employer] Prescription Benefit: Yes LNOK: Aaron Mantilla (H) Living Arrangements: Pt lives with her in a single story home with 1 step to enter ADLs/IADLs: Independent Transportation: Self, DME: Pt has a pulse ox and grab bar in shower. Pt states she also has has a functioning glucometer w/sufficient supplies. She checks her BS's PRN. Pt does not have home O2. A verbal list of local in-network DME companies provided to the pt at this time. Pt and prefer [employer], if she qualifies for home oxygen. Pt had a CPAP years ago but has not used it for a long time since losing about 100 # after gastric bypass surgery. She denies need for further DME. HHC/SNF: Denies history. Pt states she has been getting up in room w/out difficulty and denies need for HHC or OP therapy. Pt wishes to return home and states has no concerns with going home at time of discharge.? CM?to follow for home oxygen needs and any further discharge planning/needs.? Pt and voice no further concerns/needs at this time.? Advised them to ask for?CM?if any further questions/concerns/needs arise.? They voice understanding. PLAN:??Home Follow for any need for oxygen @ discharge. Rupa AGUILARN RACHEL JUAN
--- NOTE | 2025-01-19 14:33 | DCINST_ITS ---
Discharge Instructions DC O2, CPAP, BIPAP needs Home O2 Discharge instructions: No Dressing / Incision Weight Bearing Status: Full weight bearing Follow Up Care Test Results: Test results from this visit will be discussed in further detail at your follow- up appointment, if applicable. Discharge Plan Admission Admit Date/Time: 01/18/25 19:46 Primary Reason for Your Visit: Exacerbation of COPD, pneumonia Attending Provider: Finn Martinez Primary Care Provider: Mark Gomez Consulting Providers: Jigar Bullock Instructions Additional Instructions / Restrictions: Discussed your possible need for CPAP, you may have to undergo further testing Discharge Orders/Prescriptions Prescriptions: New levofloxacin 750 mg tablet 750 mg PO DAILY Qty: 6 0RF Rx Instructions: Start on 01/20/2025 prednisone 20 mg tablet 40 mg PO DAILY Qty: 16 0RF Rx Instructions: Start on 01/19/2025 Continued albuterol sulfate 90 mcg/actuation HFA aerosol inhaler 2 puff inhalation Q4H PRN (Reason: shortness of breath or wheezing) Qty: 8.5 6RF Rx Instructions: administer with spacer sumatriptan succinate [Imitrex] 100 MG tablet 100 mg PO .X1 PRN zolpidem [Ambien] 10 MG tablet 5 - 10 mg PO QHS PRN (Reason: sleep) duloxetine 60 MG capsule,delayed release(DR/EC) 60 mg PO BID albuterol sulfate 2.5 mg /3 mL (0.083 %) solution for nebulization 2.5 mg inhalation Q2H PRN (Reason: Wheezing) Patient Comments: only use when I get sick amitriptyline 75 mg tablet 75 mg PO QHS topiramate 100 mg tablet 100 mg PO BID tizanidine 4 mg capsule 4 mg PO TID PRN PRN (Reason: muscle spasm) Patient Comments: Typically only takes at bedtime. buprenorphine 15 mcg/hour patch weekly 1 patch transdermal QWEEK Patient Comments: Patient changes on . amitriptyline 150 mg tablet 150 mg PO QHS levothyroxine 175 mcg tablet 175 mcg PO DAILY biotin 10 mg tablet 10 mg PO DAILY potassium chloride 10 mEq tablet extended release 10 meq PO DAILY baclofen 10 mg tablet 10 mg PO BID pyridoxine (vitamin B6) 100 mg tablet 100 mg PO DAILY (DME) Nebulizer machine See Rx Instructions .ROUTE .MEDSUPPLY Qty: 1 0RF Rx Instructions: As directed Referrals / Follow Up: Mark Gomez DO [Primary Care Provider] - In 1 Week Disposition Disposition (needs filled in before D/C Order can be placed): Home, Self Care
--- NOTE | 2025-01-19 14:39 | DS.PCM_ITS ---
Providers Date of Admission: 01/18/25 Date of Discharge: 01/19/25 Primary Care Physician: Dr. Mark Gomez DO Reason For Visit: PNA & AE COPD Diagnosis Discharge Diagnosis (1) Bilateral pneumonia: Status: Acute Code(s): J18.9 - Pneumonia, unspecified organism Qualifiers: Lung location: unspecified part of lung Pneumonia type: due to unspecified organism Qualified Code(s): J18.9 - Pneumonia, unspecified organism (2) Leukocytosis: Status: Acute Code(s): D72.829 - Elevated white blood cell count, unspecified Qualifiers: Leukocytosis type: unspecified Qualified Code(s): D72.829 - Elevated white blood cell count, unspecified (3) COPD exacerbation: Status: Chronic Code(s): J44.1 - Chronic obstructive pulmonary disease with (acute) exacerbation (4) Acute respiratory insufficiency: Status: Acute Code(s): R06.89 - Other abnormalities of breathing (5) Tobacco abuse: Status: Acute Code(s): Z72.0 - Tobacco use (6) BEAU (obstructive sleep apnea): Status: Acute Code(s): G47.33 - Obstructive sleep apnea (adult) (pediatric) (7) Overweight (BMI 25.0-29.9): Status: Acute Code(s): E66.3 - Overweight Plan 1. Community-acquired pneumonia #2 exacerbation of COPD #3 obstructive sleep apnea #4 hypoxia secondary to #1 #5 hypothyroidism Medications at Discharge Home Medications sumatriptan succinate 100 mg tablet (Imitrex) 100 mg PO .X1 PRN migraines 01/02/18 zolpidem 10 mg tablet (Ambien) 5 - 10 mg PO QHS PRN sleep 01/02/18 duloxetine 60 mg capsule,delayed release 60 mg PO BID antidepressant 07/14/18 albuterol sulfate 90 mcg/actuation aerosol inhaler 2 puff inhalation Q4H PRN shortness of breath or wheezing #8.5 grams 11/13/22 Nebulizer machine #1 ea 12/19/22 albuterol sulfate 2.5 mg/3 mL (0.083 %) solution for nebulization 2.5 mg inhalation Q2H PRN Wheezing 02/16/24 amitriptyline 75 mg tablet 75 mg PO QHS antidepressant 02/16/24 tizanidine 4 mg capsule 4 mg PO TID PRN PRN muscle spasm 02/16/24 topiramate 100 mg tablet 100 mg PO BID migraines 02/16/24 buprenorphine 15 mcg/hour weekly transdermal patch 1 patch transdermal QWEEK pain 02/17/24 amitriptyline 150 mg tablet 150 mg PO QHS antidepressant 01/18/25 baclofen 10 mg tablet 10 mg PO BID muscle relaxer 01/18/25 biotin 10 mg tablet 10 mg PO DAILY vitamin 01/18/25 levothyroxine 175 mcg tablet 175 mcg PO DAILY hypothyroid 01/18/25 potassium chloride 10 mEq tablet,extended release 10 meq PO DAILY supplement 01/18/25 pyridoxine (vitamin B6) 100 mg tablet 100 mg PO DAILY supplement 01/18/25 levofloxacin 750 mg tablet 750 mg PO DAILY #6 tabs 01/19/25 prednisone 20 mg tablet 40 mg (2 x 20 mg) PO DAILY #16 tabs 01/19/25 Hospital Course Operations None Procedures None Summary of Care Provided Minutes Spent on Discharge: 30 Hospital Course: This 59-year-old white female was seen in the emergency room at [facility] with complaints of shortness of breath and cough which started 1 day prior to being seen in the ER. Patient states the cough was productive of yellow sputum-patient was a smoker at home. D-dimer was elevated and her workup in the emergency room and so a CTA of her chest with IV contrast was obtained which showed no evidence of pulmonary emboli but did show patchy diffuse groundglass opacities suspicious for pneumonia. Patient's white blood cell count was 12.3 and her pulse ox on room air was 88% in the emergency room. Patient was admitted to [place] [address], placed on IV antibiotics and aerosol treatments and IV corticosteroids, her condition improved quicker than expected, she was weaned off oxygen. On 01/19/2025, patient was seen and examined: On examination she appeared in good health and spirits, she does not appear to be in any distress. Vital signs as documented. Skin warm and dry and without overt rashes. Neck without JVD, thyroid appears normal, trachea is midline, neck is supple. Lungs clear, normal air movement was noted. Heart exam notable for regular rhythm, normal sounds and absence of murmurs, rubs or gallops. Abdomen unremarkable and without evidence of organomegaly, masses, or abdominal aortic enlargement, bowel sounds are present in all 4 quadrants, no abdominal tenderness was noted. Extremities nonedematous, no cyanosis was noted, no clubbing was noted. Neuro: Cranial nerves II through XII are grossly intact, no focal motor deficits were noted, sensation to light touch and pinprick is intact, motor exam 5/5 throughout. Psych: Patient is alert and oriented x3, she does not appear anxious or depressed, she does not appear agitated. Patient was discharged in stable condition on 01/19/2025 Weight / BMI Weight Weight: 64.5 kg Body Mass Index (BMI) 25.9 ABG / Lab / Microbiology Data 01/19/25 05:55 01/19/25 05:55 Laboratory: Laboratory Results - last 24 hr 01/18/25 14:13: Sodium 137, Potassium 3.6, Chloride 106, Carbon Dioxide 19.5 L, Anion Gap 12, BUN 7, Creatinine 0.65 L, Est GFR (MDRD) Non-Af 102, BUN/Creatinine Ratio 10.4, Glucose 94, Calcium 8.5, Magnesium 1.8, Troponin T High Sens < 6, NT pro BNP II 285, Vitamin B12 2681 H 01/18/25 14:15: D-Dimer Quant (PE/DVT) 0.72 H* 01/18/25 15:55: WBC 12.3 H, RBC 3.74 L, Hgb 11.3 L, Hct 34.3 L, MCV 91.7, MCH 30.2, MCHC 32.9, RDW Std Deviation 48.8 H, RDW Coeff of Twin 14.6, Plt Count 301, MPV 10.1, Immature Gran % (Auto) 0.500, Neut % (Auto) 85.1 H, Lymph % (Auto) 10.2 L, [place] % (Auto) 3.3, Eos % (Auto) 0.6, Baso % (Auto) 0.3, Absolute Neuts (auto) 10.4 H, Absolute Lymphs (auto) 1.25, Nucleated RBC % 0 01/18/25 19:58: Urine Color Straw, Urine Clarity Clear, Urine pH 7.0, Ur Specific [place] 1.005, Urine Protein Negative, Urine Glucose (UA) Normal, Urine Ketones Negative, Urine Occult Blood Negative, Urine Nitrite Negative, Urine Bilirubin Negative, Urine Urobilinogen Normal, Ur Leukocyte Esterase Negative, Urine RBC 0 SEEN, Urine WBC 0 SEEN, Ur Squamous Epith Cells 0 SEEN, Urine Bacteria 0 SEEN, Urine Mucus 0 SEEN 01/18/25 20:55: Serum Folate 18.60 01/19/25 05:55: WBC 11.0, RBC 3.82 L, Hgb 11.5 L, Hct 35.5 L, MCV 92.9, MCH 30.1, MCHC 32.4, RDW Std Deviation 49.7 H, RDW Coeff of Twin 14.6, Plt Count 298, MPV 10.2, Immature Gran % (Auto) 0.500, Neut % (Auto) 91.2 H, Lymph % (Auto) 5.8 L, [place] % (Auto) 2.4, Eos % (Auto) 0.0, Baso % (Auto) 0.1, Absolute Neuts (auto) 10.0 H, Absolute Lymphs (auto) 0.64 L, Nucleated RBC % 0, Sodium 139, Potassium 3.7, Chloride 112 H, Carbon Dioxide 16.1 L, Anion Gap 11, BUN 7, Creatinine 0.48 L, Estim Creat Clear Calc 112.66, Est GFR (MDRD) Non-Af 110, BUN/Creatinine Ratio 15.4, Glucose 129 H, Calcium 8.3, Phosphorus 3.2, Total Bilirubin 0.31, AST 27, ALT 18, Alkaline Phosphatase 118 H, Total Protein 5.6 L, Albumin 2.5 L, Globulin 3.2, Albumin/Globulin Ratio 0.8 L, TSH 0.015 L Microbiology: Microbiology 01/18/25 22:55 Mucosa - Nasopharyngeal Respiratory Panel (PCR) - Final 01/18/25 19:35 Mucosa - Nose SARS-CoV-2, Influenza & RSV (PCR) - Final ABG: ABG 01/18/25 23:29 Specimen Type ART Sample Site L Radial pH 7.45 Bicarbonate Actual 25.1 Total CO2 26 Base Excess 1 O2 Saturation 96 O2 % 2.0 ABG pCO2 36.0 ABG pO2 77 [place] Test Positive O2 Delivery Device Cannula Vent Mode Not entered Radiography Diagnostic Testing: Radiology Impression Chest CTA 01/18/25 17:33 IMPRESSION: Probable pneumonia. Enlarged/prominent mediastinal lymph nodes which may be reactive. No pulmonary embolism. Reading Location: [place] [address] Venous Doppler Study 01/18/25 21:09 Interpretation Summary Deep veins of the bilateral lower extremities are patent and compressible segmentally. There is no evidence of bilateral lower extremity deep vein thrombosis. The bilateral great saphenous veins appear patent and compressible segmentally. Ordering Physician: Jigar Bullock Referring Physician: Mark Gomez Performed By: Coretta Pal RVT D/C Instructions Weight Bearing Status: Full weight bearing DC O2, CPAP, BIPAP Needs Home O2 Discharge instructions: No Meaningful Use Info Meaningful Use Meaningful Use Diagnoses (Choose all that apply): None applicable Ischemic Stroke Statin Dosing Therapy Reference: STATIN DOSE THERAPY REFERENCE: * Patients > 75 years receive moderate or high dose statin therapy. * Patients 75 years or YOUNGER should receive HIGH intensity statin dose unless contraindicated. You will be required to document reason for non-treatment if statin daily dose does not meet guidelines. HIGH DOSE STATIN THERAPY DAILY Atorvastatin > than or = to 40 mg Rosuvastatin > than or = to 20 mg Amlodipine + Atorvastatin > than or = to 2.5/40 mg Ezetimibe + Simvastatin 10/80 mg Simvastatin 80mg Discharge Plan Admission Admit Date/Time: 01/18/25 19:46 Primary Reason for Your Visit: Exacerbation of COPD, pneumonia Attending Provider: Finn Martinez Primary Care Provider: Mark Gomez Consulting Providers: Jigar Bullock Instructions Additional Instructions / Restrictions: Discussed your possible need for CPAP, you may have to undergo further testing Discharge Orders/Prescriptions Prescriptions: New levofloxacin 750 mg tablet 750 mg PO DAILY Qty: 6 0RF Rx Instructions: Start on 01/20/2025 prednisone 20 mg tablet 40 mg PO DAILY Qty: 16 0RF Rx Instructions: Start on 01/19/2025 Continued albuterol sulfate 90 mcg/actuation HFA aerosol inhaler 2 puff inhalation Q4H PRN (Reason: shortness of breath or wheezing) Qty: 8.5 6RF Rx Instructions: administer with spacer sumatriptan succinate [Imitrex] 100 MG tablet 100 mg PO .X1 PRN zolpidem [Ambien] 10 MG tablet 5 - 10 mg PO QHS PRN (Reason: sleep) duloxetine 60 MG capsule,delayed release(DR/EC) 60 mg PO BID albuterol sulfate 2.5 mg /3 mL (0.083 %) solution for nebulization 2.5 mg inhalation Q2H PRN (Reason: Wheezing) Patient Comments: only use when I get sick amitriptyline 75 mg tablet 75 mg PO QHS topiramate 100 mg tablet 100 mg PO BID tizanidine 4 mg capsule 4 mg PO TID PRN PRN (Reason: muscle spasm) Patient Comments: Typically only takes at bedtime. buprenorphine 15 mcg/hour patch weekly 1 patch transdermal QWEEK Patient Comments: Patient changes on . amitriptyline 150 mg tablet 150 mg PO QHS levothyroxine 175 mcg tablet 175 mcg PO DAILY biotin 10 mg tablet 10 mg PO DAILY potassium chloride 10 mEq tablet extended release 10 meq PO DAILY baclofen 10 mg tablet 10 mg PO BID pyridoxine (vitamin B6) 100 mg tablet 100 mg PO DAILY (DME) Nebulizer machine See Rx Instructions .ROUTE .MEDSUPPLY Qty: 1 0RF Rx Instructions: As directed Referrals / Follow Up: Mark Gomez DO [Primary Care Provider] - In 1 Week Disposition Disposition (needs filled in before D/C Order can be placed): Home, Self Care Charges/Coding Visit Charges Inpatient E&M: 23276 Disch Hosp
--- NOTE | 2025-01-19 14:51 | CASEMGMT ---
Pt does not qualify for home oxygen.
[2025-01-19] MEDS: Potassium Chloride Oral Tablet 20 MEQ 40 MEQ PO (16:38)
[2025-01-19] MEDS: Furosemide 40 MG Tablet PO (16:39)
[2025-01-19] MEDS: Acetaminophen 325 MG Tablet 650 MG PO (16:39)
[2025-01-19] MEDS: 0.9% Saline Lock 10 ML Syringe IV (20:59)
[2025-01-19] MEDS: Ceftriaxone 1 GM/50 ML BAG IV (21:01)
[2025-01-19] MEDS: Amitriptyline 25 MG Tablet 75 MG PO (21:03)
[2025-01-19] MEDS: Azithromycin 500 MG in 0.9% Normal Saline (250mL Bag) 250 ML 255 MG IV (22:19)
[2025-01-20] VITALS (10 sets, daily range): BP systolic 114–133; BP diastolic 72–84; PULSE 70–90; RESP 16–24; TEMP 36.4–37.2; O2SAT 86–96; BMI 27.3
[2025-01-20] MEDS: Levothyroxine 175 MCG Tablet PO (05:29)
--- NOTE | 2025-01-20 05:55 | ECHOD_ITS ---
Reason For Study Reason For Study: SOB Procedure This was a 2D Doppler, Color Flow transthoracic echocardiogram. Exam performed portable in patient room. Left Ventricle Normal LV size. The estimated ejection fraction is 55 %. No evidence for diastolic dysfunction. No regional wall motion abnormalities noted. Right Ventricle Normal RV size. Normal systolic function. Atria The left and right atria are normal. No doppler evidence for ASD. Mitral Valve There is no mitral valve stenosis. Mild (1+) mitral valve insufficiency. Tricuspid Valve There is no tricuspid stenosis. Mild tricuspid valve insufficiency. Pulmonary artery systolic pressure is 35 mmHg. Aortic Valve Trisinus/trileaflet aortic valve. There is no aortic stenosis. No aortic valve insufficiency. Pulmonic Valve There is no pulmonic valvular stenosis. No pulmonic valve insufficiency. Great Vessels Normal sized aortic root. Pericardium/Pleural No pericardial effusion. MMode/2D Measurements & Calculations LVIDd: 4.4 cm IVSd: 0.92 cm Ao root diam: 2.9 cm LVIDs: 3.0 cm LVPWd: 0.89 cm RVDd: 2.9 cm FS: 33.2 % LAV(MOD-bp): 23.6 ml LVAd ap4: 21.5 cm2 LVAd ap2: 21.3 cm2 LAV(MOD-bp) Indexed: 14.0 ml/m2 LVLd ap4: 6.9 cm LVLd ap2: 7.4 cm LAV(MOD-sp2): 18.4 ml EDV(MOD-sp4): 58.4 ml EDV(MOD-sp2): 55.2 ml LAV(MOD-sp4): 24.0 ml EDV(sp4-el): 56.7 ml EDV(sp2-el): 51.8 ml LVAs ap4: 12.8 cm2 LVAs ap2: 11.0 cm2 LVLs ap4: 5.9 cm LVLs ap2: 6.5 cm ESV(MOD-sp4): 26.0 ml ESV(MOD-sp2): 17.8 ml ESV(sp4-el): 23.5 ml ESV(sp2-el): 16.0 ml EF(MOD-sp4): 55.5 % EF(MOD-sp2): 67.7 % EF(sp4-el): 58.5 % SV(MOD-sp4): 32.4 ml SV(MOD-sp2): 37.3 ml SV(sp4-el): 33.2 ml SI(MOD-sp4): 19.2 ml/m2 SI(MOD-sp2): 22.1 ml/m2 LA A4 area: 11.7 cm2 LA dimension(2D): 3.0 cm RA A4 area: 11.0 cm2 TAPSE: 1.7 cm Time Measurements MV dec time: 0.15 sec Doppler Measurements & Calculations MV E max kin: 89.8 cm/sec Lat Peak E' Kin: 11.2 cm/sec Med Peak E' Kin: 10.8 cm/sec MV A max kin: 96.4 cm/sec E/E' lat: 8.0 E/E' med: 8.3 MV E/A: 0.93 Ao V2 max: 124.3 cm/sec LV V1 max: 84.3 cm/sec MV dec slope: 603.9 cm/sec2 Ao max P.2 mmHg LV V1 max P.8 mmHg Ao V2 mean: 83.6 cm/sec LV V1 mean P.4 mmHg Ao mean P.2 mmHg LV V1 mean: 55.7 cm/sec Ao V2 VTI: 24.6 cm LV V1 VTI: 17.3 cm AV (velocity ratio): 0.71 PA V2 max: 63.2 cm/sec TR max kin: 276.4 cm/sec TR max P.6 mmHg ECHO/Echo Complete Interpretation Summary The estimated ejection fraction is 55 %. No evidence for diastolic dysfunction. Mild (1+) mitral valve insufficiency. Ordering Physician: Tereletsky, Finn Referring Physician: Mark Gomez Performed By: Gertrude Gamez, [facility]
[2025-01-20] MEDS: Lactobacillis Acidophilus 1 CAP PO ×4 (07:32→21:29)
[2025-01-20] MEDS: Ascorbic Acid 500 MG Tablet 1000 MG PO ×2 (07:32→17:15)
[2025-01-20] MEDS: Enoxaparin 40 MG/0.4 ML Syringe SC (07:32)
[2025-01-20] MEDS: Potassium Chloride Oral Tablet 10 MEQ PO (07:32)
[2025-01-20] MEDS: DULoxetine Hcl 60 MG Capsule PO ×2 (07:32→21:30)
[2025-01-20] MEDS: Baclofen 10 MG Tablet PO ×2 (07:33→21:30)
[2025-01-20] MEDS: Topiramate 100 MG Tablet PO ×2 (07:33→21:29)
[2025-01-20] MEDS: Zinc Sulfate 50 mg zinc (220 mg) ORAL capsule PO (07:34)
[2025-01-20] MEDS: Pyridoxine HCl 100 MG Tablet PO (07:34)
[2025-01-20] MEDS: Cholecalciferol (Vit D3) 125 MCG CAPSULE (5,000 UNITS) PO (07:34)
[2025-01-20] MEDS: MethylPREDNISolone 125 MG/2 ML Vial 60 MG IV ×2 (07:35→21:26)
[2025-01-20] MEDS: SUMAtriptan 6 MG/0.5 ML Vial SC (07:38)
[2025-01-20 07:59] LABS: Phosphorus 3.1 mg/dL (2.7-4.5)
--- NOTE | 2025-01-20 11:15 | PN.HOSP_ITS ---
Reason for Visit Reason for Visit: Diagnoses Elevated white blood cell count, unspecified (01/18/25) Overweight (01/18/25) Obstructive sleep apnea (adult) (pediatric) (01/18/25) Pneumonia, unspecified organism (01/18/25) Chronic obstructive pulmonary disease with (acute) exacerbation (01/18/25) Other abnormalities of breathing (01/18/25) Tobacco use (01/18/25) Subjective Subjective Patient was seen and examined today, she is currently on 2 L of oxygen via nasal cannula. Objective Data Objective Data Vital Signs: Vital Signs Temp Pulse Resp BP Pulse Ox O2 Del Method O2 Flow Rate 97.6 F L 70 24 H 131/80 H 86 Room Air 2 01/20/25 11:04 01/20/25 11:04 01/20/25 11:04 01/20/25 11:04 01/20/25 11:05 01/20/25 11:05 01/20/25 11:04 Oxygen Flow Rate (L/min) 2 Oxygen Delivery Method Room Air Weight: 68 kg Body Mass Index (BMI) 27.3 Intake & Output: Intake and Output for Last 24 Hours 01/18/25 01/19/25 01/20/25 23:59 23:59 23:59 Intake Total 505 / 505 2805 / 2805 250 / 250 Balance 505 / 505 2805 / 2805 250 / 250 Lab / Micro Data 01/19/25 05:55 01/19/25 05:55 Labs: Laboratory Results - last 24 hr 01/20/25 06:38: Phosphorus 3.1 Micro: Microbiology 01/18/25 22:55 Mucosa - Nasopharyngeal Respiratory Panel (PCR) - Final 01/18/25 19:35 Mucosa - Nose SARS-CoV-2, Influenza & RSV (PCR) - Final Radiography Diagnostic Testing: Radiology Impression Venous Doppler Study 01/18/25 21:09 Interpretation Summary Deep veins of the bilateral lower extremities are patent and compressible segmentally. There is no evidence of bilateral lower extremity deep vein thrombosis. The bilateral great saphenous veins appear patent and compressible segmentally. Ordering Physician: Jigar Bullock Referring Physician: Mark Gomez Performed By: Coretta Pal RVT Physical Exam Const alert, oriented x3 and no apparent distress Constitutional Narrative: Patient appears older than her stated age General Appearance: cooperative, well kempt and well developed Orientation / Consciousness: awake, oriented to person, oriented to place and oriented to time HEENT normocephalic, head/scalp atraumatic and moist oral mucous membranes Eyes PERRL, EOMs intact bilaterally and conjunctivae normal Neck supple, no JVD, thyroid normal and no carotid bruits General: trachea midline Resp normal respiratory effort, no retractions and no use of accessory muscles Resp Narrative: Scattered expiratory wheezes are noted bilaterally Auscultation: wheezes expiratory wheezes; Negative for rales or rhonchi Cardio regular rate, regular rhythm, S1 normal heart sound, S2 normal heart sound, no murmurs, no rub and no gallops GI normal to inspection, nondistended, normoactive bowel sounds, soft to palpation, non-tender and non-distended Extremity no clubbing, cyanosis or edema Skin no rashes or lesions noted General Skin Exam: no breakdown Neuro oriented x3, CN's II-XII intact bilaterally, moves all extremities, no focal motor deficits and no sensory deficits noted Sensorium / Orientation: awake and alert Speech: speech normal Psych affect normal Assessment & Plan Assessment/Plan (1) COPD exacerbation: PLAN: Plan 1 COPD exacerbation-patient will remain on IV Solu-Medrol and aerosol treatments #2 hypoxia secondary to #1-pulse ox will be monitored, patient will need a 5- minute walking pulse oximetry before she is able to go home #3. Acquired pneumonia-patient will remain on Zithromax and Rocephin Patient will undergo an echocardiogram today, I suspect she may have a component of pulmonary hypertension. Patient will be reevaluated tomorrow for possible discharge home, she may need home O2 set up. Total clinical time spent by myself addressing the patient's medical issues, reviewing other data, and collaborating with patient's care team: 35 minutes Charges/Coding Visit Charges Inpatient E&M: 38218 Subs Hosp L2
--- NOTE | 2025-01-20 11:21 | PN.HOSP_ITS ---
Reason for Visit Reason for Visit: Diagnoses Elevated white blood cell count, unspecified (01/18/25) Overweight (01/18/25) Obstructive sleep apnea (adult) (pediatric) (01/18/25) Pneumonia, unspecified organism (01/18/25) Chronic obstructive pulmonary disease with (acute) exacerbation (01/18/25) Other abnormalities of breathing (01/18/25) Tobacco use (01/18/25) Subjective Subjective The date of this progress note is 01/19/2025: I had anticipated the patient would be discharged home today but during a 6-minute walk on room air, the patient desatted to 75%. Made decision to keep the patient here in the hospital, give her 1 dose of Lasix and obtain an echocardiogram to rule out pulmonary hypertension. I talked at length with the patient's on the phone today. Objective Data Objective Data Vital Signs: Vital Signs Temp Pulse Resp BP Pulse Ox O2 Del Method O2 Flow Rate 97.6 F L 70 24 H 131/80 H 86 Room Air 2 01/20/25 11:04 01/20/25 11:04 01/20/25 11:04 01/20/25 11:04 01/20/25 11:05 01/20/25 11:05 01/20/25 11:04 Oxygen Flow Rate (L/min) 2 Oxygen Delivery Method Room Air Weight: 68 kg Body Mass Index (BMI) 27.3 Intake & Output: Intake and Output for Last 24 Hours 01/18/25 01/19/25 01/20/25 23:59 23:59 23:59 Intake Total 505 / 505 2805 / 2805 250 / 250 Balance 505 / 505 2805 / 2805 250 / 250 Lab / Micro Data 01/19/25 05:55 01/19/25 05:55 Labs: Laboratory Results - last 24 hr 01/20/25 06:38: Phosphorus 3.1 Micro: Microbiology 01/18/25 22:55 Mucosa - Nasopharyngeal Respiratory Panel (PCR) - Final 01/18/25 19:35 Mucosa - Nose SARS-CoV-2, Influenza & RSV (PCR) - Final Radiography Diagnostic Testing: Radiology Impression Venous Doppler Study 01/18/25 21:09 Interpretation Summary Deep veins of the bilateral lower extremities are patent and compressible segmentally. There is no evidence of bilateral lower extremity deep vein thrombosis. The bilateral great saphenous veins appear patent and compressible segmentally. Ordering Physician: Jigar Bullock Referring Physician: Mark Gomez Performed By: Coretta Pal RVT Physical Exam Const alert, oriented x3 and no apparent distress Constitutional Narrative: Patient appears older than her stated age General Appearance: cooperative, well kempt and well developed Orientation / Consciousness: awake, oriented to person, oriented to place and oriented to time HEENT normocephalic, head/scalp atraumatic and moist oral mucous membranes Eyes PERRL, EOMs intact bilaterally and conjunctivae normal Neck supple, no JVD, thyroid normal and no carotid bruits General: trachea midline Resp normal respiratory effort and no use of accessory muscles Resp Narrative: There are scattered expiratory wheezes bilaterally Auscultation: wheezes; Negative for rales or rhonchi Cardio regular rate, regular rhythm, S1 normal heart sound, S2 normal heart sound, no murmurs, no rub and no gallops GI normal to inspection, nondistended, normoactive bowel sounds, soft to palpation, non-tender and non-distended Extremity no clubbing, cyanosis or edema Skin no rashes or lesions noted General Skin Exam: no breakdown Neuro oriented x3, CN's II-XII intact bilaterally, moves all extremities, no focal motor deficits and no sensory deficits noted Sensorium / Orientation: awake and alert Speech: speech normal Psych affect normal Assessment & Plan Assessment/Plan (1) COPD exacerbation: PLAN: Plan 1 COPD exacerbation-patient will remain on IV Solu-Medrol and aerosol treatments #2 hypoxia secondary to #1-pulse ox will be monitored, patient will need a 5- minute walking pulse oximetry before she is able to go home #3. Acquired pneumonia-patient will remain on Zithromax and Rocephin Patient will undergo an echocardiogram tomorrow, I suspect she may have a component of pulmonary hypertension. Total clinical time spent by myself addressing the patient's medical issues, reviewing other data, and collaborating with patient's care team: 35 minutes Charges/Coding Visit Charges Inpatient E&M: 52548 Subs Hosp L2
[2025-01-20] MEDS: NYSTATIN 500,000 UNIT/5 ML UDC 500000 UNIT PO ×2 (12:36→17:16)
[2025-01-20] MEDS: tiZANidine HCl 2 MG Tablet 4 MG PO (17:15)
--- NOTE | 2025-01-20 20:16 | NURSING ---
pt assisted to the bathroom with 3 L NC on. When pt got back to bed and pulse ox was hooked back up, oxygen was 82% on 3L.
[2025-01-20] MEDS: 0.9% Saline Lock 10 ML Syringe IV (21:25)
[2025-01-20] MEDS: Ceftriaxone 1 GM/50 ML BAG IV (21:28)
[2025-01-20] MEDS: Amitriptyline 25 MG Tablet 75 MG PO (21:29)
[2025-01-20] MEDS: Azithromycin 500 MG in 0.9% Normal Saline (250mL Bag) 250 ML 255 MG IV (22:40)
[2025-01-21] VITALS (10 sets, daily range): BP systolic 132–137; BP diastolic 74–86; PULSE 81–84; RESP 20; TEMP 36.1–36.4; O2SAT 83–97; BMI 27.3
[2025-01-21] MEDS: Levothyroxine 175 MCG Tablet PO (05:41)
[2025-01-21] MEDS: Ascorbic Acid 500 MG Tablet 1000 MG PO (07:48)
--- NOTE | 2025-01-21 08:38 | DS.PCM_ITS ---
Providers Date of Admission: 01/18/25 Date of Discharge: 01/21/25 Primary Care Physician: Dr. Mark Gomez, Reason For Visit: PNA & AE COPD Diagnosis Discharge Diagnosis (1) COPD exacerbation: Status: Chronic Code(s): J44.1 - Chronic obstructive pulmonary disease with (acute) exacerbation Plan Patient is a 59-year-old lady who presented with shortness of breath underwent CT a of the chest which was negative for PE however did show probable pneumonia and enlarged and prominent sternal lymph nodes which were thought to be reactive. Patient was also found to be wheezing and in an assessment of COPD with acute exacerbation was made 1. Pneumonia - Suspected to be secondary to gram-positive organism patient placed on Rocephin and Zithromax and placed on oxygen titrated to keep Pulse Ox greater than 90. Patient was however discharged home on Levaquin 2. COPD with acute exacerbation ? Patient was treated with bronchodilator treatment regimen, systemic steroid as well as oxygen titrated to keep saturation greater than 90 3. Acute hypoxia ? Secondary to #1 and #2. Patient was placed on supplemental oxygen. Patient was assessed for home oxygen prior to discharge she did qualify -I have reviewed the oxygen testing, and this patient qualifies for the home equipment and portability. The patient is mobile in the home and the community. 4. Tobacco dependence ? Counseled on cessation, offered nicotine patch for tobacco cravings 5. Hypothyroidism ? Patient is on levothyroxine home dose continued 6. Chronic migraines ? Patient is on Imitrex as needed Medications at Discharge Home Medications sumatriptan succinate 100 mg tablet (Imitrex) 100 mg PO .X1 PRN migraines 01/02/18 zolpidem 10 mg tablet (Ambien) 5 - 10 mg PO QHS PRN sleep 01/02/18 duloxetine 60 mg capsule,delayed release 60 mg PO BID antidepressant 07/14/18 albuterol sulfate 90 mcg/actuation aerosol inhaler 2 puff inhalation Q4H PRN shortness of breath or wheezing #8.5 grams 11/13/22 Nebulizer machine #1 ea 12/19/22 albuterol sulfate 2.5 mg/3 mL (0.083 %) solution for nebulization 2.5 mg inhalation Q2H PRN Wheezing 02/16/24 amitriptyline 75 mg tablet 75 mg PO QHS antidepressant 06/18/24 tizanidine 4 mg capsule 4 mg PO TID PRN PRN muscle spasm 02/16/24 topiramate 100 mg tablet 100 mg PO BID migraines 02/16/24 buprenorphine 15 mcg/hour weekly transdermal patch 1 patch transdermal QWEEK pain 02/17/24 amitriptyline 150 mg tablet 150 mg PO QHS antidepressant 01/18/25 baclofen 10 mg tablet 10 mg PO BID muscle relaxer 01/18/25 biotin 10 mg tablet 10 mg PO DAILY vitamin 01/18/25 levothyroxine 175 mcg tablet 175 mcg PO DAILY hypothyroid 01/18/25 potassium chloride 10 mEq tablet,extended release 10 meq PO DAILY supplement 01/18/25 pyridoxine (vitamin B6) 100 mg tablet 100 mg PO DAILY supplement 01/18/25 levofloxacin 750 mg tablet 750 mg PO DAILY #6 tabs 01/19/25 prednisone 20 mg tablet 40 mg (2 x 20 mg) PO DAILY #16 tabs 01/19/25 Hospital Course Summary of Care Provided Minutes Spent on Discharge: 32 Physical Exam Narrative GENERAL: cooperative on supplemental oxygen HEENT: Atraumatic; normocephalic EYES; Anicteric, Normal Conjunctiva NECK; supple, normal thyroid, RESPIRATORY: Diminished to auscultation CARDIOVASCULAR: Regular S1 S2, GI: soft, normoactive bowel sounds, : No Renal angle tenderness; EXTREMITIES: No edema, no clubbing, MUSCULOSKELETAL: no muscle wasting NEURO: Awake; no lateralizing signs. SKIN: No Rash PSYCH; Flat affect Weight / BMI Weight Weight: 68 kg Body Mass Index (BMI) 27.3 ABG / Lab / Microbiology Data 01/19/25 05:55 01/19/25 05:55 Microbiology: Microbiology 01/20/25 07:45 Sputum, Expectorated/Coughed Gram Stain - Final 01/20/25 07:45 Sputum, Expectorated/Coughed Respiratory Culture - Final 01/18/25 22:55 Mucosa - Nasopharyngeal Respiratory Panel (PCR) - Final 01/18/25 19:35 Mucosa - Nose SARS-CoV-2, Influenza & RSV (PCR) - Final Radiography Diagnostic Testing: Radiology Impression Chest X-Ray 01/18/25 13:30 IMPRESSION: Pulmonary congestion and edema. Pneumonia cannot be excluded. [facility] Chest CTA 01/18/25 17:33 IMPRESSION: Probable pneumonia. Enlarged/prominent mediastinal lymph nodes which may be reactive. No pulmonary embolism. Reading Location: [id number] Echocardiogram 01/20/25 05:55 Interpretation Summary The estimated ejection fraction is 55 %. No evidence for diastolic dysfunction. Mild (1+) mitral valve insufficiency. Ordering Physician: Finn Martinez Referring Physician: Mark Gomez Performed By: Gertrude Gamez RDCS D/C Instructions Discharge Diet: No restrictions Discharge Activity: Return to Normal Activity Weight Bearing Status: Full weight bearing Call your doctor if you observe: Fever of 101 or Higher, Shortness of breath, Fainting spells and Chest pain DC O2, CPAP, BIPAP Needs Home O2 Discharge instructions: Yes Type of respiratory needs?: Oxygen (3) Oxygen frequency: With Ambulation Oxygen liters per minute during Ambulation: 3 DC home with Oxygen: Yes Home O2 Review: I have reviewed the oxygen testing, and the patient qualifies for home oxygen equipment and portability. The patient is mobile in the home and the community. Meaningful Use Info Meaningful Use Meaningful Use Diagnoses (Choose all that apply): None applicable Ischemic Stroke Statin Dosing Therapy Reference: STATIN DOSE THERAPY REFERENCE: * Patients > 75 years receive moderate or high dose statin therapy. * Patients 75 years or YOUNGER should receive HIGH intensity statin dose unless contraindicated. You will be required to document reason for non-treatment if statin daily dose does not meet guidelines. HIGH DOSE STATIN THERAPY DAILY Atorvastatin > than or = to 40 mg Rosuvastatin > than or = to 20 mg Amlodipine + Atorvastatin > than or = to 2.5/40 mg Ezetimibe + Simvastatin 10/80 mg Simvastatin 80mg Discharge Plan Admission Admit Date/Time: 01/18/25 19:46 Primary Reason for Your Visit: Exacerbation of COPD, pneumonia Attending Provider: Jigar Rizvi Primary Care Provider: Mark Gomez Consulting Providers: Jigar Bullock; Finn Martinez Instructions Additional Instructions / Restrictions: Discussed your possible need for CPAP, you may have to undergo further testing Discharge Orders/Prescriptions Prescriptions: New levofloxacin 750 mg tablet 750 mg PO DAILY Qty: 6 0RF Rx Instructions: Start on 01/20/2025 prednisone 20 mg tablet 40 mg PO DAILY Qty: 16 0RF Rx Instructions: Start on 01/19/2025 Continued albuterol sulfate 90 mcg/actuation HFA aerosol inhaler 2 puff inhalation Q4H PRN (Reason: shortness of breath or wheezing) Qty: 8.5 6RF Rx Instructions: administer with spacer sumatriptan succinate [Imitrex] 100 MG tablet 100 mg PO .X1 PRN zolpidem [Ambien] 10 MG tablet 5 - 10 mg PO QHS PRN (Reason: sleep) duloxetine 60 MG capsule,delayed release(DR/EC) 60 mg PO BID albuterol sulfate 2.5 mg /3 mL (0.083 %) solution for nebulization 2.5 mg inhalation Q2H PRN (Reason: Wheezing) Patient Comments: only use when I get sick amitriptyline 75 mg tablet 75 mg PO QHS topiramate 100 mg tablet 100 mg PO BID tizanidine 4 mg capsule 4 mg PO TID PRN PRN (Reason: muscle spasm) Patient Comments: Typically only takes at bedtime. buprenorphine 15 mcg/hour patch weekly 1 patch transdermal QWEEK Patient Comments: Patient changes on . amitriptyline 150 mg tablet 150 mg PO QHS levothyroxine 175 mcg tablet 175 mcg PO DAILY biotin 10 mg tablet 10 mg PO DAILY potassium chloride 10 mEq tablet extended release 10 meq PO DAILY baclofen 10 mg tablet 10 mg PO BID pyridoxine (vitamin B6) 100 mg tablet 100 mg PO DAILY (DME) Nebulizer machine See Rx Instructions .ROUTE .MEDSUPPLY Qty: 1 0RF Rx Instructions: As directed Referrals / Follow Up: Mark Gomez DO [Primary Care Provider] - In 1 Week Disposition Disposition (needs filled in before D/C Order can be placed): Home, Self Care Charges/Coding Visit Charges Inpatient E&M: 26070 Disch Hosp >30min
[2025-01-21] MEDS: Baclofen 10 MG Tablet PO (10:17)
[2025-01-21] MEDS: DULoxetine Hcl 60 MG Capsule PO (10:19)
[2025-01-21] MEDS: Cholecalciferol (Vit D3) 125 MCG CAPSULE (5,000 UNITS) PO (10:19)
[2025-01-21] MEDS: Pyridoxine HCl 100 MG Tablet PO (10:19)
[2025-01-21] MEDS: MethylPREDNISolone 125 MG/2 ML Vial 60 MG IV (10:20)
[2025-01-21] MEDS: Topiramate 100 MG Tablet PO (10:20)
[2025-01-21] MEDS: Lactobacillis Acidophilus 1 CAP PO (10:21)
== END 2025-01-21 11:12 | disposition home or self-care (01) | DRG 871 ==
LOC: ED 19:04 → MS3 19:56
PROVIDERS: Emergency Medicine; Admitting Provider Internal Medicine; Emergency Provider Emergency Medicine; PCP Student in an Organized Health Care Education/Training Program; Visit Provider Internal Medicine
DX: A41.9 Sepsis, unspecified organism (principal); J15.9 Unspecified bacterial pneumonia; J44.0 Chronic obstructive pulmonary disease with (acute) lower respiratory infection; J44.1 Chronic obstructive pulmonary disease with (acute) exacerbation; I27.20 Pulmonary hypertension, unspecified; E11.9 Type 2 diabetes mellitus without complications; M06.9 Rheumatoid arthritis, unspecified; E89.0 Postprocedural hypothyroidism; F32.A Depression, unspecified; M79.7 Fibromyalgia; G47.33 Obstructive sleep apnea (adult) (pediatric); G43.709 Chronic migraine without aura, not intractable, without status migrainosus; K21.9 Gastro-esophageal reflux disease without esophagitis; F17.210 Nicotine dependence, cigarettes, uncomplicated; R09.02 Hypoxemia; E66.3 Overweight; Z68.28 Body mass index [BMI] 28.0-28.9, adult; Z79.890 Hormone replacement therapy; Z79.899 Other long term (current) drug therapy
CPT/HCPCS: 36415; 36600; 71045; 71275; 80048; 80053; 81001; 82607; 82746; 82803; 83735; 83880; 84100; 84443; 84484; 85025; 85379; 87070; 87205; 87631; 87633; 93005; 93306; 93970; 94640; 94668; 94762; 97162; 97530; 97802; 99252; 99284; Q9967; A4216; G0463; J3030

== ENCOUNTER 2025-02-14 13:50 | Emergency (ER) | payer MEDICARE, OTHER, SELFPAY ==
[2025-02-14 13:51] VITALS: BP 82/60; PULSE 115; RESP 18; TEMP 36.3; O2SAT 96; BMI 25.6
--- NOTE | 2025-02-14 15:04 | EX.ED.DYSGE1 ---
HPI History of Present Illness Chief Complaint: Lower Extremity Injury Narrative Narrative: Patient is a 59-year-old female past medical history of COPD, type 2 diabetes, migraine headaches, fibromyalgia, hypothyroidism who presents to the emergency department chief complaint of right foot pain. Patient states that about 2 days ago she kicked a chair and noted that ever since then she has had foot pain however noted that this morning when she woke up and tried to ambulate the pain was significantly worse prompting her to come here for further evaluation management. Patient denies any blood thinning medications. Patient states that she has been taking Tylenol for pain control without any relief. [facility] Medical History BEAU (obstructive sleep apnea) Overweight (BMI 25.0-29.9) Acute respiratory insufficiency Leukocytosis COPD exacerbation Bilateral pneumonia Smoker Diabetes type 2, controlled BEAU (obstructive sleep apnea) Bronchitis Hiatal hernia Depression Chronic UTI Cervical herniated disc History of bronchitis Back pain Migraine headache Fibromyalgia Chronic pain disorder Hypothyroid Rheumatoid arthritis Home Medications ?Medication ?Instructions ?Recorded ?Last Taken ?Type sumatriptan succinate 100 mg 100 mg PO .X1 PRN migraines 01/02/18 01/09/25 History tablet (Imitrex) zolpidem 10 mg tablet (Ambien) 5 - 10 mg PO QHS PRN sleep 01/02/18 01/17/25 History duloxetine 60 mg capsule,delayed 60 mg PO BID antidepressant 07/14/18 01/17/25 History release albuterol sulfate 90 mcg/actuation 2 puff inhalation Q4H PRN 11/13/22 01/18/25 Rx aerosol inhaler shortness of breath or wheezing #8.5 grams Nebulizer machine #1 ea 12/19/22 Unknown Rx albuterol sulfate 2.5 mg/3 mL 2.5 mg inhalation Q2H PRN Wheezing 02/16/24 Unknown History (0.083 %) solution for nebulization amitriptyline 75 mg tablet 75 mg PO QHS antidepressant 02/16/24 01/17/25 History tizanidine 4 mg capsule 4 mg PO TID PRN PRN muscle spasm 02/16/24 01/17/25 History topiramate 100 mg tablet 100 mg PO BID migraines 02/16/24 01/16/25 History buprenorphine 15 mcg/hour weekly 1 patch transdermal QWEEK pain 02/17/24 01/18/25 History transdermal patch amitriptyline 150 mg tablet 150 mg PO QHS antidepressant 01/18/25 01/17/25 History baclofen 10 mg tablet 10 mg PO BID muscle relaxer 01/18/25 01/17/25 History biotin 10 mg tablet 10 mg PO DAILY vitamin 01/18/25 01/17/25 History levothyroxine 175 mcg tablet 175 mcg PO DAILY hypothyroid 01/18/25 01/17/25 History potassium chloride 10 mEq 10 meq PO DAILY supplement 01/18/25 01/17/25 History tablet,extended release pyridoxine (vitamin B6) 100 mg 100 mg PO DAILY supplement 01/18/25 01/17/25 History tablet levofloxacin 750 mg tablet 750 mg PO DAILY #6 tabs 01/19/25 Unknown Rx prednisone 20 mg tablet 40 mg (2 x 20 mg) PO DAILY #16 tabs 01/19/25 Unknown Rx Allergy/AdvReac Type Severity Reaction Status Date / Time hydrocodone bitartrate (From Allergy Itching Verified 02/14/25 13:51 Vicodin) ibuprofen Allergy Other Verified 02/14/25 13:51 Family History Mother Asthma Depression Myocardial infarction Heart disease Father Heart disease Myocardial infarction Hypertension Sister Hepatitis Surgical History History of knee surgery Hx of shoulder surgery History of bilateral breast reduction surgery H/O repair of rotator cuff H/O thyroidectomy H/O discectomy History of carpal tunnel release History of bunionectomy H/O gastric bypass Social History household members: none Smoking Status: Current every day smoker tobacco type: cigarettes second hand exposure: Yes alcohol intake: never substance use type: does not use ROS ROS ED ROS Narrative Constitutional: Denies any fevers, chills, headaches Cardiovascular: Denies chest pain Respiratory: Denies shortness of breath Abdomen: Denies nausea vomit diarrhea : Denies urinary symptoms Neurological: Denies numbness, weakness, tingling Musculoskeletal: Complains of the right foot pain as noted above Skin: Denies rashes or lesions EXAM Physical Exam Narrative Exam Narrative: General: Patient lying in bed rest comfortably do not appear to be in acute distress Head: Atraumatic, normocephalic Eyes: PERRL bilaterally, EOMI bilateral, no conjunctival injection noted Neck: Soft, supple, trachea midline Cardiovascular: Patient tachycardic with a regular rhythm no murmurs gallops rubs noted Respiratory: Clear to auscultation bilaterally Musculoskeletal: Patient has tenderness to palpation over the fifth metatarsal on the right side, no tenderness palpation over the medial or lateral malleolus, no tenderness to palpation proximally in the tibia fibula Extremities: +5/5 strength noted in the bilateral upper and lower extremities, DP pulses +2/4 in the right lower extremity Neurological: Patient following commands knew that she was at [facility] the year is 2024. Sensation grossly intact in the bilateral lower extremities Skin: Warm, dry, patient has ecchymosis and bruising noted to the dorsal aspect of her right foot Const Vital Signs: 02/14/25 13:51 02/14/25 15:50 Temperature 97.4 F L Temperature Source Temporal Pulse Rate 115 H 98 Respiratory Rate 18 Blood Pressure 82/60 L 103/62 Blood Pressure Mean 67 75 Pulse Ox 96 96 Oxygen Delivery Method Room Air Room Air MDM MDM MDM Narrative Medical decision making narrative: Patient is a 59-year-old female who presented to the emergency department with a chief complaint of right foot pain after hitting it on a chair 2 days ago. On the differential diagnosis includes but not limited to metatarsal fracture, ankle sprain. Once workup is obtained reviewed she will be reevaluated. Patient be given Zofran and oxycodone. Patient's x-ray of her foot was reviewed by myself and did not show any acute findings. The official read for radiology at 5:44 PM is still pending. We called multiple times for this read. Patient ultimately left the emergency department before this was read officially based. Discharge Plan Triage Chief Complaint: Lower Extremity Injury ED Provider: Nehemias Gamboa Dx/Rx/DC Orders Clinical Impression: Acute pain of right foot Prescriptions: No Action albuterol sulfate 90 mcg/actuation HFA aerosol inhaler 2 puff inhalation Q4H PRN (Reason: shortness of breath or wheezing) Qty: 8.5 6RF Rx Instructions: administer with spacer sumatriptan succinate [Imitrex] 100 MG tablet 100 mg PO .X1 PRN zolpidem [Ambien] 10 MG tablet 5 - 10 mg PO QHS PRN (Reason: sleep) duloxetine 60 MG capsule,delayed release(DR/EC) 60 mg PO BID albuterol sulfate 2.5 mg /3 mL (0.083 %) solution for nebulization 2.5 mg inhalation Q2H PRN (Reason: Wheezing) Patient Comments: only use when I get sick amitriptyline 75 mg tablet 75 mg PO QHS topiramate 100 mg tablet 100 mg PO BID tizanidine 4 mg capsule 4 mg PO TID PRN PRN (Reason: muscle spasm) Patient Comments: Typically only takes at bedtime. buprenorphine 15 mcg/hour patch weekly 1 patch transdermal QWEEK Patient Comments: Patient changes on . amitriptyline 150 mg tablet 150 mg PO QHS levothyroxine 175 mcg tablet 175 mcg PO DAILY biotin 10 mg tablet 10 mg PO DAILY potassium chloride 10 mEq tablet extended release 10 meq PO DAILY baclofen 10 mg tablet 10 mg PO BID pyridoxine (vitamin B6) 100 mg tablet 100 mg PO DAILY levofloxacin 750 mg tablet 750 mg PO DAILY Qty: 6 0RF Rx Instructions: Start on 01/20/2025 prednisone 20 mg tablet 40 mg PO DAILY Qty: 16 0RF Rx Instructions: Start on 01/19/2025 (DME) Nebulizer machine See Rx Instructions .ROUTE .MEDSUPPLY Qty: 1 0RF Rx Instructions: As directed Primary Care Provider: Mark Gomez Referrals: Mrak Gomez DO [Primary Care Provider] - Print Language: Syriac Disposition Disposition: Elopement Discharge Date/Time: 02/14/25 17:28
[2025-02-14] MEDS: Ondansetron ODT 4 MG Tablet PO (15:16)
[2025-02-14] MEDS: oxyCODONE 5 MG Tablet PO (15:16)
--- NOTE | 2025-02-14 15:20 | RAD_ITS ---
PROCEDURE: FOOT MIN 3 VIEWS 02/14/2025 REASON FOR EXAM: PAIN NEAR 5TH METATARSAL TECHNIQUE: FOOT MIN 3 VIEWS COMPARISON: None RAD/Foot min 3 Views IMPRESSION: Acute minimally displaced comminuted fracture of the 4th proximal phalanx with intra-articular involvement at the base. No dislocation. Question nondisplaced 5th proximal phalanx base fracture with intra-articular i nvolvement. Surgical pins within the distal 1st and 5th metatarsals without evidence of loo sening. Mild diffuse soft tissue swelling. Scattered moderate degenerative changes. Reading Location: [id number]
[2025-02-14 15:50] VITALS: BP 103/62; PULSE 98; O2SAT 96
--- NOTE | 2025-02-14 17:24 | ED.RN ---
Pt walked out of the room and stated that she was leaving.
== END 2025-02-14 17:28 | disposition left against medical advice (07) ==
PROVIDERS: Emergency Provider Emergency Medicine; PCP Student in an Organized Health Care Education/Training Program; Visit Provider Emergency Medicine
DX: S92.511A Displaced fracture of proximal phalanx of right lesser toe(s), initial encounter for closed fracture (principal); J44.9 Chronic obstructive pulmonary disease, unspecified; E11.9 Type 2 diabetes mellitus without complications; W22.03XA Walked into furniture, initial encounter; F17.210 Nicotine dependence, cigarettes, uncomplicated; Z79.899 Other long term (current) drug therapy
CPT/HCPCS: 73630; 99282

== ENCOUNTER → 2025-05-31 | Outpatient (CLI) | payer MEDICARE, OTHER, SELFPAY ==
[2025-05-31 11:21] LABS: Barbiturate Urine NEGATIVE (< 200 ng/mL); Benzodiazepine Urine NEGATIVE (< 200 ng/mL); PCP Urine NEGATIVE (< 25 ng/mL); THC Urine NEGATIVE (< 50 ng/mL)
== END | disposition home or self-care (01) ==
LOC: LAB 10:27
PROVIDERS: PCP Student in an Organized Health Care Education/Training Program; Referring Provider Anesthesiology Pain Medicine; Visit Provider Anesthesiology Pain Medicine
DX: F11.20 Opioid dependence, uncomplicated (principal)
CPT/HCPCS: 80307